=== PATIENT | female | born 1960 | race African-American/Black ===

== ENCOUNTER 2017-11-28 10:22 | Inpatient (IN) | payer OTHER ==
[~2017-11-28] VITALS: Ht 162.6 cm; Wt 49.0 kg
[2017-11-28] VITALS (29 sets, daily range): BP systolic 101–144; BP diastolic 49–71
[2017-11-28] MEDS ORDERED: NACL 0.9% 500 ML IV ONE ×2 (10:35→23:05)
--- NOTE | 2017-11-28 10:38 | NUR ---
PT BIBA ALS TO BED 10 FOR LOC
--- NOTE | 2017-11-28 10:40 | NUR ---
PATIENT TO BED #10. MONITORED.OXYGEN 2LNC ADM. DR. HOGAN MADE AWARE OF PATIENTS CONDITION. BS STILL READING HIGH. IVF STARTED
--- NOTE | 2017-11-28 10:45 | NUR ---
EKG REVIEWED BY DR. HOGAN.
--- NOTE | 2017-11-28 10:55 | NUR ---
DR. HOGAN AT BEDSIDE
[2017-11-28] MEDS ORDERED: NACL 0.9% 1,000 ML IV ONE ×2 (11:05→19:50)
--- NOTE | 2017-11-28 11:19 | NUR ---
Note undone in EDM - 11/28/17 at 1413 by LUIS PT IN BED 3 2 IVS INTACT AND RUNNING NACL BOLUS FLUIDS. PT IS MOANING AND DOESNT ANSWER QUESTIONS FROM STAFF. PT WAS BIBA AT 1035 SHE WAS FOUND ON FLOOR BY FAMILY UNRESPONSIVE. PT GIVEN 0.5MG NARCAN ON THE FIELD. PT WOKE UP SHE HAD [place] ROSEMARIES. VS FOLLOWS B/S TOO HIGH TO BE READ, T 91.9 RECTALLY WARMING MEASURES PROVIDED WITH BLANKETS AND BOOTIES. R 33 PT ON N/C AT 2 L O2 100 P 79 . WILL CONTINUE TO MONITOR PT.
--- NOTE | 2017-11-28 11:19 | NUR ---
PT MOVED TO BED 3
--- NOTE | 2017-11-28 11:21 | NUR ---
Note guerorangel in EDM - 11/28/17 at 1412 by Makers AlleyTAQUERIA PATIENT PRESENTS TO ED WITH FOUND DOWN AT HOME BY FAMILY--UNRESPONSIVE WITH GCS 3 IN FIELD PER EMS GIVEN NARCAN IMMEDIATE RESPONSIVE TO TACTILE STIMULI PER EMS PT REMAINS SOMNOLENT IN ER RAPID SHALLOW RESP BLOOD SUGAR CRITICAL HIGH AT BEDSIDE---MD AT BEDSIDE BLOOD DRAWN AND HANDED TO LAB NO EMESIS AT THIS TIME SKIN IS PALE COOL/DRY; GCS 8-9 WITH EVEN AND STEADY GAIT; LUNGS DIMINISHED BL; HR EVEN AND REGULAR; PATIENT POSITIONED FOR COMFORT; HOB ELEVATED; BEDRAILS UP X2; BED DOWN. ER MD MADE AWARE OF PT STATUS.
[2017-11-28 11:30] LABS: HEMATOCRIT 47.7 % (36-48); HEMOGLOBIN 13.8 g/dL (12.0-16.0); MEAN CORPUSCULAR HEMOGLOBIN 27 pg (27-31); MEAN CORPUSCULAR HGB CONC 29 g/dL (33-37); PLATELET COUNT (AUTO) 341 K/uL (140-450); RED BLOOD CELL COUNT(AUTO) 5.18 MIL/uL (4.20-5.40); RED CELL DISTRIBUTION WIDTH 15.8 % (11.6-13.7); WHITE BLOOD COUNT (AUTO) 24.9 K/uL (4.8-10.8)
[2017-11-28 11:40] LABS: CHLORIDE 94 mmol/L (98-107); CREATININE 3.4 mg/dL (0.6-1.3); GFR ARICAN-AMERICAN 18 mL/min (>90); POTASSIUM 4.8 mmol/L (3.5-5.1); SODIUM SERUM 131 mmol/L (136-145); UREA NITROGEN, BLOOD 30 mg/dL (7-18)
[2017-11-28 11:42] LABS: ANION GAP 38.4 (8-16)
[2017-11-28 11:44] LABS: BASOPHILS % (MANUAL) 0 % (0-2); EOSINOPHILS % (MANUAL) 0 % (0-4); LYMPHOCYTES % (MANUAL) 8 % (20-46); MONOCYTES % (MANUAL) 6 % (5-12)
[2017-11-28 11:51] LABS: ACETONE, SERUM SMALL (NEGATIVE)
[2017-11-28 11:53] LABS: ALBUMIN 3.1 g/dL (3.4-5.0); ASPARTATE AMINOTRANSFERASE 24 U/L (15-37); SALICYLATE 7.8 mg/dL (2.8-20.0); TOTAL BILIRUBIN 0.4 mg/dL (0.0-1.0)
[2017-11-28 11:54] LABS: ACETAMINOPHEN < 0.5 ug/ml (10-30)
[2017-11-28] MEDS ORDERED: INSULIN REGULAR, HUMAN 100 UNIT in NACL 0.9% 100 ML IV ONE ×2 (12:05)
[2017-11-28] MEDS ORDERED: LEVOFLOXACIN 500 MG/D5W PREMIX 100 ML IV ONE (12:25)
[2017-11-28] MEDS ORDERED: PIPERACILLIN/TAZOBACTAM 3.375 GM in DEXTROSE 5% 50 ML IV ONE (12:25)
[2017-11-28] MEDS ORDERED: INSULIN REGULAR, HUMAN 100 UNIT/ML VIAL SUBQ ONE (12:25)
[2017-11-28] MEDS ORDERED: SODIUM BICARBONATE 8.4% PFS 50 MEQ/50 ML SYR IVP ONE ×3 (12:25→18:08)
--- NOTE | 2017-11-28 12:38 | NUR ---
ARPAN ZAYAS INITIATED
[2017-11-28] MEDS ORDERED: PIPERACILLIN/TAZOBACTAM 3.375 GM VIAL IV ONE (12:43)
[2017-11-28 12:48] LABS: BARBITURATE, URINE NEG ng/ml (NEG <=200); BENZODIAZEPINE, URINE NEG ng/mL (NEG <=200); CANNABINOID, URINE NEG ng/mL (NEG <=50); COCAINE, URINE NEG ng/mL (NEG <=300); OPIATE, URINE NEG ng/mL (NEG <=2000); PHENCYCLIDINE SCREEN,URINE NEG ng/mL (NEG <=25)
[2017-11-28] MEDS ORDERED: DEXTROSE 50% 50 ML SYR IVP PRN (13:15)
[2017-11-28] MEDS ORDERED: ONDANSETRON 4 MG/2 ML VIAL IVP PRN (13:15)
[2017-11-28] MEDS ORDERED: INSULIN REGULAR, HUMAN 100 UNIT in NACL 0.9% 100 ML IV SCH ×2 (13:15)
[2017-11-28] MEDS ORDERED: ACETAMINOPHEN 325 MG TAB PO PRN (13:15)
[2017-11-28 13:24] LABS: ANION GAP 38.6 (8-16)
[2017-11-28 13:30] LABS: CARBON DIOXIDE 6.5 mmol/L (21-32)
[2017-11-28 13:35] LABS: POTASSIUM 5.1 mmol/L (3.5-5.1)
[2017-11-28] MEDS: NACL 0.9% 1,000 ML IV SCH ×2 (13:35→20:23)
--- NOTE | 2017-11-28 13:40 | NUR ---
REMAINS SOMNOLENT, RESP RATE HAS IMPROVED BUT REMAINS TACHYPNIC ARPAN HUGGER IN PLACE---WILL CONTINUE TO MONITOR BLOOD SUGAR OR/AND ANY CHANGES. DISPO ICU 3
[2017-11-28] MEDS: BLOOD GLUCOSE MONITORING 1 DEV DEV FS SCH ×11 (14:15→23:30)
--- NOTE | 2017-11-28 14:26 | NUR ---
NO CHANGES TO INTERVENTION AT THIS TIME PER ---NOTIFIED ACCUCHECK REMAINS CH
--- NOTE | 2017-11-28 14:33 | NUR ---
PT TAKEN TO ICU
[2017-11-28 14:36] LABS: BILIRUBIN,URINE 1+ (NEGATIVE); BLOOD, URINE 2+ (NEGATIVE); LEUKOCYTE ESTERASE ,URINE NEGATIVE (NEGATIVE); NITRITE, URINE NEGATIVE (NEGATIVE); PH,URINE 5.5 (5.0-9.0); UGLUCOSE 3+ (NEGATIVE)
[2017-11-28 14:44] LABS: APPEARANCE,URINE HAZY (CLEAR); COLOR,URINE STRAW (YELLOW)
--- NOTE | 2017-11-28 14:45 | NUR ---
RECEIVED PATIENT FROM LIBRARY DIRECTOR FOR CONTINUITY OF CARE. PATIENT IS AA0X1, UNABLE TO FOLLOW COMMANDS OR MAKE NEEDS KNOWN. PATIENT RESPIRATIONS IS LABORED AND SYMMETRICAL, SHE IS ON 3L NASAL CANNULA. SHE HAS IV SITE TO RIGHT EJ. SR ON MONITOR. PATIENT SKIN IS INTACT WARM AND DRY. CALL LIGHT WITHIN REACH. HOB 30 DEGREES IN LOW POSITION. NO SIGNS OF DISTRESS AT THIS TIME.
--- NOTE | 2017-11-28 14:46 | NUR ---
Pt report given to MIRNA GUIDRY. Transfer of care at this timE TO ICU3
--- NOTE | 2017-11-28 15:15 | NUR ---
END USER CONSULTANT IN TO FIX POLICE AIDE DUE TO EKG NOT WORKING PROPERLY, UNABLE TO READ LEADS.
--- NOTE | 2017-11-28 15:20 | NUR ---
OPERATIONS SUPERVISOR IS WORKING PROPERLY, VS STABLE AT THIS TIME, NO SIGNS OF ACUTE DISTRESS FROM PATIENT
[2017-11-28 15:22] LABS: RBC,URINE 0-5 (RARE) /HPF (0-5); WBC,URINE NONE SEEN /HPF (0-5); YEAST,URINE Moderate /HPF (None Seen)
--- NOTE | 2017-11-28 15:30 | NUR ---
PATIENT FAMILY IN TO SEE PATIENT, NO SIGNS OF DISTRESS NOTED AT THIS TIME
--- NOTE | 2017-11-28 16:47 | NUR ---
KIMANI REPORTED TO DR Jp GUNDERSON
[2017-11-28] MEDS ORDERED: PIPER/TAZO 3.375GM/D5W PREMIX 50 ML IV SCH (18:00)
--- NOTE | 2017-11-28 18:00 | NUR ---
DR. GARCIA IN TO SEE AND EXAMINE PATIENT, UPDATED ON PATIENT CONDITION. WILL FOLLOW UP ON ANY ORDERS.
--- NOTE | 2017-11-28 18:10 | NUR ---
PATIENT WAS INTUBATED BY DR. GARCIA RT AND RN WAS PRESENT DURING THE INTUBATION PATIENT WAS INTUBATED WITH 7.5 ETT 23 CMH20 PLACED ON VENT AC 14, VT 350 , P5 FIO2 50. PATIENT IS STABLE AT THIS TIME NO SHORTNESS OF BREATH. NO COMPLICATIONS WITH INTUBATION. VENT SETTINGS WILL BE MODIFIED BASED ON ABG RESULTS AND DOCTORS ORDERS.
--- NOTE | 2017-11-28 18:15 | NUR ---
DR. GARCIA INTUBATED PATIENT. PATIENT TOLERATED PROCEDURE WELL. ORDERS CARRIED OUT.
[2017-11-28] MEDS: PROPOFOL 1000 MG/100 ML PREMIX 100 ML IV PRN ×2 (18:16→23:37)
[2017-11-28] MEDS ORDERED: PROPOFOL 1000 MG/100 ML PREMIX 100 ML IV ONE (18:16)
--- NOTE | 2017-11-28 18:30 | NUR ---
INCREASED PROPOFOL DRIP DUE TO PATIENT AGITATED AND TRYING TO PULL ON ETT TUBE.
--- NOTE | 2017-11-28 18:57 | NUR ---
DUONEB NOT IN EMAR OR PYXIS AT THIS TIME SO UNABLE TO GIVE HHN TREATMENT
[2017-11-28] MEDS: ALBUTEROL SULFATE/IPRATROPIU 3 ML SOL IH SCH ×2 (19:29→22:57)
--- NOTE | 2017-11-28 19:45 | NUR ---
ENDORSED CONTINUITY OF CARE TO SUCTION DREDGE DUMPING SUPERVISOR RN, JUAN A. PATIENT PRESENTS NO SIGN OF DISTRESS AT THIS TIME
--- NOTE | 2017-11-28 19:46 | NUR ---
RECEIVED REPORT FROM CHAO HOSKINS. INITIAL ASSESSMENT COMPLETED. PT IS NON-VERBAL. ETT TO VENT FIO2 50% TV 300 AC [address] OGT IN PL[address], DRAINED BY GRAVITY. ATTACHED TO FOOD AND NUTRITION SUPERVISOR, PULSE OXIMETER. IV ACCESS AT RIGHT EJ 22G AND RIGHT HAND 22G, PATENT, INTACT AT THIS TIME. ON PROPOFOL DRIP AND INSULIN DRIP. DELANEY CATH IN PLACE. BED IN LOW POSITION, SAFETY MEASURE ENSURE. WILL CONTINUE TO MONITOR.
--- NOTE | 2017-11-28 20:04 | NUR ---
PATIENT'S SISTER AND DAUGHTER AT BEDSIDE, UPDATED OF PATIENT'S CONDITION AT THIS TIME.
--- NOTE | 2017-11-28 20:25 | NUR ---
FIO2 INCREASED TO 40% BY RT MATHEW WILL CONTINUE TO MONITOR. Addendum: 11/28/17 at 2113 by Caitlin Navarrete RN FIO2 DECREASED INSTEAD OF INCREASED.
--- NOTE | 2017-11-28 20:25 | NUR ---
PULLED ETT BACK TO 22CM AT TEETH AND DECREASED FIO2 NO 40% B/S CLEAR AND BILATERAL, RR 27 SAO2 98% HR 85BPM
--- NOTE | 2017-11-28 21:25 | NUR ---
PAGED DR. CACERES TO UPDATE HIM OF PATIEN'TS RESULT, WAITING FOR CALLBACK.
--- NOTE | 2017-11-28 21:45 | NUR ---
PAGED DR. GARCIA, TO UPDATE HER OF PATIENT'S ABG RESULT, WAITING FOR CALL BACK.
--- NOTE | 2017-11-28 22:10 | NUR ---
RECEIVED A CALLBACK FROM DR. GARCIA, UPDATED OF PT'S ABG RESULT AND PT'S CONDITION. WITH ORDERS TO START TUBE FEEDING.
--- NOTE | 2017-11-28 22:15 | NUR ---
CALLED DR. CHUY GUNDERSON, UPDATED OF PATIENT'S CONDITION AND BLOOD SUGAR LEVEL. HE SAID TO CONTINUE INSULIN AT 5 UNITS/HR AT THIS TIME. WITH ORDERS MADE FOR BMP EVERY 6 HOURS.
[2017-11-28 23:09] LABS: ANION GAP 28.5 (8-16); CARBON DIOXIDE 10.5 mmol/L (21-32); CREATININE 3.1 mg/dL (0.6-1.3)
--- NOTE | 2017-11-28 23:30 | NUR ---
DIABETISOURCE AC STARTED ORDERED VIA OGT AT 10ML/HR. GASTRIC RESIDUAL [address] ONEIL AT BEDSIDE. UPDATED OF PT'S CONDITION. WITH NEW ORDERS MADE.
[2017-11-28] MEDS: LEVOFLOXACIN 250 MG/D5 PREMIX 50 ML IV SCH (23:31)
[2017-11-28] MEDS: MORPHINE SULFATE 4 MG/ML SYR IVP PRN (23:44)
[2017-11-29] VITALS (100 sets, daily range): BP systolic 91–164; BP diastolic 28–100
[2017-11-29] MEDS ORDERED: cefTRIAXone 1,000 MG VIAL ONE (00:16)
[2017-11-29] MEDS: BLOOD GLUCOSE MONITORING 1 DEV DEV FS SCH ×24 (00:46→23:15)
--- NOTE | 2017-11-29 01:59 | NUR ---
INFLUENZA A & B SPECIMEN SENT TO LAB. WILL FOLLOW UP RESULT.
--- NOTE | 2017-11-29 02:35 | NUR ---
NO GASTRIC RESIDUAL. FEEDING INCREASED TO 15ML/HR. WILL CONTINUE TO MONITOR.
[2017-11-29] MEDS: ALBUTEROL SULFATE/IPRATROPIU 3 ML SOL IH SCH ×6 (03:13→22:58)
--- NOTE | 2017-11-29 03:15 | NUR ---
SAO2-100% VIA PULSE-OX, DECREASED FIO2 TO 35%
--- NOTE | 2017-11-29 03:57 | NUR ---
NO SIGNS OF DISTRESS AT THIS TIME. WILL CONTINUE TO MONITOR.
[2017-11-29] MEDS: MORPHINE SULFATE 4 MG/ML SYR IVP PRN ×3 (04:26→22:50)
--- NOTE | 2017-11-29 04:35 | NUR ---
PATIENT TAKEN FOR CT HEAD SCAN AND CHEST X-RAY. VIA 100% O2 VIA AMBU BAG AND RETURNED TO ICU AT 0458 W/O ANY RESP. DISTRESS NOTED. PATIENT PLACED BACK ON SAME VENT. SETTINGS. IN ICU
--- NOTE | 2017-11-29 05:52 | NUR ---
MORNING CARE DONE. PT OGT FEEDING INCREASED TO 20ML/HR. NO GASTRIC RESIDUAL AT THIS TIME. WILL CONTINUE TO MONITOR.
--- NOTE | 2017-11-29 06:29 | NUR ---
RECEIVED PT ON CARESCAPE ON A/C 14 VT350 PEEP 5 FIO2 35 ALARMS ARE ON AND AUDIBLE BMV HOB PTS ET TUBE SIZE 7.5 IS SECURE 22 CM TEETH ANCHOR FAST IN PLACE BS RHONCI PT IN HF ASLEEP I\L HHN GIVEN WITH 3MG DUONEB VENT PLUGGED INTO RED OUTLET NO DISTRESS NOTED
[2017-11-29] MEDS: PROPOFOL 1000 MG/100 ML PREMIX 100 ML IV PRN ×2 (06:31→21:55)
[2017-11-29 06:52] LABS: HEMATOCRIT 35.4 % (36-48); HEMOGLOBIN 12.3 g/dL (12.0-16.0); MEAN CORPUSCULAR HEMOGLOBIN 28 pg (27-31); MEAN CORPUSCULAR HGB CONC 35 g/dL (33-37); PLATELET COUNT (AUTO) 221 K/uL (140-450); RED BLOOD CELL COUNT(AUTO) 4.42 MIL/uL (4.20-5.40); RED CELL DISTRIBUTION WIDTH 12.5 % (11.6-13.7); WHITE BLOOD COUNT (AUTO) 12.3 K/uL (4.8-10.8)
--- NOTE | 2017-11-29 06:56 | NUR ---
NS 500ML BOLUS NOT GIVEN, MAP IS GREATER THAN 65 AND SBP GREATER THAN 100 SIN[address]ST [address]IGHT. [address]. GARCIA, TO GIVE IF MAP IS LESS THAN 65 AND SBP LESS THAN 100.
[2017-11-29 07:09] LABS: ANION GAP 20.6 (8-16); CARBON DIOXIDE 16.9 mmol/L (21-32); POTASSIUM 2.5 mmol/L (3.5-5.1)
[2017-11-29 07:10] LABS: ALBUMIN 2.4 g/dL (3.4-5.0); CREATININE 3.7 mg/dL (0.6-1.3); MAGNESIUM 1.8 mg/dL (1.8-2.4); TOTAL BILIRUBIN 0.4 mg/dL (0.0-1.0)
[2017-11-29 07:11] LABS: PHOSPHORUS 0.4 mg/dL (2.5-4.9)
--- NOTE | 2017-11-29 07:18 | NUR ---
RECEIVED BEDSIDE REPORT FROM DIRECTOR OF DEMENTIA OPERATIONS RNJUAN A FOR CONTINUITY OF CARE. PATIENT IS SEDATED, AAOX1, RESPONDS TO LIGHT STIMULI. SHE HAS IV SITE TO RIGHT EJ, ASYMPTOMATIC, INTACT AND PATENT, WITH PROPOFOL DRIP RUNNING AT 25 MCG/HR. AND IV SITE TO RIGHT HAND, ASYMPTOMATIC, INTACT AND PATENT. SKIN IS INTACT, WARM AND DRY WITH INSULIN DRIP RUNNING AT 5UNITS/HR. SHE HAS ETT TO VENT, RESPIRATIONS UNLABORED AND EVEN. PATIENT HAS AND OGT TO TUBE FEEDING AT 20ML/HR WITH [address] ON MONITOR. PATIENT HAS A DELANEY CATHETER TO YELLOW URINE. HOB IS 30 DEGREES IN LOWEST POSSIBLE POSITION. CALL LIGHT IS WITHIN REACH. NO DISTRESS NOTED AT THIS TIME. WILL CONTINUE TO MONITOR
--- NOTE | 2017-11-29 07:18 | NUR ---
REPORT GIVEN TO CHAO HOSKINS FOR CONTINUITY OF CARE.
[2017-11-29] MEDS ORDERED: KCL 20 MEQ/WATER INJ PREMIX 200 ML IV ONE ×3 (07:45→22:23)
[2017-11-29] MEDS ORDERED: POTASSIUM PHOSPHATE 30 MM in NACL 0.9% 250 ML IV ONE ×2 (07:45→14:25)
[2017-11-29 07:54] LABS: LYMPHOCYTES % (MANUAL) 8 % (20-46); MONOCYTES % (MANUAL) 2 % (5-12)
[2017-11-29] MEDS ORDERED: SODIUM PHOS / POTASSIUM PHOS 1 PKT PDR PO SCH (08:09)
[2017-11-29] MEDS ORDERED: POTASSIUM CHLORIDE 20% 40 MEQ/15 ML UDC PO SCH (08:30)
[2017-11-29] MEDS ORDERED: OSELTAMIVIR PHOSPHATE 75 MG CAP PO SCH (09:00)
[2017-11-29] MEDS ORDERED: CLINICAL MONITORING MC SCH (09:00)
[2017-11-29] MEDS: NACL 0.9% 1,000 ML IV SCH (09:08)
--- NOTE | 2017-11-29 09:43 | NUR ---
PATIENT HAS BEEN SCREENED AND CATEGORIZED HIGH NUTRITION RISK. PATIENT WILL BE SEEN WITHIN 1-2 DAYS OF ADMISSION. 11/29/17 - 11/30/[address]
--- NOTE | 2017-11-29 12:06 | NUR ---
NICHOLE LUCIO SPOKE WITH [facility] NICHOLE Mejias AND GAVE HIM A VERBAL CLINICAL UPDATE ON THE PATIENT PH# [phone] AND HE REQUESTED REVIEW TO BE FAXED TO [place] [facility] [address] CASE# [id number]. INITIAL REVIEW FAXED TO [facility] [address] ATTN: NICHOLE Mejias PH# [phone], CASE# [id number].
[2017-11-29 12:50] LABS: ANION GAP 17.4 (8-16); CARBON DIOXIDE 20.1 mmol/L (21-32)
[2017-11-29 12:54] LABS: POTASSIUM 2.5 mmol/L (3.5-5.1)
[2017-11-29] MEDS ORDERED: KCL 20 MEQ/WATER INJ PREMIX 200 ML IV SCH (13:06)
--- NOTE | 2017-11-29 13:20 | NUR ---
KIMANI REPORTED TO DR GARCIA
--- NOTE | 2017-11-29 13:23 | NUR ---
PATIENT FAMILY AT BEDSIDE. UPDATED ON PATIENT'S CONDITION. WILL CONTINUE TO MONITOR
--- NOTE | 2017-11-29 13:38 | NUR ---
DR. CANTU AND MEDICAL STUDENT IN TO SEE AND EXAMINE PATIENT, DISCUSSED PLAN WITH FAMILY AT BEDSIDE. UPDATED ON PATIENT'S CONDITION, WILL FOLLOW UP WITH ANY ORDERS.
[2017-11-29] MEDS ORDERED: PNEUMOCOCCAL VACCINE 23 MCG/0.5 ML VIAL IMVAC SCH (13:40)
--- NOTE | 2017-11-29 13:51 | NUR ---
DR. CHUY GUNDERSON AT BEDSIDE, UPDATED ON PATIENT'S CONDITION. WILL FOLLOW UP ON ANY ORDERS.
--- NOTE | 2017-11-29 14:04 | NUR ---
RECEIVED CALL FROM , UPDATED ON PATIENT'S CONDITION, ORDERS RECEIVED. WILL CARRY OUT.
--- NOTE | 2017-11-29 14:05 | NUR ---
ADVANCED ET TUBE TO 23CM PER DR CACERES CXR ORDERED BS EQUAL
--- NOTE | 2017-11-29 14:31 | NUR ---
DIRECTOR SOCIAL WELFARE AT BEDSIDE, PATIENT STARTED ON DIALYSIS. NO SIGNS OF DISTRESS NOTED AT THIS TIME. Addendum: 11/29/17 at 1432 by Socrates Peace RN WRONG PATIENT
--- NOTE | 2017-11-29 14:41 | NUR ---
11/29/17 RD INITIAL ASSESSMENT COMPLETED PLEASE REFER TO NUTRITION ASSESSMENT UNDER CARE ACTIVITY FOR ESTIMATED NUTRITIONAL NEEDS. 1. RECOMMEND DIABETESOURCE AC 55 ML X 24 HR. BEGIN FEEDS AT 20 ML/HR, ADVANCE 15 ML/HR Q SHIFT TOLERATED UNTIL GOAL RATE IS REACHED. PROVIDES 1584 KCAL, 79 G PORTEIN, 1079 ML FREE WATER. 2. RECOMMEND FLUSH 10 ML Q6H. PROVIDES [address]. 3. RD TO FOLLOW-UP DAYS 2-3, HIGH RISK JAROD MALONE RD
--- NOTE | 2017-11-29 14:58 | NUR ---
DR. GARCIA CALLED TO FOLLOW UP ON PT. UPDATED ON PT'S CONDITION. MADE AWARE OF THE CRITICAL FINDINGS ON THE CXR. GAVE ORDERS
--- NOTE | 2017-11-29 15:09 | NUR ---
PULLED BACK ET TUBE TO 20CM PER DR GARCIA CXR ORDERED ANCHOR FAST IN PLACE
--- NOTE | 2017-11-29 15:33 | NUR ---
VENT CHECK, PT WAS SXN MODERATED OF CREAM COLOR SECRETIONS
[2017-11-29 15:36] LABS: ANION GAP 16.1 (8-16); CARBON DIOXIDE 18.9 mmol/L (21-32); CREATININE 4.1 mg/dL (0.6-1.3)
--- NOTE | 2017-11-29 15:50 | NUR ---
DECREASED FIO2 TO 45 SPO2 94
[2017-11-29] MEDS ORDERED: DEXT 5% / NACL 0.45% 1,000 ML IV SCH (16:05)
[2017-11-29] MEDS ORDERED: NACL 0.45% 1,000 ML IV SCH (16:05)
[2017-11-29] MEDS ORDERED: SODIUM PHOSPHATE 30 MMOLE in NACL 0.9% 500 ML IV SCH (16:30)
--- NOTE | 2017-11-29 17:07 | NUR ---
STOPPED PATIENT'S TUBE FEEDING DUE TO 200 ML RESIDUAL. WILL RECHECK IN PATIENT IN 1 HOUR.
--- NOTE | 2017-11-29 17:56 | NUR ---
IN TO SEE PATIENT, UPDATED ON PATIENT'S CONDITION. WILL FOLLOW UP ON ANY ORDERS.
[2017-11-29] MEDS: POTASSIUM CHL 20 MEQ/ 1/2 NS 1,000 ML IV SCH (18:06)
[2017-11-29] MEDS ORDERED: FUROSEMIDE 40 MG/4 ML VIAL IVP SCH (18:12)
--- NOTE | 2017-11-29 19:05 | NUR ---
ENDORSED CONTINUITY OF CARE TO CONSTRUCTION ENGINEER RN. NO SIGNS OF DISTRESS NOTED AT THIS TIME.
[2017-11-29] MEDS ORDERED: INSULIN REGULAR, HUMAN 100 UNIT in NACL 0.9% 100 ML IV SCH ×4 (19:25→22:05)
--- NOTE | 2017-11-29 19:30 | NUR ---
RECEIVED REPORT FROM DAY SHIFT RN. NO S/S OF DISTRESS NOTED. WILL CONTINUE TO OBSERVE.
--- NOTE | 2017-11-29 19:46 | NUR ---
PT RELAXED, EYES CLOSED, OPENS EYES TO NAME. MOVING ALL EXTREMITIES. 7.5 ETT TO VENT 20 CM @ LIP, AC 45% 350 TV, R 14 PEEP 5. LUNGS CLEAR BILATERALLY. SINUS TACHYCARDIA 115. + 2 BILATERAL UPPER AND LOWER EXTREMITIES. NO EDEMA NOTED. OGT IN PLACE DIABETIC SOURCE, PATENT VERIFIED BY AUSCULTATION. DELANEY IN PLACE YELLOW URINE NOTED. SKIN INTACT, SCDS IN PLACE. PERIPHERAL IVS NOTED TO R HAND, R FA, R EXTERNAL JUGULAR. INSULIN DRIP CURRENTLY RUNNING @ 10 UNITS/HR, PROPOFOL @ 50 MCG/KG/MIN RASS SCORE OF -3. WILL CONTINUE TO OBSERVE.
--- NOTE | 2017-11-29 19:58 | NUR ---
SPOKE WITH DR. CANTU, UPDATED REGARDING BLOOD SUGAR, CLARIFIED INSULIN DRIP TO RUN @ 10 UNITS/HR FOR NOW. STATED TO CALL BACK REGARDING LATEST BMP DRAWN. NO ACUTE DISTRESS NOTED. WILL CONTINUE TO OBSERVE.
[2017-11-29 20:27] LABS: ANION GAP 17.5 (8-16); CARBON DIOXIDE 18.1 mmol/L (21-32)
[2017-11-29] MEDS ORDERED: SODIUM BICARBONATE 8.4% 75 MEQ in DEXT 5% / NACL 0.45% 1,000 ML IV SCH (20:30)
--- NOTE | 2017-11-29 20:30 | NUR ---
SPOKE WITH DR. HARE REGARDING URINE OUTPUT. NOTIFIED ABOUT 150 ML OUTPUT SINCE 1900 START OF SHIFT. NEW ORDERS RECEIVED TO CHANGE D5 1/2NS 100 ML/HR IVF TO D5 1/2 NS WITH 1.5 AMP BICARB @ 65 ML/HR; STATED TO KEEP 1/2NS WITH 20KCL RUNNING @ 100 ML/HR. SEE EMAR FOR DETAILS. WILL CONTINUE TO OBSERVE.
[2017-11-29 20:38] LABS: CREATININE 4.3 mg/dL (0.6-1.3); POTASSIUM 2.6 mmol/L (3.5-5.1)
--- NOTE | 2017-11-29 20:55 | NUR ---
PT AGITATED, FACIAL GRIMACING, BODY TIGHT, RIGID, FLAILING ARMS. RT @ BEDSIDE. WILL MEDICATE WITH PRN SEDATION, SEE EMAR FOR DETAILS. WILL CONTINUE TO OBSERVE.
--- NOTE | 2017-11-29 20:55 | NUR ---
PATIENT O2 DESATUATION TO 89% VIA PULSE-OX, INCREASED FIO2TO 70% BREATH SOUNDS CLEAR, AND SAO2 IS 94%. PATIENT IS IRRITABLE AND RR IS 47BPM, BECKIE RN, WILL BE GIVEN SEDATION
--- NOTE | 2017-11-29 21:00 | NUR ---
RECEIVED BMP RESULTS AT 2035 THAT WAS DRAWN AROUND 1999. CALLING DR. CANTU'S PHONE NUMBER AT [phone] SINCE 2035 BUT UNABLE TO GET HOLD OF MD DUE TO VOICE MAIL NOT YET ACTIVATED.
[2017-11-29] MEDS ORDERED: SODIUM BICARBONATE 8.4% PFS 50 MEQ/50 ML SYR IVP ONE (21:08)
[2017-11-29] MEDS: LORazepam 2 MG/ML VIAL IVP PRN (21:14)
--- NOTE | 2017-11-29 22:00 | NUR ---
INFORMED MD ABOUT CRITICAL K LEVEL OF 2.6 WELL ELEVATED BUN CREATININE. 40 MEQ KCL RIDER X1 ORDERED, MD ALSO ORDERED PRN FOR K LEVEL BELOW 3.4 GIVE 40 MEQ K RIDER. WILL CONTINUE TO OBSERVE.
[2017-11-29] MEDS ORDERED: KCL 20 MEQ/WATER INJ PREMIX 200 ML IV PRN (22:05)
--- NOTE | 2017-11-29 22:06 | NUR ---
DR. CANTU CALLED AT 2200, INFORMED THE PHYSICIAN THAT WE CANT GET HOLD OF HER ON HER NUMBER AT [phone] SINCE 2035 BECAUSE HER VOICEMAIL IS NOT YET ACTIVATED. BECKIE, PRIMARY RN SPOKE WITH DR. CANTU, INFORMED THE PHYSICIAN ABOUT CURRENT BMP RESULTS AND ALSO ABOUT DR. HARE'S (NEPHRO) NEW ORDER TO CHANGE IVF.
--- NOTE | 2017-11-29 22:10 | NUR ---
PT RELAXED, ASLEEP, RASS -3. NO S/S OF DISTRESS NOTED. WILL CONTINUE TO OBSERVE.
--- NOTE | 2017-11-29 22:45 | NUR ---
PT FACIAL GRIMACING, GRABBING AT ET TUBE AFTER REPOSITIONING. PRN MORPHINE GIVEN. SEE EMAR FOR DETAILS. NO OTHER ACUTE DISTRESS NOTED. WILL CONTINUE TO OBSERVE.
[2017-11-30] VITALS (108 sets, daily range): BP systolic 12–140; BP diastolic 34–84
--- NOTE | 2017-11-30 00:20 | NUR ---
NOTIFIED DR HARE ABOUT BUN CREATININE RESULTS, WELL 350 ML URINE OUTPUT. MD AWARE. NEW ORDERS GIVEN, NA BICARB TABS Q6H, AND TO ADD PHOS LEVEL TO LAST BLOOD DRAW. NO ACUTE DISTRESS NOTED. WILL CONTINUE TO OBSERVE.
[2017-11-30] MEDS: BLOOD GLUCOSE MONITORING 1 DEV DEV FS SCH ×19 (00:32→20:58)
[2017-11-30 00:36] LABS: ANION GAP 19.1 (8-16); CARBON DIOXIDE 18.6 mmol/L (21-32)
[2017-11-30 00:38] LABS: POTASSIUM 2.7 mmol/L (3.5-5.1)
[2017-11-30 00:39] LABS: CREATININE 4.4 mg/dL (0.6-1.3)
[2017-11-30] MEDS: SODIUM BICARBONATE 650 MG TAB PO SCH ×4 (01:00→18:30)
--- NOTE | 2017-11-30 01:47 | NUR ---
DR. HARE CALLED AT 0140, ORDERED TO DC D5 1/2 NS WITH 1.5 AMPS NAHCO3 AND REPLACED IT WITH D5 1/2 NS AT 65 MLS/HR.
[2017-11-30] MEDS: DEXT 5% / NACL 0.45% 1,000 ML IV SCH ×2 (01:57→17:04)
--- NOTE | 2017-11-30 02:25 | NUR ---
PT HAVING FACIAL GRIMACES, REPOSITIONED FOR COMFORT, WILL MEDICATE FOR PRN PAIN. SEE EMAR FOR DETAILS. WILL CONTINUE TO OBSERVE.
[2017-11-30] MEDS: HYDROcodone/APAP 5/325 MG 1 TAB TAB PO PRN (02:31)
--- NOTE | 2017-11-30 03:15 | NUR ---
PT TACHYPNEIC 45 RR, SPO2 92%, FLAILING ARMS, APPEARS AGITATED. WILL GIVE PRN ATIVAN. SEE EMAR FOR FURTHER DETAILS. WILL CONTINUE TO OBSERVE.
[2017-11-30] MEDS: LORazepam 2 MG/ML VIAL IVP PRN (03:18)
[2017-11-30] MEDS: ALBUTEROL SULFATE/IPRATROPIU 3 ML SOL IH SCH ×6 (03:20→23:06)
[2017-11-30] MEDS: PROPOFOL 1000 MG/100 ML PREMIX 100 ML IV PRN ×2 (03:33→12:39)
[2017-11-30 04:19] LABS: BASOPHILS # (AUTO) 0.1 K/uL (0.00-0.22); BASOPHILS % (AUTO) 0.7 % (0.0-2.0); EOSINOPHILS % (AUTO) 0.1 % (0.0-4.0); HEMATOCRIT 34.4 % (36-48); HEMOGLOBIN 11.7 g/dL (12.0-16.0); LYMPHOCYTES # (AUTO) 1.2 K/uL (2.5-16.5); LYMPHOCYTES % (AUTO) 9.8 % (20.5-51.1); MEAN CORPUSCULAR HEMOGLOBIN 27 pg (27-31); MEAN CORPUSCULAR HGB CONC 34 g/dL (33-37); MEAN CORPUSCULAR VOLUME 78.9 fL (80-94); MONOCYTES # (AUTO) 0.4 K/uL (0.8-1.0); MONOCYTES % (AUTO) 2.8 % (1.7-9.3); NEUTROPHILS # (AUTO) 10.9 K/uL (1.8-7.7); NEUTROPHILS % (AUTO) 86.6 % (42.2-75.2); PLATELET COUNT (AUTO) 181 K/uL (140-450); RED BLOOD CELL COUNT(AUTO) 4.36 MIL/uL (4.20-5.40); RED CELL DISTRIBUTION WIDTH 13.4 % (11.6-13.7); WHITE BLOOD COUNT (AUTO) 12.6 K/uL (4.8-10.8)
[2017-11-30 04:28] LABS: ALBUMIN 1.8 g/dL (3.4-5.0); CARBON DIOXIDE 17.9 mmol/L (21-32); MAGNESIUM 1.7 mg/dL (1.8-2.4); PHOSPHORUS 2.3 mg/dL (2.5-4.9); POTASSIUM 3.9 mmol/L (3.5-5.1); TOTAL BILIRUBIN 0.2 mg/dL (0.0-1.0)
[2017-11-30 04:46] LABS: CREATININE 4.3 mg/dL (0.6-1.3)
--- NOTE | 2017-11-30 04:58 | NUR ---
PT HAS FACIAL GRIMACES, BITING ET TUBE, RR 40S, BP ELEVATED, PRN MORPHINE FOR PAIN . SEE EMAR FOR DETAILS. WILL CONTINUE TO MONITOR
[2017-11-30] MEDS: POTASSIUM CHL 20 MEQ/ 1/2 NS 1,000 ML IV SCH ×3 (05:11→23:35)
[2017-11-30] MEDS: MORPHINE SULFATE 4 MG/ML SYR IVP PRN ×2 (05:12→09:50)
--- NOTE | 2017-11-30 06:39 | NUR ---
REC'D PT ON CARESCAPE VENT SETTINGS AC 14 VT 350 PEEP 5 FIO2 70% ALARMS ON AND AUDIBLE AMBU BAG IS AT SIDE OF VENT AND VENT IS PLUGGED INTO RED OUTLET, I\L TX GIVEN WITH DUONEB 3ML WITH NO ADVERSE REACTION POST TX, B\S ARE CLEAR BILATERALLY, SXN PT SMALL AMT OF THIN PINK TINT SECRETIONS, PT IS ORALLY INTUBATED WITH 7.5 ET TUBE SECURED WITH ANCHOR FAST AT 20 CM AND SKIN INTEGRITY IS INTACT PT IS SLEEPING WITH NO SIGNS OF DISTRESS NOTED
--- NOTE | 2017-11-30 06:40 | NUR ---
PT APPEARS RELAXED IN BED, ST 110, 96% SPO2. NO S/S OF ACUTE DISTRESS NOTED. WILL CONTINUE TO OBSERVE.
--- NOTE | 2017-11-30 06:53 | NUR ---
UPDATED DR CANTU ABOUT PT CONDITION, LABS REVIEWED, MD AWARE. LAST BLOOD SUGAR 162. STATED TO KEEP INSULIN DRIP @ 6 UNITS/ HR IF BLOOD SUGAR LESS THAN 100 DECREASE TO 4 UNITS/HR. ALSO STATED TO GIVE MG RIDER 2GM FOR 1.7 MG. WILL CONTINUE TO OBSERVE.
[2017-11-30] MEDS ORDERED: MAG SULF 2000 MG/WATER PREMIX 50 ML IV ONE (06:59)
[2017-11-30] MEDS ORDERED: MAG SULF 2000 MG/WATER PREMIX 50 ML IV SCH (07:30)
--- NOTE | 2017-11-30 07:30 | NUR ---
RECEIVED REPORT FROM VANIA RNBECKIE. PT IS SEDATED ON PROPOFOL. PT HAS INSULIN DRIP WITH 20MEQ KCL RUNNING, AND MAG. PT IS TRACH TO VENT, 7.5 ETT TUBE MEASURING 20 AT THE TEETH LINE. PT HAS A UROMETER WITH CLEAR YELLOW URINE IN THE BAG. PT HAS TWO 20 DACIA IVS ON RIGHT FOREARM, ONE LATERAL AND ONE MEDIAL. BOTH ARE INTACT, DRY, FLUSHES WITHOUT PROBLEMS. PT HAS RIGHT IJ, SIZE 22, ASYMPTOMATIC, DRESSING CLEAN AND DRY, INTACT. PT HAS LEFT WRIST 22 DACIA IV, DRESSING IN TACT, ASYMPTOMATIC. PT HAS CLEAR LUNG SOUNDS BILATERALLY. S1S2 HEARD. PT ABDOMEN IS SOFT WITH BOWEL SOUNDS PRESENT IN ALL 4 QUADRANTS. PT HAS SCDS ON. SKIN IS IN TACT, UPPER EXTREMITIES ARE COOL TO THE TOUCH AND LOWER ARE WARM. ALL SKIN IS DRY. BED LOCK AND ALARM IS ON, RAILS ELEVATED, CALL LIGHT WITHIN REACH AND BED IN LOWEST POSITION.
--- NOTE | 2017-11-30 07:34 | NUR ---
REPORT GIVEN TO DAY SHIFT RN ENDORSED CARE. NO ACUTE DISTRESS NOTED.
--- NOTE | 2017-11-30 07:42 | NUR ---
DR. MELENDEZ AND MEDICAL STUDENT CAME TO SEE PT. UPDATE GIVEN AND NO NEW ORDERS RECEIVED.
--- NOTE | 2017-11-30 08:15 | NUR ---
VAP ORAL CARE PROVIDED.
--- NOTE | 2017-11-30 08:42 | NUR ---
RESIDUALS IN STOMACH 311ML. HOLDING FEEDS. BOWEL SOUNDS PRESENT.
--- NOTE | 2017-11-30 09:05 | NUR ---
VENT CHECK, NO SXN REQUIRED AT THIS TIME AIRWAY IS PATENT AND PT IS SLEEPING
[2017-11-30 09:08] LABS: ANION GAP 18.4 (8-16); CARBON DIOXIDE 18.4 mmol/L (21-32); POTASSIUM 3.8 mmol/L (3.5-5.1)
[2017-11-30 09:22] LABS: CREATININE 4.3 mg/dL (0.6-1.3)
--- NOTE | 2017-11-30 09:51 | NUR ---
CM NOTE PER [facility] CASE MANAGER SPECIALIST LOGAN PH# [phone], SHE DOES NOT KNOW YET WHO IS THE SERVICE MEMBER ASSIGNED FOR TODAY FOR THE PATIENT BUT TO CONTINUE FAXING REVIEWS TO [phone]. LOGAN ALSO CONFIRMED THAT THEY HAVE RECEIVED THE CLINICALS FAXED TO [facility] YESTERDAY. FAXED CONCURRENT REVIEW TO [facility] [phone] PH# [phone] INCLUDING THE NUMBER OF THE ATTENDING PHYSICIAN AND NURSING STATION NUMBER.
--- NOTE | 2017-11-30 11:00 | NUR ---
DR. AVELAR AND MEDICAL STUDENT AT BEDSIDE. RECEIVED NEW ORDERS. CHANGED INSULIN DRIP.
--- NOTE | 2017-11-30 11:08 | NUR ---
VENT CHECK, I\L TX GIVEN WITH DUONEB 3ML WITH NO ADVERSE REACTION POST TX SXN PT SMALL AMT OF CLEAR SECRETIONS
--- NOTE | 2017-11-30 11:40 | NUR ---
PT RESTING. SPOKE WITH DR. HARE, RECEIVED NEW ORDERS. BEGINNING Q HR URINE COLLECTION COUNT
--- NOTE | 2017-11-30 11:45 | NUR ---
ESTRELLITA FROM [facility] CALLED TO GET UPDATE ON PATIENT'S STATUS. HE STATED PATIENT IS NOT STABLE TO BE TRANSFERRED FIO2 70%. WILL BE ABLE TO TRANSFER IF FIO2 50%. MARY BETH CYLINDER DEVALVER MADE AWARE.
[2017-11-30] MEDS ORDERED: FUROSEMIDE 40 MG/4 ML VIAL IVP SCH ×2 (11:51→15:10)
--- NOTE | 2017-11-30 12:00 | NUR ---
REPORT TO PAYAM Q2HR FOR URINE OUTPUT, MEASURE Q HOURLY
--- NOTE | 2017-11-30 12:17 | NUR ---
RESIDUALS 192ML. HOLDING FEEDS
--- NOTE | 2017-11-30 12:42 | NUR ---
vent check no sxn required airway is patent pt is sleeping
[2017-11-30 12:50] LABS: ANION GAP 16.1 (8-16); CARBON DIOXIDE 18.6 mmol/L (21-32); POTASSIUM 3.7 mmol/L (3.5-5.1)
[2017-11-30 13:06] LABS: CREATININE 4.5 mg/dL (0.6-1.3)
--- NOTE | 2017-11-30 14:00 | NUR ---
DR HARE GAVE NEW ORDERS FOR SECOND DOSAGE OF LASIX
--- NOTE | 2017-11-30 14:25 | NUR ---
LET DR. HARE KNOW ABOUT UPWARD TREND OF BS
--- NOTE | 2017-11-30 14:47 | NUR ---
TWO ABG DRAWN ON PT AND RESULTS GIVEN TO WITH FIO2 INCREASED TO 100% PT O2 SAT WENT DOWN TO 87% AFTER FIVE MINUTES ON 100% FIO2 O2 SAT ON FINGER IS 95%
--- NOTE | 2017-11-30 14:50 | NUR ---
PAGED DR. CACERES ABOUT CHANGING VENT SETTINGS FROM FIO2 70 TO 100
--- NOTE | 2017-11-30 15:22 | NUR ---
VENT CHECK, SXN PT SMALL AMT OF CLEAR SECRETIONS, B\S ARE CLEAR AND I\L TX GIVEN WITH DUONEB 3ML WITH NO ADVERSE REACTION POST TX
[2017-11-30] MEDS ORDERED: PROBIOTIC SCREEN 1 EA MISC MC PRN (15:30)
--- NOTE | 2017-11-30 16:25 | NUR ---
PT SEDATED. AWAITING DENNIS CATH PLACEMENT FROM DR. MELENDEZ. Addendum: 11/30/17 at 1626 by Carolina Perry RN PT'S BED IS LOCKED AND IN LOWEST POSITION. ALARMS HAVE BEEN ENSURE THEY ARE WORKING. CALL LIGHT WITHIN REACH. CLOSELY MONITOR.
--- NOTE | 2017-11-30 16:50 | NUR ---
VENT CHECK SXN PT SMALL AMT OF CLEAR SECRETIONS PT IS RESTING
[2017-11-30 16:53] LABS: ANION GAP 19.6 (8-16); CARBON DIOXIDE 16.9 mmol/L (21-32); POTASSIUM 4.5 mmol/L (3.5-5.1)
--- NOTE | 2017-11-30 17:15 | NUR ---
PAGED DR. AVELAR TO NOTIFY UP UPWARD BLOOD SUGAR TREND.
[2017-11-30 17:17] LABS: CREATININE 4.6 mg/dL (0.6-1.3)
--- NOTE | 2017-11-30 17:24 | NUR ---
TIME OUT COMPLETED. DR. MELENDEZ AND 2 MEDICAL STUDENTS AT BEDSIDE FOR CENTRAL LINE PLACEMENT.
--- NOTE | 2017-11-30 17:40 | NUR ---
vent changes peep to 8 and decreased fio2 to 80%
[2017-11-30] MEDS ORDERED: fentaNYL 1 MG in NACL 0.9% 80 ML IV PRN (17:45)
[2017-11-30] MEDS: FUROSEMIDE 40 MG/4 ML VIAL IVP SCH (18:31)
--- NOTE | 2017-11-30 18:53 | NUR ---
RECEIVED PT STABLE ON VENT SUPPORT AT DOCUMENTED SETTINGS, HHN TX GIVEN, TOLERATED WELL, NO RESP DISTRESS AT THIS TIME, FOUND 7.5 ETT SECURED AT 19 CM AT THE GUM/TEETH, ALARMS SET AND AUDIBLE, AMBU BAG AT BEDSIDE, VENT PLUGGED INTO RED OUTLET, PULSE OX ON, WILL CONTINUE TO MONITOR.
--- NOTE | 2017-11-30 19:06 | NUR ---
1230: 120 ML OUT 1330: 180 ML OUT 1430: 140 ML OUT 1530: 140 ML OUT 1630: 160 ML OUT 1730: 165 ML OUT 1730: 130 ML OUT
--- NOTE | 2017-11-30 19:15 | NUR ---
TRANSFERRED CARE TO NIGHT RN.
--- NOTE | 2017-11-30 19:30 | NUR ---
RECEIVED REPORT FROM DAY NURSE NO ACUTE DISTRESS NOTED. WILL CONTINUE TO OBSERVE
--- NOTE | 2017-11-30 19:45 | NUR ---
PT ASLEEP RESTING COMFORTABLY, ON SEDATION, CURRENTLY ON PROPOFOL @ 40 MCG. RASS-3. SINUS TACHCARDIA 100S NO EDEMA NOTED. 7.5 ET TO VENT; 20 CM @ LIP. SUCTION, MINIMAL SECRETION, CLEAR. LUNGS AUSCULTATED; BILATERAL DIMINISHED BREATH SOUNDS. ABD SOFT NON DISTENDED, OGT IN PLACE, PATENT. DELANEY CATH DRAINING CLEAR YELLOW URINE; SKIN INTACT; PERIPHERAL IVS R FOREARM, R HAND L FOREARM. R IJ DENNIS CATH FOR HD NOTED. NO ACUTE DISTRESS WILL CONTINUE TO OBSERVE.
--- NOTE | 2017-11-30 20:00 | NUR ---
DIALYSIS NURSE @ BEDSIDE, TO START HD TREATMENT
[2017-11-30 20:30] LABS: ALBUMIN 1.8 g/dL (3.4-5.0); BILIRUBIN,DIRECT 0.2 mg/dL (0.0-0.3); TOTAL BILIRUBIN 0.4 mg/dL (0.0-1.0)
[2017-11-30 20:33] LABS: CARBON DIOXIDE 21.4 mmol/L (21-32); CREATININE 4.1 mg/dL (0.6-1.3); POTASSIUM 4.4 mmol/L (3.5-5.1)
[2017-11-30] MEDS ORDERED: ALBUMIN HUMAN 25% 100 ML IV ONE (20:43)
--- NOTE | 2017-11-30 20:56 | NUR ---
ALBUMIN INFUSION ORDERED PER DR. HARE TO DIALYSIS NURSE. X1 BOTTLE TAKEN OUT OF PYS FOR HEMODIALYSIS.
[2017-11-30] MEDS: INSULIN LISPRO SLIDING SCALE 100 UNITS/ML VIAL SUBQ PRN (21:03)
[2017-11-30] MEDS: INSULIN NPH HUMAN ISOPHANE 100 UNIT/ML VIAL SUBQ SCH (21:07)
--- NOTE | 2017-11-30 22:00 | NUR ---
PT ASLEEP IN BED, COMFORTABLE, NO S/S OF ACUTE DISTRESS. <10ML RESIDUAL NOTED. WILL CONTINUE TO MONITOR
[2017-11-30] MEDS: LEVOFLOXACIN 250 MG/D5 PREMIX 50 ML IV SCH (23:55)
[2017-12-01] VITALS (97 sets, daily range): BP systolic 101–146; BP diastolic 51–82
[2017-12-01] MEDS: BLOOD GLUCOSE MONITORING 1 DEV DEV FS SCH ×6 (00:03→20:33)
[2017-12-01] MEDS: FUROSEMIDE 40 MG/4 ML VIAL IVP SCH ×4 (00:05→17:16)
[2017-12-01] MEDS: SODIUM BICARBONATE 650 MG TAB PO SCH ×3 (00:05→11:58)
[2017-12-01 00:38] LABS: ANION GAP 14.6 (8-16); CARBON DIOXIDE 29.1 mmol/L (21-32); CREATININE 2.5 mg/dL (0.6-1.3); POTASSIUM 3.7 mmol/L (3.5-5.1)
--- NOTE | 2017-12-01 02:00 | NUR ---
PT RESTING COMFORTABLY, VERSED @ 4 M/HR AND FENTANYL @ 50 MCG/HR NO S/S OF ACUTE DISTRESS NOTED. WILL CONTINUE TO OBSERVE
[2017-12-01] MEDS: ALBUTEROL SULFATE/IPRATROPIU 3 ML SOL IH SCH ×6 (03:14→23:05)
[2017-12-01] MEDS: INSULIN LISPRO SLIDING SCALE 100 UNITS/ML VIAL SUBQ PRN ×5 (03:59→20:40)
[2017-12-01 04:23] LABS: ALBUMIN 2.3 g/dL (3.4-5.0); ANION GAP 13.8 (8-16); CARBON DIOXIDE 29.1 mmol/L (21-32); CREATININE 2.5 mg/dL (0.6-1.3); MAGNESIUM 1.9 mg/dL (1.8-2.4); PHOSPHORUS 3.2 mg/dL (2.5-4.9); POTASSIUM 3.9 mmol/L (3.5-5.1); TOTAL BILIRUBIN 0.5 mg/dL (0.0-1.0)
--- NOTE | 2017-12-01 05:59 | NUR ---
BATH GIVEN. MORNING CARE DONE. NO S/S OF RESPIRATORY DISTRESS NOTED. WILL CONTINUE TO MONITOR.
[2017-12-01 06:55] LABS: HEMATOCRIT 30.2 % (36-48); HEMOGLOBIN 10.4 g/dL (12.0-16.0); MEAN CORPUSCULAR HEMOGLOBIN 28 pg (27-31); MEAN CORPUSCULAR HGB CONC 34 g/dL (33-37); MEAN CORPUSCULAR VOLUME 80.2 fL (80-94); PLATELET COUNT (AUTO) 135 K/uL (140-450); RED BLOOD CELL COUNT(AUTO) 3.77 MIL/uL (4.20-5.40); WHITE BLOOD COUNT (AUTO) 13.1 K/uL (4.8-10.8)
--- NOTE | 2017-12-01 07:07 | NUR ---
RECEIVED ON A [employer] R860 VENTILATOR PLUGGED INTO RED OUTLET TOLERATING WELL WITHOUT ADVERSE REACTIONS NOTED TO A PORTEX ENDOTRACHEAL TUBE #7.5 SECURED AT 20cm WITH AN ANCHOR FAST CUFF PRESSURE CHECKED NOTED AMBU BAG NOTED AT HOB LOC ASLEEP BREATH SOUNDS EXP WHEEZE AND RALES BILATERAL WITH GOOD CHEST RISE ENDOTRACHEAL SUCTION FOR SMALL THIN YELLOW SECRETIONS AIRWAY PATENT
--- NOTE | 2017-12-01 07:19 | NUR ---
SPOKE WITH DR HARE ABOUT PT CONDITION/ UPDATED WITH CURRENT BMP RESULTS. OUTPUT 1550 ML FOR SHIFT. STATED TO CHANGE ORDER FOR BMP TO EVERY 6 HOUR STARTING @ 1200.
--- NOTE | 2017-12-01 07:20 | NUR ---
INFORMED DR. HARE ABOUT CXR RESULT FOR HD CATH AND RECCOMENDATION FOR RETRACTION. STATED IT SHOULD BE OK FOR HD TX, AND TO LET DR. MELENDEZ KNOW ABOUT RESULTS. ENDORSED TO JERAMY GUIDRY
--- NOTE | 2017-12-01 07:25 | NUR ---
SATURATION 99% ON FIO2 OF 70% POST HHN THERAPY TITRATED FIO2 TO 60% YOUNG/RN NOTIFIED
--- NOTE | 2017-12-01 07:33 | NUR ---
REPORT GIVEN TO DAYSHIFT RN. ORDERS ENDORSED. NO ACUTE DISTRESS NOTED.
--- NOTE | 2017-12-01 07:35 | NUR ---
RECEIVED A REPORT FROM SYSTEM CONTROLLER, BECKIE GUIDRY. PATIENT IS NONRESPONSIVE AND UNABLE TO FOLLOW COMMANDS. RESPIRATION ARE EVEN AND UNLABORED. ETT TO VENT SETTING AT FiO2 60, TV 350, AC 14, PEEP 8. SINUS TACHYCARDIA ON THE MONITOR. FLACC 0 AT THIS TIME. PERIPHERAL IN LINE TO BILATERAL UPPER EXTREMITY, PATENT AND INTACT. OGT IN PLACE FOR FEEDING AND RUNNING WITH DIABETIC SOURCE AT 30ML/MIN. ON FENTANYL DRIP @50MCG/HR AND VERSED DRIP @4MG/HR AT THIS TIME. DELANEY CATHETER DRAINING CLEAR LOGAN COLOR URINE. HEMODIALYSIS CATHETER NOTED TO RIGHT IJ. SKIN WARM TO TOUCH. SAFETY PRECAUTION AND FALL PRECAUTION IMPLEMENTED. BED IN LOW POSITION, CALL LIGHT WITHIN REACH. WILL CONTINUE TO MONITOR AND FOLLOW UP ON ORDERS.
[2017-12-01] MEDS: INSULIN NPH HUMAN ISOPHANE 100 UNIT/ML VIAL SUBQ SCH ×2 (08:42→20:37)
[2017-12-01] MEDS: MIDAZOLAM MDV 50 MG in NACL 0.9% 40 ML IV PRN (08:42)
[2017-12-01] MEDS: LACTOBACILLUS RHAMNOSUS GG 1 EACH CAP PO SCH (08:44)
[2017-12-01] MEDS: POTASSIUM CHL 20 MEQ/ 1/2 NS 1,000 ML IV SCH (08:45)
[2017-12-01 08:56] LABS: LYMPHOCYTES % (MANUAL) 10 % (20-46); MONOCYTES % (MANUAL) 4 % (5-12)
--- NOTE | 2017-12-01 09:29 | NUR ---
DR. AVELAR IN TO SEE PATIENT. WILL FOLLOW UP ON ORDERS.
--- NOTE | 2017-12-01 09:30 | NUR ---
DR. HARE AND DR. MATHIS IN TO SEE PATIENT. WILL FOLLOW UP ON ORDERS.
--- NOTE | 2017-12-01 09:41 | NUR ---
CM NOTE CONCURRENT REVIEW FAXED TO [facility] [phone] ATTN: NICHOLE Mejias PH# [phone], CASE# [id number].
[2017-12-01] MEDS ORDERED: INSULIN NPH HUM/REG INSULIN HM 100 UNIT/ML 10 ML VIAL SUBQ SCH (09:42)
--- NOTE | 2017-12-01 09:51 | NUR ---
SENT PAGE TO DR. MELENDEZ. AWAITING FOR CALL BACK.
[2017-12-01 10:00] LABS: ANION GAP 9.2 (8-16); CARBON DIOXIDE 33.5 mmol/L (21-32); POTASSIUM 3.7 mmol/L (3.5-5.1)
--- NOTE | 2017-12-01 10:03 | NUR ---
CM NOTE SPOKE WITH [facility] TUFTING MACHINE FIXER BUFFY # [phone] WHO STATED THE CM IS ESTRELLITA Mejias WHO IS CURRENTLY ON THE OTHER LINE AT THE MOMENT AND CANNOT TAKE MY CALL. I INFORMED BUFFY THAT THE LATEST CONCURRENT REVIEW HAS BEEN FAXED TO [facility] AND THAT PATIENT IS STILL ICU LEVEL OF CARE CURRENTLY ON ETT TO VENT FiO2 60 ON VERSED AND FENTANYL DRIPS AND ON 2 IV ANTIBIOTICS. BUFFY STATED THAT HE WILL INFORM NICHOLE Cantu. I ALSO GAVE BUFFY MY CONTACT NUMBER, THE NUMBER TO THE NURSING STATION WHERE PATIENT IS AND THE NUMBER OF THE ATTENDING PHYSICIAN.
--- NOTE | 2017-12-01 10:20 | NUR ---
RESTING COMFORTABLY BREATH SOUNDS CLEAR BILATERAL WITH GOOD CHEST RISE AND AERATION THROUGHOUT SATURATION 100% ON FIO2 OF 60% TITRATED FIO2 TO 50% YOUNG/RN NOTIFIED
--- NOTE | 2017-12-01 10:28 | NUR ---
NICHOLE LUCIO SPOKE WITH SAPELLO NICHOLE Mejias PH# [phone] WHO REITERATED WHAT HE TOLD [facility] GUIDRY THAT THEY CANNOT TRANSFER PATIENT UNTIL FiO2 IS AT LEAST 50%. NICHOLE Mejias ALSO STATED THAT PATIENT'S HOSPITAL STAY IS AUTHORIZED UNTIL TOMORROW AND WILL CHECK AGAIN TOMORROW IF PATIENT WILL BE STABLE FOR TRANSFER.
--- NOTE | 2017-12-01 10:30 | NUR ---
PAGED DR. MELENDEZ AGAIN BY CHARGE NURSE, JORGE TO VERIFY THE RT IJ DIALYSIS CATHETER PLACEMENT BASED ON CXR RESULT FROM YESTERDAY HOWEVER EMERGENCY ROOM PHYSICIAN ASSISTANT(GLORY HOLE TENDER) STATED THAT DR. MELENDEZ IS ON SURGERY AT THIS TIME AND LEFT MASSAGE TO CALL ME BACK.
--- NOTE | 2017-12-01 11:00 | NUR ---
ECHOCARDIOGRAM WAS DONE AT BEDSIDE.
--- NOTE | 2017-12-01 11:20 | NUR ---
NO DISTRESS NOTED BREATH SOUNDS INSP RALES BILATERAL WITH GOOD CHEST RISE NO SUCTIONING AT THIS TIME SATURATION 87% ON FIO2 OF 50% POST HHN THERAPY INCREASED FIO2 TO 60% YOUNG/RN NOTIFIED
--- NOTE | 2017-12-01 12:10 | NUR ---
GASTRIC RESIDUAL NOTED WITH 170ML AND HOLD FEEDING ORDERED AT THIS TIME. WILL CONTINUE TO MONITOR AND FOLLOW UP ON ORDERS.
--- NOTE | 2017-12-01 12:40 | NUR ---
DR. GUNDERSON CAME IN TO SEE PATIENT AND WILL FOLLOW UP ON ORDERS.
[2017-12-01] MEDS ORDERED: NACL 0.9% 1,000 ML IV SCH (12:50)
--- NOTE | 2017-12-01 13:00 | NUR ---
DR. MELENDEZ CALLED BACK AND SPOKE TO CHARGE NURSE, MARY BETH REGARDING CXR RESULT FOR HEMODIALYSIS PLACEMENT. DR. MELENDEZ STATED THAT IT IS OKAY TO USE THE RIGHT IJ HEMODIALYSIS CATHETER AND DR. HARE WAS INFORMED. NO HEMODIALYSIS NEEDED FOR TODAY PER DR. HARE. WILL CONTINUE TO MONITOR AND FOLLOW UP ON ORDERS.
--- NOTE | 2017-12-01 13:14 | NUR ---
GASTRIC RESIDUAL RECHECK AND 180ML NOTED. NOTIFIED TO Marco GALLARDO AND CONTINUE ON HOLD FEEDING UNTIL FURTHER ORDER AT THIS TIME. WILL FOLLOW UP ON ORDERS.
[2017-12-01 13:20] LABS: ANION GAP 11.4 (8-16); CARBON DIOXIDE 32.8 mmol/L (21-32); CREATININE 3.3 mg/dL (0.6-1.3); POTASSIUM 3.2 mmol/L (3.5-5.1)
--- NOTE | 2017-12-01 14:28 | NUR ---
KUB X-RAY DONE AND RECHECKED GASTRIC RESIDUAL 150 ML NOTED. PAGED Marco GALLARDO AND WAITING FOR CALL BACK.
--- NOTE | 2017-12-01 15:00 | NUR ---
PAGED DR. GUNDERSON AGAIN AND WAITING FOR CALL BACK.
--- NOTE | 2017-12-01 15:14 | NUR ---
DR. GUNDERSON CALLED AND WAS INFORMED OF KUB RESULT AND GASTRIC RESIDUAL AMOUNT. DR. GUNDEROSN STATED THAT START REGLAN IVP AND CONTINUE ON HOLD FEEDING UNTIL RESIDUAL LESS THAN 100. WILL FOLLOW UP ON ORDERS.
[2017-12-01] MEDS ORDERED: POTASSIUM CHLORIDE 20% 40 MEQ/15 ML UDC GT SCH (15:34)
--- NOTE | 2017-12-01 15:51 | NUR ---
RESIDUAL NOTED WITH 80ML. WILL CONTINUE TO MONITOR.
--- NOTE | 2017-12-01 16:35 | NUR ---
GASTRIC RESIDUAL CHECKED AND 110ML NOTED. CONTINUE ON HOLD FEEDING AT THIS TIME.
[2017-12-01] MEDS: METOCLOPRAMIDE 10 MG/2 ML INJ VIAL IVP SCH (17:16)
[2017-12-01 17:29] LABS: ANION GAP 10.2 (8-16); CARBON DIOXIDE 33.7 mmol/L (21-32); CREATININE 3.6 mg/dL (0.6-1.3); POTASSIUM 3.9 mmol/L (3.5-5.1)
--- NOTE | 2017-12-01 17:55 | NUR ---
GASTRIC RESIDUAL NOTED 50ML AND RESUME TUBE FEEDING AT 30ML/H. WILL FOLLOW UP ON ORDERS.
--- NOTE | 2017-12-01 18:00 | NUR ---
PATIENT'S FAMILY(KIMMY) AT BEDSIDE. CHARLIE(BROTHER) CALLED AND GIVEN AN UPDATED OF PATIENT'S CONDITION.
--- NOTE | 2017-12-01 18:12 | NUR ---
DR. CACERES IN TO SEE PATIENT AND GIVEN AN UPDATED OF PATIENT'S CONDITION TO PATIENT'S FAMILY(KIMMY). WILL FOLLOW UP ON ORDERS.
--- NOTE | 2017-12-01 18:15 | NUR ---
HOLD VERSED AND FENTANYL DRIP PER DR. CACERES AT THIS TIME FOR SEDATION VACATION AND DR. CACERES STATED THAT APPLY BILATERAL WRIST SOFT RESTRAINT, JUST IN CASE. WILL FOLLOW UP ON ORDERS.
--- NOTE | 2017-12-01 19:20 | NUR ---
REPORT GIVEN TO MODULAR SET CREW MEMBER RN AT BEDSIDE. PATIENT IS STABLE.
--- NOTE | 2017-12-01 19:30 | NUR ---
RECEIVED REPORT FROM MORNING RN FOR CONTINUITY OF CARE. VS STABLE AT THIS TIME. PT AFEBRILE. PT CURRENTLY ON SEDATION VACATION. ETT TO VENT WITH SETTINGS: AC14, FIO2 60%, TV 350, AND PEEP 8. LUNG SOUNDS CLEAR AND DIMINISHED. NO RESPIRATORY DISTRESS NOTED. S1+S2 HEARD. PULSES PALPABLE IN ALL EXTREMITIES. SINUS TACHYCARDIA ON MONITOR. OGT TO FEEDING. PLACEMENT CHECKED. PT HAS RESIDUAL 10ML. ABDOMEN ROUND, SOFT AND NONDISTENDED. BOWEL SOUNDS ACTIVE IN ALL QUADRANTS. DELANEY CATHETER IN PLACE. DRAINING CLEAR AND YELLOW URINE. PT HAS PERIPHERAL IV ACCESS: RIGHT HAND 22G, 2 IN RIGHT FOREARM 20G,A ND LEFT FOREARM 22G. ALL ARE ASYMPTOMATIC, PATENT AND INTACT. PT HAS RIGHT IJ DENNIS CATH. SCD IN PLACE. CALL LIGHT WITHIN REACH. BED AT LOW POSSIBLE POSITION. ALL SAFETY PRECAUTIONS ARE IN PLACE. RECEIVED PT ON RESTRAINTS PER PRECAUTION SINCE PT IS ON SEDATION VACATION. WILL CONTINUE TO MONITOR PT.
--- NOTE | 2017-12-01 19:50 | NUR ---
DR. MELENDEZ AT BEDSIDE TO SEE PT. WILL FOLLOW-UP WITH ANY NEW ORDER.
[2017-12-01 20:39] LABS: ANION GAP 13.5 (8-16); CARBON DIOXIDE 30.1 mmol/L (21-32); CREATININE 3.9 mg/dL (0.6-1.3); POTASSIUM 4.6 mmol/L (3.5-5.1)
--- NOTE | 2017-12-01 22:15 | NUR ---
PT STARTING TO WAKE UP. PT BITTING ON ETT AND FIGHTING THE VENT. RESPIRATION RATE INCREASING AND OXYGEN SATURATION SLOWLY GOING DOWN. RESTARTED PT ON VERSED AND FENTANYL DRIP.
--- NOTE | 2017-12-01 23:00 | NUR ---
DELANEY CATHETER REPLACED PER ORDER FROM DR. ONEIL. URINE SPECIMEN SENT TO LAB.
[2017-12-02] VITALS (90 sets, daily range): BP systolic 108–144; BP diastolic 8–81
[2017-12-02 00:27] LABS: ANION GAP 9.9 (8-16); CARBON DIOXIDE 33.4 mmol/L (21-32); POTASSIUM 4.3 mmol/L (3.5-5.1)
[2017-12-02] MEDS: FUROSEMIDE 40 MG/4 ML VIAL IVP SCH ×3 (00:27→12:22)
[2017-12-02] MEDS: METOCLOPRAMIDE 10 MG/2 ML INJ VIAL IVP SCH ×4 (00:28→17:40)
[2017-12-02 00:39] LABS: CREATININE 4.2 mg/dL (0.6-1.3)
[2017-12-02] MEDS: BLOOD GLUCOSE MONITORING 1 DEV DEV FS SCH ×6 (00:58→20:32)
[2017-12-02] MEDS: INSULIN LISPRO SLIDING SCALE 100 UNITS/ML VIAL SUBQ PRN ×5 (00:59→16:55)
[2017-12-02 01:09] LABS: APPEARANCE,URINE CLEAR (CLEAR); BILIRUBIN,URINE NEGATIVE (NEGATIVE); BLOOD, URINE 3+ (NEGATIVE); COLOR,URINE YELLOW (YELLOW); LEUKOCYTE ESTERASE ,URINE TRACE (NEGATIVE); NITRITE, URINE NEGATIVE (NEGATIVE); PH,URINE 5.5 (5.0-9.0); UGLUCOSE 1+ (NEGATIVE)
--- NOTE | 2017-12-02 01:37 | NUR ---
SINUS TACHYCARDIA ON MONITOR. VS STABLE AT THIS TIME. FLACC 0. PT STILL ON VERSED AND FENTANYL DRIP. FIO2 LOWERED BY RT TO 55% PREVIOUSLY. CALL LIGHT WITHIN REACH. ALL SAFETY PRECAUTIONS ARE IN PLACE. WILL CONTINUE TO MONITOR PT.
[2017-12-02 03:09] LABS: RBC,URINE TOO NUMEROUS TO COUN /HPF (0-5); YEAST,URINE Many /HPF (None Seen)
[2017-12-02] MEDS: ALBUTEROL SULFATE/IPRATROPIU 3 ML SOL IH SCH ×6 (03:38→23:04)
[2017-12-02 04:12] LABS: HEMATOCRIT 27.7 % (36-48); HEMOGLOBIN 9.4 g/dL (12.0-16.0); MEAN CORPUSCULAR HEMOGLOBIN 27 pg (27-31); MEAN CORPUSCULAR HGB CONC 34 g/dL (33-37); MEAN CORPUSCULAR VOLUME 79.3 fL (80-94); PLATELET COUNT (AUTO) 145 K/uL (140-450); RED BLOOD CELL COUNT(AUTO) 3.49 MIL/uL (4.20-5.40); RED CELL DISTRIBUTION WIDTH 13.9 % (11.6-13.7)
--- NOTE | 2017-12-02 04:20 | NUR ---
VS STABLE AT THIS TIME. CURRENTLY NO CHANGE IN CONDITION. PT STILL ON VERSED AND FENTANYL DRIP. WILL CONTINUE TO MONITOR PT.
[2017-12-02 04:26] LABS: ALBUMIN 2.2 g/dL (3.4-5.0); ANION GAP 10.9 (8-16); CARBON DIOXIDE 34.2 mmol/L (21-32); MAGNESIUM 2.5 mg/dL (1.8-2.4); PHOSPHORUS 4.6 mg/dL (2.5-4.9); POTASSIUM 4.1 mmol/L (3.5-5.1); TOTAL BILIRUBIN 0.5 mg/dL (0.0-1.0)
[2017-12-02 04:39] LABS: CREATININE 4.4 mg/dL (0.6-1.3)
[2017-12-02] MEDS: MIDAZOLAM MDV 50 MG in NACL 0.9% 40 ML IV PRN (05:13)
[2017-12-02 06:19] LABS: HEPATITIS A ANTIBODY IGM Negative (Negative); HEPATITIS B CORE AB TOTAL Negative (Negative); HEPATITIS B SURFACE ANTIBODY Non Reactive (.); HEPATITIS B SURFACE ANTIGEN Negative (Negative)
[2017-12-02 07:02] LABS: EOSINOPHILS % (MANUAL) 2 % (0-4); LYMPHOCYTES % (MANUAL) 16 % (20-46); MONOCYTES % (MANUAL) 7 % (5-12)
--- NOTE | 2017-12-02 07:21 | NUR ---
REPORT GIVEN TO ROCIO, RN FOR CONTINUITY OF CARE. PT STABLE AT THIS TIME.
--- NOTE | 2017-12-02 07:22 | NUR ---
RECEIVED BEDSIDE REPORT FROM FLUID JET CUTTER OPERATOR RN, ARUNA, FOR CONTINUITY OF CARE. SKIN IS INTACT, WARM AND DRY. PATIENT HAS RIGHT IJ DENNIS CATHETER, PERIPHERAL SITES TO THE RIGHT HAND, TWO RIGHT FOREARMS, AND LEFT HAND. PATIENT IS SEDATED, UNABLE TO MAKE NEEDS KNOWN, UNABLE TO FOLLOW SIMPLE COMMANDS. PATIENT HAS FENTANYL RUNNING AT 50 MCG/HR, AND VERSED AT 3ML/HR. SHE HAS ETT TO VENT FIO2 55, TV 350, RATE 14, PEEP 8. RESPIRATIONS ARE UNLABORED AND EVEN. ST ON MONITOR. PATIENT HAS AN OGT TO TUBE FEEDING, DIABETICSOURCE AT 30ML/HR WITH 50ML H2O FLUSH Q4H. PATIENT HAD DELANEY REPLACED YESTERDAY PER FLUID JET CUTTER OPERATOR RN. HOB IS 30 DEGREES IN LOWEST POSITION, CALL LIGHT WITHIN REACH, NO SIGNS OF DISTRESS NOTED. WILL CONTINUE TO MONITOR.
--- NOTE | 2017-12-02 07:27 | NUR ---
RECEIVED CALL FROM DR. HARE, UPDATED ON PATIENT'S CONDITION AND LABS. NO ORDERS FOR DIALYSIS RECEIVED AT THIS TIME.
--- NOTE | 2017-12-02 08:02 | NUR ---
RECEIVED ON A [employer] R860 VENTILATOR PLUGGED INTO RED OUTLET TOLERATING WELL WITHOUT ADVERSE REACTIONS NOTED TO AN PORTEX ENDOTRACHEAL #7.5 SECURED AT 20cm WITH AN ANCHOR FAST CUFF PRESSURE CHECKED NOTED SEDATED RESTING COMFORTABLY NO PULMONARY DISTRESS NOTED GOOD CHEST RISE AIRWAY PATENT
--- NOTE | 2017-12-02 08:15 | NUR ---
DR. HARE IN TO SEE AND EXAMINE PATIENT. UPDATED ON PATIENT'S CONDITION. WILL FOLLOW UP WITH ANY ORDERS.
[2017-12-02] MEDS: INSULIN NPH HUMAN ISOPHANE 100 UNIT/ML VIAL SUBQ SCH ×2 (09:00→20:35)
[2017-12-02] MEDS: LACTOBACILLUS RHAMNOSUS GG 1 EACH CAP PO SCH (09:02)
[2017-12-02 09:16] LABS: ANION GAP 11.8 (8-16); CARBON DIOXIDE 33.4 mmol/L (21-32); POTASSIUM 4.2 mmol/L (3.5-5.1)
--- NOTE | 2017-12-02 09:19 | NUR ---
CM NOTE CONCURRENT REVIEW FAXED TO [facility] [phone] # [phone]
[2017-12-02 09:28] LABS: CREATININE 4.6 mg/dL (0.6-1.3)
--- NOTE | 2017-12-02 10:19 | NUR ---
RT AT BEDSIDE, PATIENT PRESENTS NO SIGNS OF ACUTE DISTRESS AT THIS TIME
--- NOTE | 2017-12-02 10:22 | NUR ---
CM NOTE I GAVE REGGIE VARELA JESSICA # [phone] A VERBAL CLINICAL UPDATE ON THE PATIENT. PER JESSICA SHE IS THE PATIENT'S DOWNEY ELECTRICAL REPAIRER FOR TODAY AND THAT SINCE PATIENT'S FiO2 IS STILL 55% THEY CANNOT TRANSFER PATIENT AT THIS TIME. REGGIE LOPEZ ALSO STATED THAT SHE WILL AUTHORIZE TODAY'S HOSPITAL STAY IN OUR [facility]. I GAVE JESSICA THE NUMBER TO THE NURSING STATION AND THE ATTENDING PHYSICIAN'S CONTACT NUMBER.
--- NOTE | 2017-12-02 10:43 | NUR ---
NO APPARENT RESPIRATORY DISTRESS NOTED AT THIS TIME BREATH SOUNDS CLEAR LEFT SIDE TO INSP RALES RIGHT SIDE GOOD CHEST RISE NO SUCTION AT THIS TIME PASSENGER FLAGMAN TO MONITOR
[2017-12-02 13:03] LABS: ANION GAP 9.8 (8-16); POTASSIUM 3.8 mmol/L (3.5-5.1)
[2017-12-02 13:11] LABS: CREATININE 4.8 mg/dL (0.6-1.3)
--- NOTE | 2017-12-02 14:09 | NUR ---
SEDATED RESTING WELL GOOD CHEST RISE SATURATION 100% ON FIO2 OF 55% TITRATED FIO2 TO 45% EIRENE/RN NOTIFIED
--- NOTE | 2017-12-02 14:16 | NUR ---
SEDATION VACATION STARTED AT THIS TIME LEAN MANUFACTURING SPECIALIST TO MONITOR
--- NOTE | 2017-12-02 14:35 | NUR ---
12/02/17 RD FOLLOW UP COMPLETED PLEASE REFER TO NUTRITION PROGRESS NOTE UNDER CARE ACTIVITY FOR ESTIMATED NUTRITION NEEDS. RD RECOMMENDATIONS: 1. INCREASE NUTRITION SUPPORT DIABETESOURCE 10 ML Q12H TO GOAL RATE 55 ML/HR TOLERATED -AT GOAL THIS WILL PROVIDE 100% OF PATIENTS ESTIMATED NEEDS 2. RD WILL F/U 2-3 DAYS; HIGH RISK. JAROD MALONE, RD
--- NOTE | 2017-12-02 14:40 | NUR ---
UNABLE TO WAKE PATIENT TO FULLY PARTICIPATE IN WEANING TRIAL
--- NOTE | 2017-12-02 14:50 | NUR ---
SPOKE WITH REGARDING DIALYSIS FOR PATIENT, AWARE OF LABS AND OUTPUT. STATES NO HEMODIALYSIS FOR TODAY, POSSIBLY TOMORROW. ORDERS RECEIVED AND WILL BE CARRIED OUT.
--- NOTE | 2017-12-02 15:26 | NUR ---
ORAL CARE GIVEN, PATIENT TURNED AND REPOSITIONED, NO SIGNS OF DISTRESS NOTED. CALL LIGHT WITHIN REACH. WILL CONTINUE TO MONITOR
--- NOTE | 2017-12-02 15:46 | NUR ---
REMAINS OFF SEDATION UNABLE TO AROUSE PATIENT AT THIS TIME BREATH SOUNDS CLEAR LEFT SIDE RUL RML TO DIMINISHED RLL GOOD CHEST RISE AIRWAY PATENT
--- NOTE | 2017-12-02 15:47 | NUR ---
SATURATION 100% ON FIO2 OF 45% TITRATED FIO2 TO 35% EIRENE/RN NOTIFIED
[2017-12-02 16:59] LABS: ANION GAP 10.7 (8-16); CARBON DIOXIDE 35.9 mmol/L (21-32); POTASSIUM 3.6 mmol/L (3.5-5.1)
[2017-12-02 17:10] LABS: CREATININE 4.9 mg/dL (0.6-1.3)
--- NOTE | 2017-12-02 17:10 | NUR ---
REMAINS OFF SEDATION SLIGHTLY AROUSABLE AT THIS TIME UNABLE TO FULLY PARTICIPATE IN WEANING PARAMETERS BREATH SOUNDS CLEAR BILATERAL GOOD CHEST RISE AND AERATION THROUGH PULMONARY GUY AIRWAY PATENT
--- NOTE | 2017-12-02 18:36 | NUR ---
FAMILY AT BEDSIDE, UPDATED ON PATIENT'S CONDITION. DAUGHTER IS LOOKING FOR A NOTE FOR PATIENT'S WORK, FROM STATING THAT PATIENT IS IN ICU. DAUGHTER IS AWARE THAT SHE SHOULD SPEAK WITH A DUAL HOSE CEMENTER HOWEVER THE DUAL HOSE CEMENTER ALREADY LEFT HOME. DAUGHTER WILL COME BACK TOMORROW MORNING TO SPEAK WITH DUAL HOSE CEMENTER.
--- NOTE | 2017-12-02 19:16 | NUR ---
ENDORSED CONTINUITY OF CARE TO DISTRIBUTION TRANSFORMER ASSEMBLER CHAO VALDOVINOS, PATIENT PRESENT NO SIGNS OF DISTRESS AT THIS TIME.
--- NOTE | 2017-12-02 19:19 | NUR ---
RECEIVED PT STABLE ON VENT SUPPORT AT DOCUMENTED SETTINGS, SUCTIONED SMALL AMOUNTS OF CLEAR YELLOW THIN SECRETIONS, HHN TX GIVEN, TOLERATED WELL, NO RESP DISTRESS OR SOB NOTED AT THIS TIME, 7.5 ETT SECURED AT 20 CM AT THE TEETH/GUM, ALARMS SET AND AUDIBLE, AMBU BAG AT BEDSIDE, VENT PLUGGED INTO RED OUTLET, PULSE OX ON, WILL CONT TO MONITOR.
--- NOTE | 2017-12-02 19:25 | NUR ---
RECEIVED REPORT FROM MORNING RN FOR CONTINUITY OF CARE. VS STABLE AT THIS TIME. PT AFEBRILE AND DOES NOT APPEAR TO BE IN ANY DISTRESS. PT LETHARGIC. CURRENTLY ON SEDATION VACATION. PERRL. ETT TO VENT WITH SETTINGS FIO2 35%, TV 350, RATE 14, AND PEEP 8. DOES NOT APPEAR TO BE IN ANY SIGNS OF DISTRESS. S1+S2 HEARD. PULSES ARE PALPABLE. SINUS TACHYCARDIA ON MONITOR. OGT TO FEEDING. PLACEMENT CHECKED. DIABETISOURCE RUNNING AT 40ML/HR WITH NO RESIDUAL NOTED. OGT SECURED IN PLACE. ABDOMEN ROUND, SOFT AND NON-DISTENDED. SCD IN PLACE. PT HAS RIGHT IJ DENNIS CATH. PT HAS PERIPHERAL IV ACCESS RIGHT HAND 22G, LEFT WRIST 22G, AND TWO RIGHT FOREARM 20G. ALL LINES ARE PATENT, INTACT, AND ASYMPTOMATIC. BED AT LOW POSSIBLE POSITION. CALL LIGHT WITHIN REACH. ALL SAFETY PRECAUTIONS ARE IN PLACE. WILL CONTINUE TO MONITOR.
--- NOTE | 2017-12-02 20:40 | NUR ---
DR. ONEIL AT BEDSIDE TO SEE PT. WILL FOLLOW-UP WITH ANY NEW ORDERS.
[2017-12-02 20:43] LABS: ANION GAP 10.1 (8-16); CARBON DIOXIDE 37.4 mmol/L (21-32); CREATININE 4.9 mg/dL (0.6-1.3); POTASSIUM 3.5 mmol/L (3.5-5.1)
[2017-12-02] MEDS ORDERED: FUROSEMIDE 40 MG/4 ML VIAL IVP SCH (21:00)
--- NOTE | 2017-12-02 21:45 | NUR ---
DR. CACERES AT BEDSIDE TO SEE PT. WILL FOLLOW-UP WITH ANY NEW ORDER.
[2017-12-02] MEDS: LEVOFLOXACIN 250 MG/D5 PREMIX 50 ML IV SCH (22:09)
[2017-12-03] VITALS (24 sets, daily range): BP systolic 102–141; BP diastolic 58–92
[2017-12-03 00:20] LABS: ANION GAP 8.7 (8-16); CARBON DIOXIDE 37.9 mmol/L (21-32); POTASSIUM 3.6 mmol/L (3.5-5.1)
--- NOTE | 2017-12-03 00:30 | NUR ---
NEW FEEDING BAG HANGED AND RUNNING AT 40ML/HR. PT TOLERATING FEEDING WELL. SCHEDULED MEDICATIONS ADMINISTERED. VS STABLE AT THIS TIME. NO CHANGE IN CONDITION. SINUS TACHYCARDIA ON MONITOR. ALL SAFETY PRECAUTIONS ARE IN PLACE. WILL CONTINUE TO MONITOR PT.
[2017-12-03] MEDS: METOCLOPRAMIDE 10 MG/2 ML INJ VIAL IVP SCH ×4 (00:33→18:07)
[2017-12-03] MEDS: BLOOD GLUCOSE MONITORING 1 DEV DEV FS SCH ×6 (00:36→20:34)
--- NOTE | 2017-12-03 01:08 | NUR ---
FEEDING RESIDUAL CHECKED AND ASPIRATED 10ML. FEEDING RATE INCREASED TO 50ML/HR PER RECOMMENDATION OF RD. WILL CONTINUE TO MONITOR FOR RESIDUAL. NO CHANGE IN CONDITION AT THIS TIME.
[2017-12-03] MEDS: ALBUTEROL SULFATE/IPRATROPIU 3 ML SOL IH SCH ×6 (03:10→23:11)
--- NOTE | 2017-12-03 04:15 | NUR ---
MORNING CARE PROVIDED TO PT. TOLERATED BEING TURNED AND REPOSITIONED WELL. ORAL CARE PROVIDED AND OGT SECURED IN PLACE. ALL SAFETY PRECAUTIONS ARE IN PLACE. WILL CONTINUE TO MONITOR PT.
[2017-12-03 06:17] LABS: BASOPHILS # (AUTO) 0.1 K/uL (0.00-0.22); BASOPHILS % (AUTO) 0.9 % (0.0-2.0); EOSINOPHILS # (AUTO) 0.3 K/uL (0-0.4); EOSINOPHILS % (AUTO) 2.6 % (0.0-4.0); HEMATOCRIT 30.1 % (36-48); HEMOGLOBIN 9.8 g/dL (12.0-16.0); LYMPHOCYTES # (AUTO) 1.4 K/uL (2.5-16.5); LYMPHOCYTES % (AUTO) 13.9 % (20.5-51.1); MEAN CORPUSCULAR HEMOGLOBIN 27 pg (27-31); MEAN CORPUSCULAR HGB CONC 33 g/dL (33-37); MONOCYTES % (AUTO) 9.8 % (1.7-9.3); NEUTROPHILS % (AUTO) 72.8 % (42.2-75.2); PLATELET COUNT (AUTO) 154 K/uL (140-450); RED BLOOD CELL COUNT(AUTO) 3.72 MIL/uL (4.20-5.40); RED CELL DISTRIBUTION WIDTH 13.1 % (11.6-13.7); WHITE BLOOD COUNT (AUTO) 9.8 K/uL (4.8-10.8)
--- NOTE | 2017-12-03 06:27 | NUR ---
RECEIVED CALL FROM DR. HARE. ASKED FOR UPDATE IN PT'S LABS. RECEIVED NEW ORDERS.
--- NOTE | 2017-12-03 06:31 | NUR ---
CALLED ISABEL MERCADO TO INFORM THAT MD ORDERED DIALYSIS FOR PT. WILL ENDORSE TO NEXT SHIFT
--- NOTE | 2017-12-03 07:19 | NUR ---
RECEIVED INTUBATED PT WITH A 7.5 ETT SECURED @20 TEETH/GUMS ON VENT. SETTINGS AC 14, VT 350, PEEP 8 AND FIO2 35%. PT SUCTIONED OBTAINED SMALL AMOUNT OF THIN WHITE/CLEAR SECRETIONS, AIRWAY IS PATENT AND ETT IS SECURE. VENT IS PLUGGED INTO A RED OUTLET WITH ALARMS ON AND FUNCTIONING. AMBU BAG IS PRESENT AT BEDSIDE. PT IS NOT SOB AND NOT IN RESPIRATORY DISTRESS AT THIS TIME.
--- NOTE | 2017-12-03 07:30 | NUR ---
REPORT GIVEN TO MORNING RN FOR CONTINUITY OF CARE. PT IN STABLE CONDITION AT THIS TIME.
--- NOTE | 2017-12-03 07:30 | NUR ---
PT RESTING IN BED. OPENS EYES UPON CALLING, DOESNOT VERBALIZE. PUPILS REACTIVE TO LIGHT. SKIN DRY AND WARM TO TOUCH. LUNGS CLEAR ON AUSCULTATION. PT ON ETT TO VENT AC 14 FIO2 35% TV [address]EEP [address]. OGTUBE IN PLACE. POSITIVE PLACEMENT. DIABETISOURCE RUNNING AT 50 ML/HR. RESIDUAL 0. RIGHT IJ DENNIS FOR DIALYSIS, DRESSING INTACT. PERIPHERAL LINES ON RIGHT HAND 22G, RIGHT FOREARM 20G X2, LEFT WRIST 22G. IV LINES INTACT. ABDOMEN SOFT ROUND AND NON-TENDER. ACTIVE BOWEL SOUND. DELANEY'S CATH IN PLACE DRAINING CLEAR YELLOW URINE VIA GRAVITY. KEPT HOB ELEVATED. BED IN LOW POSITION LOCKED. WILL CONTINUE TO MONITOR.
[2017-12-03] MEDS: INSULIN LISPRO SLIDING SCALE 100 UNITS/ML VIAL SUBQ PRN ×4 (08:10→20:42)
[2017-12-03] MEDS: FUROSEMIDE 40 MG/4 ML VIAL IVP SCH (08:19)
[2017-12-03] MEDS: LACTOBACILLUS RHAMNOSUS GG 1 EACH CAP PO SCH (08:19)
[2017-12-03 08:50] LABS: ANION GAP 9.9 (8-16); POTASSIUM 3.9 mmol/L (3.5-5.1)
[2017-12-03 08:59] LABS: CREATININE 5.3 mg/dL (0.6-1.3)
[2017-12-03] MEDS: INSULIN NPH HUMAN ISOPHANE 100 UNIT/ML VIAL SUBQ SCH ×2 (09:19→20:41)
--- NOTE | 2017-12-03 09:40 | NUR ---
PT SUCTIONED OBTAINED SMALL AMOUNT OF THIN CLEAR SECRETIONS. THERE IS NO BITING OR KINKING OF ETT AT THIS TIME. POSITIVE GAG REFLEX, PT OCCASIONALLY WILL OPEN EYES UNABLE TO FOLLOW COMMANDS AT THIS TIME. WILL CONTINUE TO MONITOR.
--- NOTE | 2017-12-03 09:45 | NUR ---
FAXED CONCURRENT REVIEW TO [facility] [phone] PHONE [phone], JESSICA VARELA SPOKE WITH NICHOLE LOPEZ AND SHE WANTED TO KNOW IF THIS PATIENT IS STABLE FOR TRANSFER TO [facility]. IF THE PATIENT HAS HD TODAY, NEEDS TO WAIT AT LEAST 3 HOURS BEFORE TRANSFER, IF TRANSFER ORDERED.
--- NOTE | 2017-12-03 09:45 | NUR ---
PT EVALUATED BY RT.
--- NOTE | 2017-12-03 09:45 | NUR ---
NO ACUTE RESPIRATORY DISTRESS NOTED. NO CHANGE IN LOC. WILL CONTINUE TO MONITOR.
[2017-12-03 09:51] LABS: ALBUMIN 2.2 g/dL (3.4-5.0); ANION GAP 11.2 (8-16); CARBON DIOXIDE 36.6 mmol/L (21-32); MAGNESIUM 2.9 mg/dL (1.8-2.4); PHOSPHORUS 4.7 mg/dL (2.5-4.9); POTASSIUM 3.8 mmol/L (3.5-5.1); TOTAL BILIRUBIN 0.4 mg/dL (0.0-1.0)
[2017-12-03 10:00] LABS: CREATININE 5.1 mg/dL (0.6-1.3)
--- NOTE | 2017-12-03 11:06 | NUR ---
RT at bedside.
--- NOTE | 2017-12-03 12:00 | NUR ---
DIALYSIS STARTED NURSE AT BEDSIDE.
--- NOTE | 2017-12-03 12:10 | NUR ---
TEMPERATURE 100.6. EXCESS CLOTHES REMOVED. DIALYSIS NURSE MADE AWARE.
--- NOTE | 2017-12-03 12:25 | NUR ---
SEEN BY DR. HARE. NOTIFIED THAT PT HAS FEVER 100.6 DEGREE F.
--- NOTE | 2017-12-03 12:43 | NUR ---
Called Dr. Tompkins, notified about pt. elevated body temperature 100.6.
--- NOTE | 2017-12-03 12:48 | NUR ---
Called Dr. Millard made aware about fever. will follow up on order.
--- NOTE | 2017-12-03 13:01 | NUR ---
SPOKE WITH UPDATED PHYSICIAN ON PT STATUS AND VENT SETTINGS. PHYSICIAN REQUESTS PEEP TO BE TITRATED TO 5 cmh20 AND MONITOR SPO2. WILL CONTINUE TO MONITOR. PT RECEIVING DIALYSIS AT THIS TIME AND IS NOT SOB/RESPIRATORY DISTRESS.
[2017-12-03] MEDS ORDERED: VANCOMYCIN PER PHARMACY MC PRN (13:05)
[2017-12-03 13:07] LABS: CARBON DIOXIDE 32.4 mmol/L (21-32)
[2017-12-03 13:08] LABS: ANION GAP 9.5 (8-16); CREATININE 3.1 mg/dL (0.6-1.3)
[2017-12-03 13:44] LABS: POTASSIUM 2.9 mmol/L (3.5-5.1)
--- NOTE | 2017-12-03 14:03 | NUR ---
BODY TEMPERATURE REDUCED TO 97.2 DEGREE F.
--- NOTE | 2017-12-03 14:30 | NUR ---
DIALYSIS COMPLETED. NO ACUTE RESPIRATORY DISTRESS NOTED. HR 106, RR 28 SPO2 98 % BP 132/73. DIALYSIS NURSE AT BEDSIDE.
--- NOTE | 2017-12-03 15:17 | NUR ---
AT 1343 RECEIVED CALL FROM LAB. POTASSIUM 2.9. CALLED DOCTOR PAYAM, CHANGED POTASSIUM BATH 4K ON DIALYSIS.
[2017-12-03 16:56] LABS: ANION GAP 11.3 (8-16); CARBON DIOXIDE 30.3 mmol/L (21-32); CREATININE 2.8 mg/dL (0.6-1.3); POTASSIUM 3.6 mmol/L (3.5-5.1)
[2017-12-03 17:07] LABS: BILIRUBIN,URINE NEGATIVE (NEGATIVE); BLOOD, URINE 3+ (NEGATIVE); LEUKOCYTE ESTERASE ,URINE TRACE (NEGATIVE); NITRITE, URINE NEGATIVE (NEGATIVE); PH,URINE 6.5 (5.0-9.0); UGLUCOSE NEGATIVE (NEGATIVE)
[2017-12-03 17:12] LABS: COLOR,URINE YELLOW (YELLOW)
[2017-12-03 17:18] LABS: APPEARANCE,URINE CLOUDY (CLEAR)
--- NOTE | 2017-12-03 17:26 | NUR ---
PT REMAINS ON DOCUMENTED VENT SETTINGS. PT NOT DEMONSTRATING ANY SIGNS/SYMPTOMS OF RESPIRATORY DISTRESS AT THIS TIME. VENT ALARMS REMAIN ON AND FUNCTIONING. ETT REMAINS SECURE WITH A PATENT AIRWAY.
[2017-12-03 17:27] LABS: RBC,URINE TOO NUMEROUS TO COUN /HPF (0-5); WBC,URINE 6-15 (FEW) /HPF (0-5)
[2017-12-03 17:28] LABS: YEAST,URINE Many /HPF (None Seen)
--- NOTE | 2017-12-03 17:31 | NUR ---
RT AT BEDSIDE.
--- NOTE | 2017-12-03 17:59 | NUR ---
SEEN BY DR. Jp GUNDERSON. UPDATED PT CONDITION. WILL FOLLOW UP ON ORDER.
[2017-12-03] MEDS ORDERED: VANCOMYCIN 500 MG in DEXTROSE 5% 100 ML IV SCH (18:00)
--- NOTE | 2017-12-03 18:35 | NUR ---
PT RESTING IN BED. NO ACUTE RESPIRATORY DISTRESS NOTED. NO CHANGE LOC. WILL CONTINUE TO MONITOR.
--- NOTE | 2017-12-03 19:10 | NUR ---
RECEIVED PT ON VENT SETTINGS AC14, VT 350, PEEP 5, 35%FI02. ETT 7.5 AND 20@TEETH. AIRWAY IS SECURED AND PATENT. VENT IS PLUGGED INTO RED OUTLET AND AMBU-BAG IS IN ROOM. NO RESPIRATORY DISTRESS IS NOTED. VENT ALARMS ARE ON AND FUNCTIONING. PT IS STABLE. WILL CONTINUE TO MONITOR.
--- NOTE | 2017-12-03 19:30 | NUR ---
RECEIVED REPORT FROM MORNING RN FOR CONTINUITY OF CARE. PT IN STABLE CONDITION AT THIS TIME. VS STABLE. PT ABLE TO OPEN EYES BUT LETHARGIC. PT HAS NO SEDATION GOING. PERRL. PT AFEBRILE. ETT TO VENT WITH SETTINGS: AC14, FIO2 35%, TV 350, AND PEEP 5. NO SIGNS OF RESPIRATORY DISTRESS NOTED. S1+S2 HEARD. PULSES PALPABLE IN EXTREMITIES. SINUS TACHYCARDIA ON MONITOR. ABDOMEN ROUND, SOFT AND NONDISTENDED. OGT IN PLACE. NO RESIDUAL NOTED. PT HAS FEEDING RUNNING AT 55ML/HR. DELANEY CATHETER IN PLACE AND DRAINING CLEAR AND YELLOW URINE. DELANEY CATHETER SECURED IN PLACE. PT HAS RIGHT IJ DENNIS CATH. PT HAS PERIPHERAL IV ACCESS RIGHT HAND 22G, 2 RIGHT FOREARM 20G AND LEFT WRIST 22G. ALL LINES ARE PATENT, INTACT,AND ASYMPTOMATIC. SCD IN PLACE. CALL LIGHT WITHIN REACH. BED AT LOW POSSIBLE POSITION. ALL SAFETY PRECAUTIONS ARE IN PLACE. WILL CONTINUE TO MONITOR PT.
--- NOTE | 2017-12-03 19:39 | NUR ---
ENDORSED TO NOC SHIFT RN FOR CONTINUITY OF CARE. PT ON STABLE CONDITION.
--- NOTE | 2017-12-03 19:50 | NUR ---
DR. CACERES AT BEDSIDE. UPDATED REGARDING PT CONDITION AND REGARDING POSSIBLE [facility] TRANSFER. WILL FOLLOW UP WITH ANY NEW ORDER.
--- NOTE | 2017-12-03 19:51 | NUR ---
PER CELSO HART TO TRANSFER PT TO [place]. NOTED AND WILL CARRY OUT.
[2017-12-03] MEDS: PIPER/TAZO 2.25GM/D5W PREMIX 50 ML IV SCH (20:35)
[2017-12-03 20:45] LABS: ANION GAP 11.6 (8-16); CARBON DIOXIDE 30.2 mmol/L (21-32); CREATININE 3.3 mg/dL (0.6-1.3); POTASSIUM 3.8 mmol/L (3.5-5.1)
--- NOTE | 2017-12-03 21:45 | NUR ---
DR. ONEIL TO SEE PT AT THIS TIME. WILL F/U WITH ANY ORDERS.
[2017-12-04] VITALS (19 sets, daily range): BP systolic 113–157; BP diastolic 64–86
[2017-12-04] MEDS: BLOOD GLUCOSE MONITORING 1 DEV DEV FS SCH ×6 (00:12→20:33)
[2017-12-04] MEDS: METOCLOPRAMIDE 10 MG/2 ML INJ VIAL IVP SCH ×4 (00:13→18:29)
[2017-12-04] MEDS: INSULIN LISPRO SLIDING SCALE 100 UNITS/ML VIAL SUBQ PRN ×6 (00:14→20:35)
--- NOTE | 2017-12-04 01:00 | NUR ---
PT APPEARS TO BE IN PAIN. PT GRIMACING AND STARTING TO BE UNEASY. PT REPOSITIONED BY INEFFECTIVE. MEDICATION ADMINISTERED ORDERED. WILL REASSESS PT.
[2017-12-04] MEDS: HYDROcodone/APAP 5/325 MG 1 TAB TAB PO PRN ×3 (01:02→18:28)
[2017-12-04] MEDS: LORazepam 2 MG/ML VIAL IVP PRN (01:30)
--- NOTE | 2017-12-04 01:50 | NUR ---
PT REMOVED BP CUFF. EXPLAINED TO PT THAT IT HAS TO BE PUT BACK ON HER ARM D/T BLOOD PRESSURE MONITORING. PT REFUSE FOR CUFF TO BE PLACED. WILL TRY AGAIN. Addendum: 12/04/17 at 0219 by Juwan Diaz RN RANDY HERNANDEZ
--- NOTE | 2017-12-04 02:00 | NUR ---
VS STABLE AT THIS TIME. PT APPEARS TO BE COMFORTABLE IN BED. PT DOES NOT APPEAR TO BE UNEASY ANYMORE. NO CHANGE IN CONDITION AT THIS TIME. SINUS TACHYCARDIA ON MONITOR. WILL CONTINUE TO MONITOR PT.
[2017-12-04] MEDS: ALBUTEROL SULFATE/IPRATROPIU 3 ML SOL IH SCH ×5 (03:16→19:30)
[2017-12-04] MEDS: PIPER/TAZO 2.25GM/D5W PREMIX 50 ML IV SCH ×2 (04:07→12:40)
[2017-12-04] MEDS: INSULIN NPH HUMAN ISOPHANE 100 UNIT/ML VIAL SUBQ SCH ×2 (04:08→14:17)
--- NOTE | 2017-12-04 05:20 | NUR ---
MORNING CARE PROVIDED TO PT. PT HAD ONE LARGE BM THAT IS GREENISH BROWN AND SOFT TO LIQUID IN TEXTURE. LINENS CHANGED. PT TOLERATED BEING TURNED AND REPOSITIONED. WILL CONTINUE TO MONITOR PT.
--- NOTE | 2017-12-04 06:19 | NUR ---
NEW ORDER FOR FNS CONSULT DUE TO CHANGE IN TF FORMULA.
[2017-12-04 06:50] LABS: HEMATOCRIT 27.6 % (36-48); HEMOGLOBIN 9.1 g/dL (12.0-16.0); MEAN CORPUSCULAR HEMOGLOBIN 27 pg (27-31); MEAN CORPUSCULAR HGB CONC 33 g/dL (33-37); MEAN CORPUSCULAR VOLUME 80.7 fL (80-94); PLATELET COUNT (AUTO) 146 K/uL (140-450); RED BLOOD CELL COUNT(AUTO) 3.42 MIL/uL (4.20-5.40); RED CELL DISTRIBUTION WIDTH 14.1 % (11.6-13.7); WHITE BLOOD COUNT (AUTO) 9.5 K/uL (4.8-10.8)
--- NOTE | 2017-12-04 06:55 | NUR ---
RECEIVED INTUBATED PT WITH A 7.5 ETT SECURED @20 TEETH/GUMS ON VENT. SETTINGS AC 14, VT 350, PEEP 5 AND FIO2 35%. PT SUCTIONED OBTAINED SMALL AMOUNT OF THICK WHITE/CLEAR SECRETIONS, AIRWAY IS PATENT AND ETT IS SECURE. THERE IS NO BITING OR KINKING OF ETT. VENT IS PLUGGED INTO A RED OUTLET WITH ALARMS ON AND FUNCTIONING. AMBU BAG IS PRESENT AT BEDSIDE. PT IS NOT SOB AND NOT IN RESPIRATORY DISTRESS AT THIS TIME.
[2017-12-04 07:04] LABS: ALBUMIN 2.1 g/dL (3.4-5.0); ANION GAP 11.5 (8-16); CARBON DIOXIDE 32.8 mmol/L (21-32); MAGNESIUM 2.5 mg/dL (1.8-2.4); PHOSPHORUS 4.3 mg/dL (2.5-4.9); POTASSIUM 3.3 mmol/L (3.5-5.1); TOTAL BILIRUBIN 0.5 mg/dL (0.0-1.0)
[2017-12-04 07:08] LABS: CREATININE 4.1 mg/dL (0.6-1.3)
--- NOTE | 2017-12-04 07:10 | NUR ---
RECEIVED REPORT FROM NOC SHIFT RN. PT SLEEPING IN BED. ST ON MONITOR. PUPILS REACTIVE TO LIGHT. SKIN DRY AND WARM TO TOUCH. PT ON ETT TO VENT AC 14 FIO2 35% PEEP 5. OGT IN PLACE, POSITIVE PLACEMENT. RESIDUAL 0. NOVASOURCE RUNNING AT 55 ML/HR. LUNGS SOUND CLEAR ON AUSCULTATION. ABDOMEN SOFT, ROUND AND NON-TENDER. ACTIVE BOWEL SOUND. SKIN INTACT. DELANEY'S CATH IN PLACE, HEMATURIA NOTED. BED IN LOW POSITION, LOCKED. WILL CONTINUE TO MONITOR.
--- NOTE | 2017-12-04 07:10 | NUR ---
REPORT GIVEN TO MORNING RN FOR CONTINUITY OF CARE. PT IN STABLE CONDITION AT THIS TIME.
--- NOTE | 2017-12-04 07:15 | NUR ---
CRITICAL LAB RECEIVED. SENIOR INTERNAL AUDITOR=4.1. PAGED DR. GUNDERSON. ENDORSED THE FINDING TO MORNING NURSE, CHAO NAGEL.
[2017-12-04 07:17] LABS: EOSINOPHILS % (MANUAL) 1 % (0-4); LYMPHOCYTES % (MANUAL) 24 % (20-46); MONOCYTES % (MANUAL) 10 % (5-12)
--- NOTE | 2017-12-04 08:16 | NUR ---
CALLED DR. Jp GUNDERSON NOTIFIED ABOUT TRENDING DOWN POTASSIUM 3.3 AND MG 2.5, ALSO NOTIFIED ABOUT OKAY TO TRANSFER TO [facility] PER DR. CACERES. WILL WAIT FOR. DR. Marco GUNDERSON TO COME AND EVALUATE PT.
[2017-12-04] MEDS ORDERED: CLINICAL MONITORING MC SCH (09:00)
[2017-12-04] MEDS ORDERED: KCL 20 MEQ/WATER INJ PREMIX 100 ML IV SCH (09:00)
[2017-12-04] MEDS: LACTOBACILLUS RHAMNOSUS GG 1 EACH CAP PO SCH (09:05)
[2017-12-04] MEDS: FUROSEMIDE 40 MG/4 ML VIAL IVP SCH (09:06)
--- NOTE | 2017-12-04 09:19 | NUR ---
PT EVALUATED BY RT.
--- NOTE | 2017-12-04 09:27 | NUR ---
DR GUNDERSON IN WITH ORDERS OK TO TRANSFER TO [facility] WHEN BED IS AVAILABLE. ORDERS TRANSCRIBED AND CARRIED OUT.
--- NOTE | 2017-12-04 09:47 | NUR ---
12/04/17 RD FOLLOW UP COMPLETED REFER TO NUTRITION PROGRESS NOTE UNDER CARE ACTIVITY FOR ESTIMATED NEEDS. RD RECOMMENDATIONS: 1.MODIFY TF ORDER TO NOVASOURCE RENAL GOAL RATE 35ML/HR +50ML FREE WATER FLUSH Q4H PROVIDES DAILY: 840ML, 1680KCALS, 76G PROTEIN, 902ML FREE WATER *D/W RN. 2. RD WILL FOLLOW UP IN 2-3 DAYS; HIGH RISK [place] POST RD, CNSC
--- NOTE | 2017-12-04 09:54 | NUR ---
NOTIFIED DR. Marco GUNDERSON ABOUT HEMATURIA. STILL OKAY TO TRANSFER TO [facility].
--- NOTE | 2017-12-04 10:00 | NUR ---
ALL CONSULTS (DR. GOMEZ, DR. FUNEZ, DR. GARCIA-NEPHRUSS). PAGED REGARDING ORDERS FOR TRANSFER.
--- NOTE | 2017-12-04 10:10 | NUR ---
CALLED REGGIE AT [phone], SPOKE TO RINKU (SLITTER AND REWINDER MACHINE OPERATOR) INFORMED HER THAT PATIENT HAS ORDER OK TO BE TRANSFERRED WHEN BED IS AVAILABLE. TRANSFER ORDER FAXED TO [phone].
--- NOTE | 2017-12-04 10:25 | NUR ---
NOTIFIED DR. MELENDEZ ABOUT THE TRANSFER ORDER.
--- NOTE | 2017-12-04 10:30 | NUR ---
CALLED REGGIE AGAIN FOR ANOTHER FAX NUMBER, SPOKE TO DECEMBER. SHE GAVE ME ANOTHER FAX NUMBER. WILL SEND FAX.
--- NOTE | 2017-12-04 11:00 | NUR ---
YAMILKA FROM [facility] CALLED, SHE STATED SHE NEEDED UPDATED CLINICALS. PROGRESS NOTES FAXED TO [phone]. Addendum: 12/04/17 at 1414 by Bria Ayers RN CORRECT FAX NUMBER [phone]
--- NOTE | 2017-12-04 11:06 | NUR ---
RT AT BEDSIDE.
--- NOTE | 2017-12-04 11:06 | NUR ---
PT THREW UP DURING REPOSITIONING ZOFRAN IVP ADMINISTERED PER ORDER.
[2017-12-04] MEDS ORDERED: cloNIDine 0.1 MG TAB NG PRN (11:30)
--- NOTE | 2017-12-04 11:30 | NUR ---
BELA PERSONNEL OFFICER MADE AWARE OF REQUEST FOR TRANSFER, SHE STATED SHE WILL FOLLOW UP WITH [facility].
--- NOTE | 2017-12-04 11:50 | NUR ---
PT SLEEPING IN BED COMFORTABLY. HR 109, BP 136/66, RR 25 SPO2 98%. NO CHANGE IN LOC. WILL CONTINUE TO MONITOR.
--- NOTE | 2017-12-04 13:16 | NUR ---
PT ASLEEP AT THIS TIME . PT NOT SHOWING ANY SIGNS/SYMPTOMS OF RESPIRATORY DISTRESS. SUCTIONING NOT INDICATED AT THIS TIME. WILL CONTINUE TO MONITOR.
--- NOTE | 2017-12-04 14:18 | NUR ---
SPOKE TO RINKU FROM [facility], CONFIRMED THAT THEY RECEIVED THE FAX. LUCIANO IS THE GREASE BUFFER WORKING ON THE CASE. GAVE RINKU OUR CONTACT NUMBER IF IN CASE THEY HAVE FOUND A FACILITY. RINKU ALSO STATED THAT IT COULD BE [facility]. WILL FOLLOW UP.
--- NOTE | 2017-12-04 14:30 | NUR ---
Social Service Note: Per December from [facility] she is coordinating patient's transfer to [facility] with egg caser Kelly (also from [facility]), she stated she will fax ICU a checklist for transfer, I provided her with ICU's fax number. She stated she will contact ICU and speak with Bria and provide her with assigned room number for patient at [facility], I informed CHAO Fraser of this.
--- NOTE | 2017-12-04 14:43 | NUR ---
FAMILY AT BEDSIDE. UPDATED PT CONDITION AND TRANSFER ORDER.
[2017-12-04] MEDS ORDERED: VANCOMYCIN 500 MG in DEXTROSE 5% 100 ML IV SCH (15:00)
[2017-12-04] MEDS ORDERED: LEVOFLOXACIN 250 MG/D5 PREMIX 50 ML IV SCH (16:00)
--- NOTE | 2017-12-04 16:14 | NUR ---
KEPT PT CLEAN AND DRY. CATHETER CARE PROVIDED. PT RESTING IN BED COMFORTABLY, ABLE TO FOLLOW SIMPLE COMMANDS. WILL CONTINUE TO MONITOR.
--- NOTE | 2017-12-04 16:59 | NUR ---
PT REMAINS ON DOCUMENTED VENT SETTINGS. PT IS NOT IN ANY DISTRESS AT THIS TIME. VENT ALARMS REMAIN ON AND FUNCTIONING. ETT REMAINS SECURE WITH A PATENT AIRWAY.
--- NOTE | 2017-12-04 17:00 | NUR ---
KEAGAN, SPICE GRINDER FROM [facility] CALLED TO GET INFORMATION ABOUT THE PATIENT. ALL INFORMATIONS NEEDED FOR TRANSFER PROVIDED. SHE STATED THAT A PATIENT LEAD CUSTODIAN WILL BE CALLING ME FOR SOME INFORMATIONS TOO, WHICH [facility] AND WHICH ROOM THE PATIENT WILL BE GOING TO.
--- NOTE | 2017-12-04 17:17 | NUR ---
PT SLEEPING IN BED COMFORTABLY. DAUGHTER IN, UPDATED PT CONDITION AND TRANSFER IN PROCESS. VS WITHIN NORMAL RANGE. WILL CONTINUE TO MONITOR.
--- NOTE | 2017-12-04 18:27 | NUR ---
RECEIVED A CALL FROM DECEMBER ([employer]). SHE STATED PATIENT WILL BE GOING TO [facility], ROOM 240. NURSE TO NURSE REPORT CALL MARQUISE AT [phone]. DIRECTOR SMB SALES AT 1999 BUT NO TRANSPORT NAME YET. WILL CALL AGAIN AT 1900 TO GET LATEST V/S AND TRANSPORT INFORMATION. SHE ALSO STATED SHE WILL FAX CHECKLIST INFORMATION. PRIMARY RN MADE AWARE. PATIENT'S DAUGHTER KIMMY MADE AWARE.
--- NOTE | 2017-12-04 18:34 | NUR ---
SEEN BY DR. CACERES. SHAHBAZ TO TRANSFER.
--- NOTE | 2017-12-04 18:54 | NUR ---
REPORT GIVEN TO CHAO CAMARILLO. PT IS TRANSFERRING TO [facility] ROOM [address]. [address] DR[address] WILL BE DR. GONCALVES.
--- NOTE | 2017-12-04 19:22 | NUR ---
REPORT GIVEN TO NOC SHIFT RN FOR CONTINUITY OF CARE. PT ON STABLE CONDITION.
--- NOTE | 2017-12-04 19:33 | NUR ---
CLARIFIED ORDER FOR PNEUMONIA VACCINE WITH DR. Marco GUNDERSON. HE STATED [facility] CAN ADMINISTER PNEUMONIA VACCINE.
--- NOTE | 2017-12-04 19:42 | NUR ---
RECEIVED PT STABLE ON VENT SUPPORT AT DOCUMENTED SETTINGS, SUCTIONED SCANT SECRETIONS, HHN TX GIVEN, TOLERATED WELL, NO RESP DISTRESS OR SOB NOTED AT THIS TIME, 7.5 ETT SECURED AT 20 CM AT THE TEETH/GUMS, ALARMS SET AND AUDIBLE, AMBU BAG AT BEDSIDE, VENT PLUGGED INTO RED OUTLET, PULSE OX ON, AWAITING TRANSFER TO [place], WILL CONTINUE TO MONITOR.
--- NOTE | 2017-12-04 20:35 | NUR ---
PT TRANSFERRED TO [facility] FROM [place] [facility] VIA [facility] WITH 2 ASSISTANTS AND ONE RN. BEDSIDE REPORT GIVEN TO TRANSFERRING NURSE RN. PT' VITAL SIGNS STABLE. NO ACUTE RESPIRATORY DISTRESS NOTED. NO FEVER NOTED. 1999 ACCUCHECK DONE 242 NOTED. GIVEN 2 UNITS OF INSULIN. PT IS LEAVING AT THIS TIME.
== END 2017-12-04 20:38 | disposition short-term general hospital (02) | DRG 870 ==
LOC: MED 10:22 → MIC 13:23
PROVIDERS: ADMIT Preventive Medicine Preventive Medicine/Occupational Environmental Medicine; ATTEND Preventive Medicine Preventive Medicine/Occupational Environmental Medicine
PROC: 5A1955Z Respiratory Ventilation, Greater than 96 Consecutive Hours (ICD-10-PCS; principal; 2017-11-28)
PROC: 0BH17EZ Insertion of Endotracheal Airway into Trachea, Via Natural or Artificial Opening (ICD-10-PCS; 2017-11-28)
PROC: 5A1D70Z Performance of Urinary Filtration, Intermittent, Less than 6 Hours Per Day (ICD-10-PCS; 2017-11-30)
PROC: 02H633Z Insertion of Infusion Device into Right Atrium, Percutaneous Approach (ICD-10-PCS; 2017-11-30)
PROC: B543ZZA Ultrasonography of Right Jugular Veins, Guidance (ICD-10-PCS; 2017-11-30)
PROC: 5A1D70Z Performance of Urinary Filtration, Intermittent, Less than 6 Hours Per Day (ICD-10-PCS; 2017-12-03)
DX: A41.9 Sepsis, unspecified organism (principal); J96.01 Acute respiratory failure with hypoxia; N17.0 Acute kidney failure with tubular necrosis; J69.0 Pneumonitis due to inhalation of food and vomit; G93.41 Metabolic encephalopathy; Z99.11 Dependence on respirator [ventilator] status; E11.10 Type 2 diabetes mellitus with ketoacidosis without coma; N39.0 Urinary tract infection, site not specified; E87.1 Hypo-osmolality and hyponatremia; B37.49 Other urogenital candidiasis; E87.0 Hyperosmolality and hypernatremia; E86.0 Dehydration; E83.51 Hypocalcemia; D64.9 Anemia, unspecified; E11.22 Type 2 diabetes mellitus with diabetic chronic kidney disease; E78.5 Hyperlipidemia, unspecified; E83.41 Hypermagnesemia; E87.6 Hypokalemia; E88.09 Other disorders of plasma-protein metabolism, not elsewhere classified; I12.9 Hypertensive chronic kidney disease with stage 1 through stage 4 chronic kidney disease, or unspecified chronic kidney disease; N18.9 Chronic kidney disease, unspecified; Z83.3 Family history of diabetes mellitus; Z91.14 Patient's other noncompliance with medication regimen; Z91.19 Patient's noncompliance with other medical treatment and regimen; Z99.2 Dependence on renal dialysis; R74.0 Nonspecific elevation of levels of transaminase and lactic acid dehydrogenase [LDH]
CPT/HCPCS: 36415; 36600; 70450; 71045; 74018; 76770; 80048; 80053; 80076; 80202; 80305; 81001; 82009; 82803; 82948; 83605; 83735; 84100; 84300; 85025; 85651; 86140; 86704; 86706; 86708; 86709; 86803; 87040; 87070; 87081; 87086; 87205; 87340; 87804; 89220; 90935; 93005; 94002; 94003; 94640; 96361; 96365; 96368; 96375; 99291; G0480; G0482; J0696; J1644; J1815; J1940; J1956; J2060; J2250; J2270; J2405; J2543; J2704; J2765; J3010; J3370; J3475; J3480; J3490; J7030; J7060; J7620; P9046; Q0092

== ENCOUNTER 2020-12-14 12:06 | Emergency (ER) | payer OTHER ==
[~2020-12-14] VITALS: Ht 154.9 cm; Wt 40.4 kg
[2020-12-14 12:13] VITALS: BP 145/90
--- NOTE | 2020-12-14 12:22 | NUR ---
Patient ambulated with steady gait to bed 6.
--- NOTE | 2020-12-14 12:23 | NUR ---
Leo hogue in [facility] - 12/14/20 at 1250 by MED1 application support technician at bedside.
--- NOTE | 2020-12-14 12:26 | NUR ---
60 Y/O FEMALE C/O GENERALIZED WEAKNESS X 4DAYS. PT STATES +N/V, SUBJECTIVE FEVER AT HOME/CHILLS, MYALGIA, WEAKNESS, FATIGUE. BLOOD SUGAR 403 AT THIS TIME. PT STATES SHE STOPS TAKING HER INSULIN WHEN SHE FEELS SYMPTOMS OF WEAKNESS. ABDOMEN IS SOFT, FLAT, NON-TENDER TO PALPATION, BOWEL SOUNDS ACTIVE X4. LAST BM 12/11/20. PMH: DM MED INSULIN NKA
--- NOTE | 2020-12-14 12:34 | NUR ---
DR. MORGAN AT PT BEDSIDE FOR FURTHER EVALUATION.
[2020-12-14] MEDS ORDERED: ONDANSETRON 4 MG/2 ML VIAL IVP ONE (12:40)
[2020-12-14] MEDS ORDERED: NACL 0.9% 1,000 ML IV ONE ×2 (12:40→13:50)
--- NOTE | 2020-12-14 12:43 | NUR ---
information technology consultant at pt bedside.
[2020-12-14 12:51] LABS: BASOPHILS % (AUTO) 0.3 % (0.0-2.0); EOSINOPHILS # (AUTO) 0.1 K/uL (0-0.4); EOSINOPHILS % (AUTO) 0.8 % (0.0-4.0); HEMATOCRIT 45.7 % (36-48); HEMOGLOBIN 15.2 g/dL (12.0-16.0); LYMPHOCYTES # (AUTO) 1.9 K/uL (2.5-16.5); LYMPHOCYTES % (AUTO) 30.1 % (20.5-51.1); MEAN CORPUSCULAR HEMOGLOBIN 27 pg (27-31); MEAN CORPUSCULAR HGB CONC 33 g/dL (33-37); MEAN CORPUSCULAR VOLUME 81.5 fL (80-94); MONOCYTES # (AUTO) 0.6 K/uL (0.8-1.0); MONOCYTES % (AUTO) 9.3 % (1.7-9.3); NEUTROPHILS # (AUTO) 3.8 K/uL (1.8-7.7); NEUTROPHILS % (AUTO) 59.5 % (42.2-75.2); PLATELET COUNT (AUTO) 295 K/uL (140-450); RED BLOOD CELL COUNT(AUTO) 5.61 MIL/uL (4.20-5.40); RED CELL DISTRIBUTION WIDTH 13.2 % (11.6-13.7); WHITE BLOOD COUNT (AUTO) 6.4 K/uL (4.8-10.8)
[2020-12-14 13:21] LABS: ANION GAP 27.9 (8-16); CREATININE 1.5 mg/dL (0.6-1.3); POTASSIUM 3.9 mmol/L (3.5-5.1); TOTAL BILIRUBIN 0.6 mg/dL (0.0-1.0)
[2020-12-14 13:21] LABS: BILIRUBIN,URINE 2+ (NEGATIVE); BLOOD, URINE 2+ (NEGATIVE); COLOR,URINE YELLOW (YELLOW); LEUKOCYTE ESTERASE ,URINE 1+ (NEGATIVE); NITRITE, URINE NEGATIVE (NEGATIVE); UGLUCOSE 3+ (NEGATIVE)
[2020-12-14 13:38] LABS: APPEARANCE,URINE HAZY (CLEAR)
[2020-12-14] MEDS ORDERED: INSULIN REGULAR, HUMAN 100 UNIT in NACL 0.9% 100 ML IV ONE ×2 (13:55)
[2020-12-14] MEDS ORDERED: POTASSIUM CHL 20 MEQ/NACL 0.9% 1,000 ML IV ONE (13:55)
--- NOTE | 2020-12-14 14:44 | NUR ---
Pt redused second IV access, running insulin drip to right AC at 4unit/hr. made aware.
--- NOTE | 2020-12-14 14:49 | NUR ---
PATIENT REFUSING ABG AT THIS TIME STATING "I DO NOT WANT TO BE POKED ANYMORE" DR MORGAN MADE AWARE.
--- NOTE | 2020-12-14 14:50 | NUR ---
spoke to patient regarding abg, tried on left brachial, and after one attempt pt stated that she couldnt do this anymore. patient is refusing any more attempts at abg and rn stated pt refused a second iv line as well. md is aware and informed of refusals of patient.
--- NOTE | 2020-12-14 15:31 | NUR ---
Patient does not wish to proceed with medical care recommended by Dr. Perry. Patient given information related to possible complications, up to and including , which could occur as a result of leaving hospital at this time. Patient verbalizes understanding of risks involved leaving against medical advice. Patient has signed AMA form.
--- NOTE | 2020-12-17 02:32 | NUR ---
LATE ENTRY- NORMAL SALINE 0.9% DISCONTINUED AT 1600
--- NOTE | 2020-12-19 15:31 | NUR ---
LATE ENTRY -- INSULIN INFUSION COMPLETED AT 1530
== END 2020-12-14 15:40 | disposition left against medical advice (07) ==
LOC: MED 12:06
DX: E11.10 Type 2 diabetes mellitus with ketoacidosis without coma (principal)
CPT/HCPCS: 36415; 71045; 80053; 81001; 82009; 83605; 84484; 85025; 87086; 87186; 93005; 96361; 96365; 96375; 99291; J1815; J2405; J7030

== ENCOUNTER 2021-03-30 21:17 | Inpatient (IN) | payer OTHER ==
[~2021-03-30] VITALS: Ht 160 cm; Wt 39.0 kg
[2021-03-30 21:17] VITALS: BP 153/76
--- NOTE | 2021-03-30 21:17 | NUR ---
[facility]PE ALS TO ER BED 8
--- NOTE | 2021-03-30 21:20 | NUR ---
60 YO/F BIBA FOR ALTERED MENTAL STATUS. PATIENT PRESENTS GCS 10 SPONTANEOUS, PURPOSEFUL, NON-VERBAL, PERRL 3MM. PATIENT IS TACHYCARDIC AT 119, 99O2 ON ROOM AIR, 28RR KUSSMAL BREATHING RAPID AND DEEP, 153/76BP. CAP REFIL <3SEC, +2 RADIAL AND PEDAL PULSES. LUNG SOUNDS CLEAR THROUGHOUT. PATIENT GLUCOSE TOO HIGH TOO READ. PATIENT LAYING IN BED, BED LOCKED IN LOWEST POSITION. X2 SIDERAILS UP FOR PATIENT SAFETY. CONNECTED TO MONITOR, WILL CONTINUE TO MONITOR. PMH: DIABETES (PER [facility], FROM PATIENT DAUGHTER) NKA (PER [facility], FROM PATIENT DAUGHTER)
[2021-03-30] MEDS ORDERED: VANCOMYCIN 1GM/DEXT 5% PREMIX 200 ML IV ONE (21:35)
[2021-03-30] MEDS ORDERED: NACL 0.9% 2,000 ML IV ONE (21:35)
[2021-03-30] MEDS ORDERED: VANCOMYCIN PER PHARMACY MC PRN (21:35)
--- NOTE | 2021-03-30 21:40 | NUR ---
BLOOD DRAWN VIA IV AND GIVEN TO SAMUEL BARRERA TECH
[2021-03-30] MEDS ORDERED: cefTRIAXone 1,000 MG VIAL ONE (21:49)
--- NOTE | 2021-03-30 22:00 | NUR ---
PATIENT TAKEN TO CT, VIA GURNEY.
--- NOTE | 2021-03-30 22:00 | NUR ---
PT TAKEN TO CT VIA JESSE
[2021-03-30 22:02] LABS: HEMATOCRIT 46.1 % (36-48); HEMOGLOBIN 13.7 g/dL (12.0-16.0); MEAN CORPUSCULAR HEMOGLOBIN 27 pg (27-31); MEAN CORPUSCULAR HGB CONC 30 g/dL (33-37); MEAN CORPUSCULAR VOLUME 92.1 fL (80-94); PLATELET COUNT (AUTO) 324 K/uL (140-450); RED CELL DISTRIBUTION WIDTH 16.4 % (11.6-13.7); WHITE BLOOD COUNT (AUTO) 22.4 K/uL (4.8-10.8)
[2021-03-30 22:06] LABS: ALBUMIN 4.2 g/dL (3.4-5.0); TOTAL BILIRUBIN 0.5 mg/dL (0.0-1.0)
[2021-03-30 22:08] LABS: LYMPHOCYTES % (MANUAL) 3 % (20-46); MONOCYTES % (MANUAL) 6 % (5-12)
--- NOTE | 2021-03-30 22:19 | NUR ---
URINE COLLECTED VIA STRAIGHT CATH W 500 CC OF CLEAR YELLOW URINE. SAMPLE HANDED TO BRUCE FROM LAB.
[2021-03-30 22:24] LABS: ACETAMINOPHEN < 0.5 ug/ml (10-30); FREE T4 (FREE THYROXINE) 0.65 ng/dL (0.76-1.46); SALICYLATE 7.5 mg/dL (2.8-20.0)
[2021-03-30 22:25] LABS: ANION GAP 36.4 (8-16)
[2021-03-30 22:27] LABS: CARBON DIOXIDE 4.6 mmol/L (21-32)
[2021-03-30] MEDS ORDERED: INSULIN REGULAR, HUMAN 100 UNIT in NACL 0.9% 100 ML IV SCH ×2 (22:35)
[2021-03-30] MEDS ORDERED: DEXTROSE 50% 50 ML SYR IVP PRN (22:35)
[2021-03-30] MEDS: BLOOD GLUCOSE MONITORING 1 DEV DEV FS SCH (22:59)
--- NOTE | 2021-03-30 23:10 | NUR ---
ACCOMPANIED PATIENT TO CT AT THIS TIME.
[2021-03-30] MEDS ORDERED: SODIUM BICARBONATE 8.4% PFS 50 MEQ/50 ML SYR IVP ONE ×2 (23:15→23:58)
[2021-03-30] MEDS ORDERED: VANCOMYCIN 1,000 MG VIAL ONE (23:27)
[2021-03-30 23:31] LABS: APPEARANCE,URINE CLEAR (CLEAR); BILIRUBIN,URINE 1+ (NEGATIVE); BLOOD, URINE TRACE-L (NEGATIVE); COLOR,URINE YELLOW (YELLOW); LEUKOCYTE ESTERASE ,URINE NEGATIVE (NEGATIVE); NITRITE, URINE NEGATIVE (NEGATIVE); PH,URINE 5.5 (5.0-9.0); UGLUCOSE 3+ (NEGATIVE)
[2021-03-30 23:33] LABS: RBC,URINE 0-5 /HPF (0-5); WBC,URINE 0-5 /HPF (0-5)
--- NOTE | 2021-03-30 23:55 | NUR ---
ERMD MADE AWARE PATIENT GLUCOSE AT THIS TIME IS TOO HIGH TO READ. PER ERMD, CHANGE INSULIN DRIP RATE TO 6U/HR.
[2021-03-31] VITALS (14 sets, daily range): BP systolic 92–139; BP diastolic 45–72
[2021-03-31] MEDS: BLOOD GLUCOSE MONITORING 1 DEV DEV FS SCH ×18 (00:11→23:00)
--- NOTE | 2021-03-31 00:20 | NUR ---
PATIENT LAYING IN BED LOCKED IN LOWEST POSITION, HOB SLIGHTLY ELEVATED. X2 SIDERAILS UP FOR PATIENT SAFETY. CONNECTED TO MONITOR W VSS, TACHYCARDIC AT 30RR. NAD NOTED WILL CONTINUE TO MONITOR.
[2021-03-31] MEDS ORDERED: INSULIN REGULAR, HUMAN 100 UNIT in NACL 0.9% 100 ML IV SCH ×4 (00:40→01:10)
[2021-03-31] MEDS: BLOOD GLUCOSE MONITORING 1 DEV DEV MC SCH ×7 (00:40→06:30)
[2021-03-31 01:28] LABS: MAGNESIUM 2.2 mg/dL (1.8-2.4); PHOSPHORUS 3.8 mg/dL (2.5-4.9)
[2021-03-31 01:39] LABS: POTASSIUM 4.5 mmol/L (3.5-5.1)
[2021-03-31 01:40] LABS: ANION GAP 33.6 (8-16); CREATININE 1.8 mg/dL (0.6-1.3)
--- NOTE | 2021-03-31 01:42 | NUR ---
CONTACTED ADMIN DOCTOR VIA TEXT MESSAGES TO REPORT CRTICAL LAB VALUES OF CO2 6.9, AND GLUCOSE OF 709. NO NEW ORDERS AT THIS TIME.
[2021-03-31 01:43] LABS: CARBON DIOXIDE 6.9 mmol/L (21-32)
[2021-03-31] MEDS: NACL 0.9% 1,000 ML IV SCH ×4 (02:16→15:40)
--- NOTE | 2021-03-31 02:30 | NUR ---
PATIENT AWAKE GCS13, MILD WEAKNESS TO UPPER EXTREMETIES, PATIENT SAT UP IN BED TRYING TO GET UP, TALKED TO PATIENT ABOUT HER CURRENT STATUS, ADVISED PATIENT TO LAY BACK DOWN, PATIENT FOLLOWED COMMANDS. PATIENT LAYING IN BED LOCKED IN LOWEST POSITION, HOB SLIGHTLY ELEVATED. X2 SIDERAILS UP FOR PATIENT SAFETY. CONNECTED TO MONITOR W VSS. NAD NOTED WILL CONTINUE TO MONITOR.
[2021-03-31] MEDS ORDERED: POTASSIUM CHL 20 MEQ/NACL 0.9% 1,000 ML IV SCH (03:00)
--- NOTE | 2021-03-31 04:00 | NUR ---
PATIENT LAYING IN BED W EYES CLOSED. AOX4, GCS 15. PATIENT DENIES ANY PAIN, WILL COMMUNICATED SLIGHTLY AND ANSWER SOME QUESTIONS THEN TAKE BREAKS AND BREATH. LOCKED IN LOWEST POSITION, HOB SLIGHTLY ELEVATED. X2 SIDERAILS UP FOR PATIENT SAFETY. CONNECTED TO MONITOR W VSS. NAD NOTED WILL CONTINUE TO MONITOR.
--- NOTE | 2021-03-31 05:20 | NUR ---
PROVIDED PERINEAL CARE TO PATIENT. RE-POSITIONED FOR COMFORT. PATIENT AOX4, GCS 15. BREATHING EVEN AND UNLABORED. CONNECTED TO MONITOR W VSS. PATIENT LAYING IN BED LOCKED IN LOWEST POSITION, HOB SLIGHTLY ELEVATED. X2 SIDERAILS UP FOR PATIENT SAFETY. NAD NOTED WILL CONTINUE TO MONITOR.
--- NOTE | 2021-03-31 05:40 | NUR ---
PATIENT LAYING IN BED W EYES CLOSED. LOCKED IN LOWEST POSITION, HOB SLIGHTLY ELEVATED. X2 SIDERAILS UP FOR PATIENT SAFETY. BREATHING EVEN AND UNLABORED. CONNECTED TO MONITOR W VSS. NAD NOTED WILL CONTINUE TO MONITOR.
--- NOTE | 2021-03-31 06:10 | NUR ---
Patient will be admitted to care of . Admited to ICU. Will go to room 3. Belongings list completed. Report to CHAO WALLACE .
--- NOTE | 2021-03-31 06:10 | NUR ---
ADMITTED THIS 60 YEAR OLD FEMALE PATIENT FROM ER PER FORTUNATO WITH THE ADMITTING DIAGNOSIS OF DKA.ASSISTED PATIENT IN ICU 3; HOOKED TO BLADE GRADER OPERATOR, SCOPE SHOWS ON SINUS RHYTHM HR90/MIN, NO ARRHYTHMIAS SEEN; ALERT, ABLE TO FOLLOW SIMPLE COMMANDS. COMMENCING ON IV REGULAR INSULIN AT 0.1 UNITS/KG/HR AND ON NORMAL SALINE AT 200 ML/HR PER DKA PROTOCOL. BREATHING EVEN AND UNLABORED ON ROOM AIR. ABDOMEN IS SOFT, ACTIVE BOWEL SOUNDS.
--- NOTE | 2021-03-31 06:10 | NUR ---
REPORT GIVEN TO CHAO WALLACE FROM ICU FOR TRANSFER OF PATIENT CARE AT THIS TIME.
--- NOTE | 2021-03-31 06:30 | NUR ---
MRSA SCREENING DONE; ACCUCHECK DONE RESULT IS 228; INSULIN DRIP REGULATED PER DKA PROTOCOL.
[2021-03-31] MEDS: INSULIN REGULAR, HUMAN 100 UNIT in NACL 0.9% 100 ML IV SCH ×4 (07:00→11:50)
[2021-03-31] MEDS ORDERED: DEXTROSE 50% 50 ML SYR IVP PRN (07:00)
--- NOTE | 2021-03-31 07:20 | NUR ---
RECEIVED REPORT FROM STEM FRAZER RN FOR CONTINUITY OF CARE. AOX2. SR ON MONITOR. ON ROOM AIR, SATURATING AT 100%. SKIN INTACT. IVS CLEAN, DRY, AND INTACT, ON RAC 20G INFUSING INSULIN DRIP AT 0.1 UNITS/KG/ HR, AND ON LAC 20G INFUSING NS 0.9 AT 200 ML/HR. ON DKA PROTOCOL LAST BLOOD SUGAR, 228. WAREHOUSE HAND, PULSE OXIMETER, AND SAFETY MEASURES IN PLACE. WILL FINISH ADMISSION. WILL CONTINUE TO MONITOR.
--- NOTE | 2021-03-31 07:21 | NUR ---
DR. MARQUIS WAS PAGED FOR CRITICAL LAB RESULTS AND UPDATED HER ON PATIENT'S LATEST MEDICAL CONDITION, WITH NEW ORDERS, CARRIED OUT.
--- NOTE | 2021-03-31 07:30 | NUR ---
ENDORSED TO AM SHIFT RN FOR CONTINUITY OF CARE.
--- NOTE | 2021-03-31 08:15 | NUR ---
PATIENT BLOOD SUGAR 156. TITRATED INSULIN DRIP FROM 0.1 UNITS/KG/HR TO 0.05 UNITS/KG/HR PER DKA PROTOCOL. STARTED D5 1/2NS. WILL CONTINUE TO MONITOR.
[2021-03-31 08:16] LABS: BASOPHILS # (AUTO) 0.1 K/uL (0.00-0.22); BASOPHILS % (AUTO) 0.6 % (0.0-2.0); HEMATOCRIT 40.4 % (36-48); HEMOGLOBIN 12.9 g/dL (12.0-16.0); LYMPHOCYTES # (AUTO) 0.6 K/uL (2.5-16.5); LYMPHOCYTES % (AUTO) 4.3 % (20.5-51.1); MEAN CORPUSCULAR HEMOGLOBIN 27 pg (27-31); MEAN CORPUSCULAR HGB CONC 32 g/dL (33-37); MEAN CORPUSCULAR VOLUME 85.6 fL (80-94); MONOCYTES # (AUTO) 0.6 K/uL (0.8-1.0); MONOCYTES % (AUTO) 4.1 % (1.7-9.3); NEUTROPHILS # (AUTO) 13.2 K/uL (1.8-7.7); PLATELET COUNT (AUTO) 232 K/uL (140-450); RED BLOOD CELL COUNT(AUTO) 4.72 MIL/uL (4.20-5.40); RED CELL DISTRIBUTION WIDTH 15.1 % (11.6-13.7); WHITE BLOOD COUNT (AUTO) 14.5 K/uL (4.8-10.8)
[2021-03-31 08:26] LABS: ANION GAP 17.9 (8-16); CREATININE 1.2 mg/dL (0.6-1.3)
--- NOTE | 2021-03-31 08:55 | NUR ---
PATIENT HAS BEEN SCREENED AND CATEGORIZED HIGH NUTRITION RISK. PATIENT WILL BE SEEN WITHIN 1-2 DAYS OF ADMISSION. 03/31/21-04/01/[address]
[2021-03-31 09:00] LABS: POTASSIUM 2.9 mmol/L (3.5-5.1)
[2021-03-31] MEDS ORDERED: POTASSIUM CHLORIDE 10 MEQ TABER PO PRN ×2 (09:05→15:55)
[2021-03-31] MEDS ORDERED: MAG SULF 2000 MG/WATER PREMIX 50 ML IV PRN (09:05)
[2021-03-31] MEDS: SODIUM PHOS / POTASSIUM PHOS 1 PKT PDR PO SCH ×3 (09:17→17:47)
--- NOTE | 2021-03-31 09:17 | NUR ---
ADMINISTERED SCHEDULED AM MEDICATIONS. WILL CONTINUE TO MONITOR.
[2021-03-31] MEDS ORDERED: POTASSIUM CHLORIDE 40 MEQ, LIDOCAINE MPF 1% 25 MG in NACL 0.9% 250 ML IV SCH (10:00)
--- NOTE | 2021-03-31 10:20 | NUR ---
ADMINISTERED POTASSIUM REPLACEMENT. WILL CONTINUE TO MONITOR.
[2021-03-31 11:48] LABS: MAGNESIUM 1.8 mg/dL (1.8-2.4)
[2021-03-31 11:50] LABS: PHOSPHORUS 0.7 mg/dL (2.5-4.9)
--- NOTE | 2021-03-31 12:00 | NUR ---
DENIES PAIN. NO SIGNS OF DISTRESS. WILL CONTINUE TO MONITOR.
[2021-03-31 12:17] LABS: ANION GAP 15.6 (8-16); CARBON DIOXIDE 17.5 mmol/L (21-32); CREATININE 1.2 mg/dL (0.6-1.3); POTASSIUM 3.1 mmol/L (3.5-5.1)
[2021-03-31 12:21] LABS: MAGNESIUM 1.7 mg/dL (1.8-2.4)
[2021-03-31 12:24] LABS: PHOSPHORUS 0.4 mg/dL (2.5-4.9)
[2021-03-31] MEDS ORDERED: ONDANSETRON 4 MG/2 ML VIAL IM/IVP PRN (14:45)
[2021-03-31] MEDS ORDERED: HYDROcodone/APAP 5/325 MG 1 TAB TAB PO PRN (14:45)
[2021-03-31] MEDS ORDERED: ACETAMINOPHEN 325 MG TAB PO PRN (14:45)
[2021-03-31] MEDS ORDERED: DOCUSATE SODIUM 100 MG GELCAP PO PRN (14:45)
[2021-03-31] MEDS ORDERED: MORPHINE SULFATE 2 MG/ML SYR IVP PRN (14:45)
[2021-03-31] MEDS ORDERED: LORazepam 2 MG/ML VIAL IM/IVP PRN (14:45)
[2021-03-31] MEDS ORDERED: ZOLPIDEM 5 MG TAB PO PRN (14:45)
[2021-03-31] MEDS ORDERED: LOVENOX 1MG/KG Q24H SUBQ SCH (15:05)
[2021-03-31] MEDS ORDERED: ENOXAPARIN 40 MG/0.4 ML SYR SUBQ SCH (15:15)
--- NOTE | 2021-03-31 15:20 | NUR ---
ADMINISTERED K PHOS AND MAG RIDER. WILL CONTINUE TO MONITOR.
[2021-03-31] MEDS ORDERED: POTASSIUM PHOSPHATE 15 MM in NACL 0.9% 250 ML IV SCH (15:30)
[2021-03-31 16:44] LABS: ANION GAP 15.7 (8-16); CARBON DIOXIDE 16.2 mmol/L (21-32)
[2021-03-31 16:47] LABS: POTASSIUM 2.9 mmol/L (3.5-5.1); PROTHROMBIN TIME 10.3 secs (10.8-13.4)
[2021-03-31 16:50] LABS: CHOL/HDL RATIO 6.3 (1-4.5)
--- NOTE | 2021-03-31 17:00 | NUR ---
PATIENT OFF UNIT. WENT WITH PATIENT TO CT. WILL CONTINUE TO MONITOR.
[2021-03-31 17:15] LABS: PHOSPHORUS 0.6 mg/dL (2.5-4.9)
--- NOTE | 2021-03-31 17:20 | NUR ---
PATIENT RETURNED FROM CT. HYGIENE CARE, ORAL CARE, INCONTINENCE CARE, AND CHG BATH PROVIDED. LINEN AND GOWN CHANGED WILL CONTINUE TO MONITOR.
--- NOTE | 2021-03-31 18:28 | NUR ---
CHECKED ON PATIENT. NO SIGNS OF DISTRESS. DENIES PAIN. WILL CONTINUE TO MONITOR.
--- NOTE | 2021-03-31 19:09 | NUR ---
ENDORSED CARE TO SAMPSON RN FOR CONTINUITY OF CARE.
--- NOTE | 2021-03-31 19:15 | NUR ---
RECEIVED PATIENT IN BED, ALERT AND ORIENTED, MOVE LIMBS FREELY. BREATHING EVEN AND UNLABORED ON ROOM AIR. CARDIAC SCOPE SHOWS ON SINUS RHYTHM HR 79/MIN, NO ARRHYTHMIAS SEE. COMMENCING ON INSULIN DRIP AT 0.1 UNITS/KG/HR WHICH IS REGULATED ACCORDING TO DKA PROTOCOL. ABDOMEN IS SOFT, ACTIVE BOWEL SOUNDS.
[2021-03-31] MEDS: DEXT 5% / NACL 0.45% 1,000 ML IV SCH (20:00)
[2021-03-31 20:57] LABS: CREATININE 0.9 mg/dL (0.6-1.3)
[2021-03-31 20:58] LABS: MAGNESIUM 2.3 mg/dL (1.8-2.4); PHOSPHORUS 1.2 mg/dL (2.5-4.9)
[2021-03-31] MEDS: KCL 20 MEQ/WATER INJ PREMIX 200 ML IV PRN (23:20)
[2021-04-01] VITALS (18 sets, daily range): BP systolic 121–160; BP diastolic 58–79
--- NOTE | 2021-04-01 | NUR ---
BLOOD SUGAR MONITORED HOURLY PER DKA PROTOCOL.
[2021-04-01 00:40] LABS: CARBON DIOXIDE 17.8 mmol/L (21-32); CREATININE 0.9 mg/dL (0.6-1.3)
[2021-04-01 00:41] LABS: POTASSIUM 2.8 mmol/L (3.5-5.1)
[2021-04-01 00:43] LABS: MAGNESIUM 2.1 mg/dL (1.8-2.4); PHOSPHORUS 1.3 mg/dL (2.5-4.9)
[2021-04-01] MEDS: BLOOD GLUCOSE MONITORING 1 DEV DEV FS SCH ×24 (01:00→23:40)
[2021-04-01] MEDS: INSULIN REGULAR, HUMAN 100 UNIT in NACL 0.9% 100 ML IV SCH ×2 (03:30)
--- NOTE | 2021-04-01 04:30 | NUR ---
MORNING BED DONE WITH MODERATE ASSISTANCE.
[2021-04-01 06:44] LABS: ANION GAP 13.1 (8-16); CARBON DIOXIDE 19.1 mmol/L (21-32); POTASSIUM 3.2 mmol/L (3.5-5.1)
[2021-04-01 06:59] LABS: MAGNESIUM 1.9 mg/dL (1.8-2.4)
[2021-04-01 07:18] LABS: PHOSPHORUS 1.1 mg/dL (2.5-4.9)
--- NOTE | 2021-04-01 07:45 | NUR ---
RECEIVED REPORT FROM SUSTAINABILITY EXECUTIVE DIRECTOR RN FOR CONTINUITY OF CARE. AOX2. SR ON MONITOR. ON ROOM AIR, SATURATING AT 100%. SKIN INTACT. IVS CLEAN, DRY, AND INTACT, ON RAC 20G INFUSING INSULIN DRIP AT 0.1 UNITS/KG/ HR, AND ON LAC 20G INFUSING NS 0.9 AT 200 ML/HR. ON DKA PROTOCOL LAST BLOOD SUGAR, 225. RADIO EQUIPMENT INSTALLER, PULSE OXIMETER, AND SAFETY MEASURES IN PLACE. WILL CONTINUE TO MONITOR
[2021-04-01] MEDS: DEXT 5% / NACL 0.45% 1,000 ML IV SCH ×5 (07:55→22:15)
--- NOTE | 2021-04-01 08:05 | NUR ---
PT REFUSED ABG NURSE MADE AWARE. WILL OBTAIN VBG.
[2021-04-01] MEDS: SODIUM PHOS / POTASSIUM PHOS 1 PKT PDR PO SCH ×3 (09:00→16:39)
[2021-04-01] MEDS: ENOXAPARIN 40 MG/0.4 ML SYR SUBQ SCH (09:00)
[2021-04-01 09:08] LABS: BASOPHILS # (AUTO) 0.1 K/uL (0.00-0.22); BASOPHILS % (AUTO) 0.6 % (0.0-2.0); EOSINOPHILS # (AUTO) 0.1 K/uL (0-0.4); EOSINOPHILS % (AUTO) 0.5 % (0.0-4.0); HEMATOCRIT 41.6 % (36-48); HEMOGLOBIN 13.6 g/dL (12.0-16.0); LYMPHOCYTES # (AUTO) 1.4 K/uL (2.5-16.5); LYMPHOCYTES % (AUTO) 12.4 % (20.5-51.1); MEAN CORPUSCULAR HEMOGLOBIN 27 pg (27-31); MEAN CORPUSCULAR HGB CONC 33 g/dL (33-37); MEAN CORPUSCULAR VOLUME 83.2 fL (80-94); MONOCYTES # (AUTO) 0.3 K/uL (0.8-1.0); MONOCYTES % (AUTO) 2.6 % (1.7-9.3); NEUTROPHILS # (AUTO) 9.3 K/uL (1.8-7.7); NEUTROPHILS % (AUTO) 83.9 % (42.2-75.2); PLATELET COUNT (AUTO) 170 K/uL (140-450); RED CELL DISTRIBUTION WIDTH 14.7 % (11.6-13.7); WHITE BLOOD COUNT (AUTO) 11.1 K/uL (4.8-10.8)
[2021-04-01 09:21] LABS: ANION GAP 16.6 (8-16); CARBON DIOXIDE 15.8 mmol/L (21-32); CREATININE 0.9 mg/dL (0.6-1.3); POTASSIUM 3.4 mmol/L (3.5-5.1)
[2021-04-01 09:26] LABS: MAGNESIUM 1.9 mg/dL (1.8-2.4); PHOSPHORUS 1.3 mg/dL (2.5-4.9)
[2021-04-01] MEDS ORDERED: POTASSIUM PHOSPHATE 15 MM in NACL 0.9% 250 ML IV SCH (09:30)
--- NOTE | 2021-04-01 10:00 | NUR ---
ADMINISTERED SCHED MED PRESCRIBED PER MD ORDER. PT TOLERATED WELL. MEDICATION EDUCATION PERFORMED. PT VERBALIZED UNDERSTANDING BUT NEEDS REINFORCEMENT. SAFETY MEASURES IN PLACE. WILL CONTINUE TO MONITOR
--- NOTE | 2021-04-01 10:56 | NUR ---
OBTAINED COVID JEY SWAB PER MD ORDER. PT TOLERATED FAIRLY. EDUCATED PT ON IMPORTANCE OF COVID PREVENTION. PT NEEDS MORE REINFORCEMENT. SAFETY MEASURES IN PLACE. WILL CONTINUE TO MONITOR
--- NOTE | 2021-04-01 12:05 | NUR ---
PT NEEDS TO USE BEDPAN. ASSISTED PT ON AND OFF BEDPAN. PT TOLERATED WELL. SAFETY MEASURES IN PLACE. WILL CONTINUE TO MONITOR
--- NOTE | 2021-04-01 13:15 | NUR ---
CALL PLACE TO JONAS [phone] MESSAGE PATIENT REFUSINGPIC Addendum: 04/01/21 at 1317 by Nimo Richter RN REFUSING PICCLINE INSERTION ,REANNA BOSTON
--- NOTE | 2021-04-01 13:51 | NUR ---
PICCLINE NURSE CALLED, AWARE OF THE ORDER,
[2021-04-01 14:10] LABS: ANION GAP 19.9 (8-16); CARBON DIOXIDE 15.6 mmol/L (21-32); CREATININE 0.8 mg/dL (0.6-1.3); POTASSIUM 3.5 mmol/L (3.5-5.1)
--- NOTE | 2021-04-01 14:10 | NUR ---
RECEIVED TORB FROM DR. MARQUIS TO START PT ON CCHO DIET. CHAO RODRIGUEZ WAS NOTIFIED AND CONFIRMED REGULAR TEXTURE APPROPRIATE FOR PATIENT.
--- NOTE | 2021-04-01 14:25 | NUR ---
04/01/21 RD INITIAL ASSESSMENT COMPLETED PLEASE REFER TO NUTRITION ASSESSMENT UNDER CARE ACTIVITY FOR ESTIMATED NUTRITIONAL NEEDS. 1. RECOMMENDED [facility] DIET TOLERATED 2. PROVIDED DIABETES NUTRITION EDUCATION HANDOUTS 3. RD TO FOLLOW-UP 3-5 DAYS, MODERATE RISK MAHAMED VARNER RD
--- NOTE | 2021-04-01 14:30 | NUR ---
PT AT BEDSIDE EVALUATING PATIENT
--- NOTE | 2021-04-01 15:05 | NUR ---
DC PLANNING: NICHOLE SPOKE WITH LUDIVINA AT [facility] ([phone]), HE STATES THAT [facility] IS AT FULL CAPACITY FOR HOSPITAL BEDS IN [facility] AND THAT PATIENT DOESN'T NEED TO TRANSFER. PATIENT WITH CONTINUED AUTH, CASE # [id number]. CM WILL FOLLOW FOR NEEDS. Addendum: 04/02/21 at 1537 by Nasra Lindsay RN DC PLANNING: [facility] [phone], [phone] WAS ON HOLD FOR MORE THAN 45 MIN, UNABLE TO TALK TO ANYONE OR TO LEAVE MESSAGE. CM TO FOLLOW Addendum: 04/04/21 at 1409 by Nasra Lindsay RN LATE ENTRY: 04/03/21 1130 CALLED [facility] X2 ON HOLD FOR LONG TIME MORE THAN 45 MIN NO ONE ANSWERING TO LEAVE A MESSAGE. CM TO FOLLOW Addendum: 04/04/21 at 1522 by Nasra Lindsay RN dc planning: Call placed to [facility] today at [phone] at 10:55 AM: Spoke with Lisa. Status: Pending. No documentation missing and business banking representative states to keep sending daily faxes with patient updates. They are not requesting transfers because there's no beds available and to please keep the patient. Auth#[id number].cm to follow
--- NOTE | 2021-04-01 16:15 | NUR ---
PT RESTING IN BED. ABLE TO MAKE NEEDS KNOWN. RESPIRATIONS EVEN AND UNLABORED WITH NO SOB OR RESPIRATORY DISTRESS. SAFETY MEASURES IN PLACE. WILL CONTINUE TO MONITOR
[2021-04-01 16:46] LABS: MAGNESIUM 1.7 mg/dL (1.8-2.4); PHOSPHORUS 2.2 mg/dL (2.5-4.9)
--- NOTE | 2021-04-01 17:06 | NUR ---
PT NEEDS BEDPAN. BEDPAN GIVEN TO PATIENT. PT TOLERATED WELL. SAFETY MEASURES IN PLACE. WILL CONTINUE TO MONITOR
--- NOTE | 2021-04-01 18:00 | NUR ---
PICC LINE NURSE FAUSTINO SAID HE WILL BE HERE AT 1900. SAFETY MEASURES IN PLACE. WILL CONTINUE TO MONITOR
[2021-04-01 18:45] LABS: ANION GAP 23.5 (8-16); CARBON DIOXIDE 11.9 mmol/L (21-32); CREATININE 0.9 mg/dL (0.6-1.3); POTASSIUM 3.4 mmol/L (3.5-5.1)
--- NOTE | 2021-04-01 19:12 | NUR ---
PICC LINE NURSE FAUSTINO HERE. REPORT AND SUPPLIES GIVEN. SAFETY MEASURES IN PLACE. WILL CONTINUE TO MONITOR
--- NOTE | 2021-04-01 19:15 | NUR ---
RECEIVED REPORT FROM MORNING SHIFT RN FOR CONTINUITY OF CARE. PT IS AAOX4, ON ROOM AIR, BEDREST, CONTINENT, BEDPAN, SR ON MONITOR, SKIN IS INTACT. IVS CLEAN, DRY, AND INTACT, ON RAC 20G, HAS RIGHT PICC, INFUSING INSULIN DRIP AT 0.1 UNITS/KG/ HR, ON DKA PROTOCOL. ON LAB AIDE, PULSE OXIMETER, AND SAFETY MEASURES IN PLACE, ON COVID PRECAUTION FOR PUI COVID 19. WILL CONTINUE TO MONITOR
--- NOTE | 2021-04-01 19:28 | NUR ---
ENDORSED TO NIGHTSHIFT NURSE FOR CONTINUITY OF CARE
[2021-04-01 21:03] LABS: ANION GAP 21.8 (8-16); CARBON DIOXIDE 13.6 mmol/L (21-32); CREATININE 0.9 mg/dL (0.6-1.3); POTASSIUM 3.4 mmol/L (3.5-5.1)
[2021-04-01 21:05] LABS: MAGNESIUM 1.6 mg/dL (1.8-2.4); PHOSPHORUS 2.5 mg/dL (2.5-4.9)
--- NOTE | 2021-04-01 22:15 | NUR ---
D5 1/2 NS @200ML WAS NOT ADMINISTERED DUE TO DKA ON INSULIN DRIP
[2021-04-02] VITALS (19 sets, daily range): BP systolic 114–157; BP diastolic 39–79
[2021-04-02] MEDS: BLOOD GLUCOSE MONITORING 1 DEV DEV FS SCH ×23 (00:29→23:10)
[2021-04-02 00:34] LABS: ANION GAP 21.7 (8-16); CARBON DIOXIDE 13.8 mmol/L (21-32); POTASSIUM 3.5 mmol/L (3.5-5.1)
[2021-04-02 00:37] LABS: MAGNESIUM 1.7 mg/dL (1.8-2.4); PHOSPHORUS 2.9 mg/dL (2.5-4.9)
--- NOTE | 2021-04-02 02:15 | NUR ---
CALLED DR MARQUIS TO LET HER KNOW THAT BS IS ALWAYS AROUND 300'S, ASKED DR MARQUIS FOR IVF NS INSTEAD OF D5 1/2 NS@200. LEFT A MESSAGE, WAITING HER TO CALL BACK
[2021-04-02] MEDS: DEXT 5% / NACL 0.45% 1,000 ML IV SCH ×2 (03:15→19:50)
--- NOTE | 2021-04-02 03:15 | NUR ---
D5 1/2 NS @200ML WAS NOT ADMINISTERED DUE TO DKA ON INSULIN DRIP
[2021-04-02 06:41] LABS: ANION GAP 24.1 (8-16); CARBON DIOXIDE 12.6 mmol/L (21-32); CREATININE 1.1 mg/dL (0.6-1.3); POTASSIUM 3.7 mmol/L (3.5-5.1)
[2021-04-02 07:00] LABS: MAGNESIUM 1.8 mg/dL (1.8-2.4)
--- NOTE | 2021-04-02 07:32 | NUR ---
CALLED DR BANEGAS FOR HGB6.9, WAITING FOR CARRANZA TO CALL BACK Addendum: 04/02/21 at 0733 by Rosa Mayen RN WRONG PATIENT
--- NOTE | 2021-04-02 07:45 | NUR ---
RECEIVED PATIEN AWAKE, COMFORTABLE IN BED. PT IS AAOX4, ON ROOM AIR, BEDREST, CONTINENT, BEDPAN, SR ON MONITOR, SKIN IS INTACT. IVS CLEAN, DRY, AND INTACT, ON RAC 20G, HAS RIGHT PICC, INFUSING INSULIN DRIP AT 0.1 UNITS/KG/ HR, ON DKA PROTOCOL. ON MACHINE CLOTHING REPLACER, PULSE OXIMETER, AND SAFETY MEASURES IN PLACE, ON COVID PRECAUTION FOR PUI COVID 19. WILL CONTINUE TO MONITOR.
[2021-04-02] MEDS: NACL 0.9% 1,000 ML IV SCH ×3 (08:40→22:00)
[2021-04-02] MEDS: ENOXAPARIN 40 MG/0.4 ML SYR SUBQ SCH (09:24)
[2021-04-02] MEDS: SODIUM PHOS / POTASSIUM PHOS 1 PKT PDR PO SCH ×3 (09:30→17:00)
[2021-04-02 09:35] LABS: BASOPHILS % (AUTO) 0.3 % (0.0-2.0); EOSINOPHILS % (AUTO) 0.3 % (0.0-4.0); HEMATOCRIT 33.1 % (36-48); HEMOGLOBIN 11.1 g/dL (12.0-16.0); LYMPHOCYTES # (AUTO) 1.1 K/uL (2.5-16.5); LYMPHOCYTES % (AUTO) 11.7 % (20.5-51.1); MEAN CORPUSCULAR HEMOGLOBIN 28 pg (27-31); MEAN CORPUSCULAR HGB CONC 33 g/dL (33-37); MEAN CORPUSCULAR VOLUME 82.4 fL (80-94); MONOCYTES # (AUTO) 0.4 K/uL (0.8-1.0); MONOCYTES % (AUTO) 4.3 % (1.7-9.3); NEUTROPHILS # (AUTO) 8.2 K/uL (1.8-7.7); NEUTROPHILS % (AUTO) 83.4 % (42.2-75.2); PLATELET COUNT (AUTO) 238 K/uL (140-450); RED BLOOD CELL COUNT(AUTO) 4.02 MIL/uL (4.20-5.40); RED CELL DISTRIBUTION WIDTH 14.7 % (11.6-13.7); WHITE BLOOD COUNT (AUTO) 9.9 K/uL (4.8-10.8)
[2021-04-02 09:39] LABS: ANION GAP 19.8 (8-16); CARBON DIOXIDE 16.4 mmol/L (21-32); POTASSIUM 3.2 mmol/L (3.5-5.1)
[2021-04-02 09:42] LABS: MAGNESIUM 1.9 mg/dL (1.8-2.4); PHOSPHORUS 2.3 mg/dL (2.5-4.9)
[2021-04-02 13:21] LABS: ANION GAP 13.7 (8-16); CARBON DIOXIDE 20.4 mmol/L (21-32); CREATININE 0.9 mg/dL (0.6-1.3); POTASSIUM 3.1 mmol/L (3.5-5.1)
[2021-04-02 13:26] LABS: MAGNESIUM 1.9 mg/dL (1.8-2.4); PHOSPHORUS 2.8 mg/dL (2.5-4.9)
--- NOTE | 2021-04-02 15:32 | NUR ---
BS [address] GONCALVES MADE AWARE. ORDERED TO START D5NS @ 40ML/HR, DECREASE INSULIN DRIP TO 0.05 AND MONITOR BS HOURLY.
--- NOTE | 2021-04-02 19:30 | NUR ---
RECEIVED BEDSIDE REPORT FROM DAY SHIFT NURSE, PATIENT IS AWAKE AND COOPERATIVE. RESPIRATION EVEN UNLABORED ON ROOM AIR. NO DISTRESS NOTED. SKIN IS WARM AND DRY. RIGHT UPPER ARM PICC LINE NOTED. INSULIN DRIP INFUSING RUNNING AT 0.05 UNITS/HR AND D5 1/2NS @ 40ML/HR. PLAN OF CARE WAS DISCUSSED. ALL SAFETY MEASURES IN PLACE. BED IS AT LOW POSITION. CALL LIGHT WITHIN REACH. WILL CONTINUE TO MONITOR.
--- NOTE | 2021-04-02 20:00 | NUR ---
CALLED LAB TO FOLLOW UP WITH BMP RESULT THAT WAS DRAWN AT 1630 PER LAB NO RESULTS YET. HINGING MACHINE OPERATOR IS HERE FOR 2000 DRAW.
--- NOTE | 2021-04-02 20:24 | NUR ---
INITIAL ASSESSMENT DONE
[2021-04-02 21:02] LABS: ANION GAP 12.5 (8-16); CARBON DIOXIDE 22.3 mmol/L (21-32); CREATININE 0.8 mg/dL (0.6-1.3)
[2021-04-02 21:04] LABS: POTASSIUM 2.8 mmol/L (3.5-5.1)
[2021-04-02] MEDS: KCL 20 MEQ/WATER INJ PREMIX 200 ML IV PRN (21:10)
--- NOTE | 2021-04-02 21:10 | NUR ---
PATIENT POTASSIUM LEVEL 2.8, PRN K-RIDER GIVEN PER ORDER. WILL CONTINUE TO MONITOR.
[2021-04-02] MEDS ORDERED: POTASSIUM CHLORIDE 10 MEQ TABER PO ONE (22:00)
--- NOTE | 2021-04-02 22:00 | NUR ---
NOTIFIED MD REGARDING PATIENT RECEIVING 40MEQ K-RIDER, PER MD NO NEED TO GIVE 40MEQ OF K-DUR
[2021-04-03] VITALS (17 sets, daily range): BP systolic 102–154; BP diastolic 51–80
[2021-04-03] MEDS ORDERED: BENZONATATE 100 MG CAPLF PO PRN (00:10)
--- NOTE | 2021-04-03 00:45 | NUR ---
PATIENT COMPLAINED OF COUGH, PRN COUGH GIVEN PER ORDER. WILL CONTINUE TO MONITOR.
--- NOTE | 2021-04-03 01:00 | NUR ---
PT PROVIDED WITH LUNCH KIN, EATING AT THIS TIME Addendum: 04/03/21 at 1323 by Darek Richter RN DOCUMENTED ON WRONG TIME, PLS DISREGARD
[2021-04-03] MEDS: BLOOD GLUCOSE MONITORING 1 DEV DEV FS SCH ×7 (01:02→23:58)
[2021-04-03 01:24] LABS: ANION GAP 15.2 (8-16); CARBON DIOXIDE 21.2 mmol/L (21-32); CREATININE 0.8 mg/dL (0.6-1.3); POTASSIUM 3.4 mmol/L (3.5-5.1)
[2021-04-03] MEDS: DEXT 5% / NACL 0.45% 1,000 ML IV SCH (02:06)
[2021-04-03] MEDS: KCL 20 MEQ/WATER INJ PREMIX 200 ML IV PRN ×2 (02:07→21:16)
--- NOTE | 2021-04-03 02:26 | NUR ---
PATIENT POTASSIUM 3.4, PRN K-RIDER GIVEN PER ORDER. WILL CONTINUE TO MONITOR
--- NOTE | 2021-04-03 04:38 | NUR ---
PATIENT REFUSED AM CARE
[2021-04-03] MEDS: NACL 0.9% 1,000 ML IV SCH ×2 (04:40→11:26)
[2021-04-03 06:27] LABS: MAGNESIUM 1.6 mg/dL (1.8-2.4); PHOSPHORUS 2.5 mg/dL (2.5-4.9)
[2021-04-03 06:28] LABS: ANION GAP 11.4 (8-16); CARBON DIOXIDE 23.2 mmol/L (21-32); CREATININE 0.7 mg/dL (0.6-1.3); POTASSIUM 3.6 mmol/L (3.5-5.1)
[2021-04-03] MEDS: MAG SULF 2000 MG/WATER PREMIX 50 ML IV PRN (06:46)
--- NOTE | 2021-04-03 06:59 | NUR ---
AM LABS DRAWN, PATIENT MAGNESIUM 1.6, PRN MAGNESIUM GIVEN PER ORDER. WILL CONTINUE TO MONITOR
--- NOTE | 2021-04-03 07:14 | NUR ---
ENDORSED PATIENT TO DAY SHIFT NURSE AT BEDSIDE FOR CONTINUITY OF CARE
--- NOTE | 2021-04-03 07:14 | NUR ---
REPORT RECEIVED FROM PM SHIFT RN FOR CONTINUITY OF CARE. PT IS A&OX3. ON ROOM AIR. SR ON MONITOR. IV SITE ADDIE PICC LINE INFUSING INSULIN 0.05 UNITS/HR, D5 0.45NS AT 40 ML/HR AND MAGNESIUM 25ML/HR. SKIN WARM AND DRY, INTACT. HOB 30 DEGREES. CALL LIGHT WITHIN REACH. BED LOCKED IN LOWEST POSITION. SAFETY PRECAUTIONS IN PLACE. WILL CONTINUE TO MONITOR.
[2021-04-03] MEDS: SODIUM PHOS / POTASSIUM PHOS 1 PKT PDR PO SCH ×3 (08:27→17:13)
[2021-04-03] MEDS: ENOXAPARIN 40 MG/0.4 ML SYR SUBQ SCH (08:29)
--- NOTE | 2021-04-03 09:19 | NUR ---
PT PROVIDED WITH BREAKFAST TRAY, EATING AT THIS TIME
[2021-04-03 09:36] LABS: BASOPHILS % (AUTO) 0.7 % (0.0-2.0); EOSINOPHILS # (AUTO) 0.1 K/uL (0-0.4); EOSINOPHILS % (AUTO) 2.2 % (0.0-4.0); HEMATOCRIT 29.5 % (36-48); HEMOGLOBIN 9.9 g/dL (12.0-16.0); LYMPHOCYTES # (AUTO) 1.5 K/uL (2.5-16.5); MEAN CORPUSCULAR HEMOGLOBIN 28 pg (27-31); MEAN CORPUSCULAR HGB CONC 34 g/dL (33-37); MEAN CORPUSCULAR VOLUME 82.1 fL (80-94); MONOCYTES # (AUTO) 0.6 K/uL (0.8-1.0); MONOCYTES % (AUTO) 9.5 % (1.7-9.3); NEUTROPHILS # (AUTO) 4.5 K/uL (1.8-7.7); NEUTROPHILS % (AUTO) 65.6 % (42.2-75.2); PLATELET COUNT (AUTO) 239 K/uL (140-450); RED BLOOD CELL COUNT(AUTO) 3.59 MIL/uL (4.20-5.40); RED CELL DISTRIBUTION WIDTH 14.5 % (11.6-13.7); WHITE BLOOD COUNT (AUTO) 6.8 K/uL (4.8-10.8)
[2021-04-03 09:51] LABS: ANION GAP 13.2 (8-16); CREATININE 0.7 mg/dL (0.6-1.3); POTASSIUM 3.2 mmol/L (3.5-5.1)
--- NOTE | 2021-04-03 10:36 | NUR ---
PT REQUESTING FOR BATHROOM, PT PLACED ON BEDPAN. 1 VOID. PT CLEANED. REPOSITIONED FOR COMFORT. CALL LIGHT WITHIN REACH, WILL CONTINUE TO MONITOR.
[2021-04-03] MEDS ORDERED: BLOOD GLUCOSE MONITORING 1 DEV DEV FS SCH ×2 (12:00→16:30)
[2021-04-03 12:06] LABS: ANION GAP 11.1 (8-16); CARBON DIOXIDE 23.3 mmol/L (21-32); CREATININE 0.7 mg/dL (0.6-1.3); POTASSIUM 3.4 mmol/L (3.5-5.1)
--- NOTE | 2021-04-03 13:00 | NUR ---
PT PROVIDED WITH LUNCH TRAY, EATING AT THIS TIME
--- NOTE | 2021-04-03 13:30 | NUR ---
INSULIN DRIP D/C'd per Dr Geno brambila.
[2021-04-03 16:24] LABS: ANION GAP 18.9 (8-16); CARBON DIOXIDE 18.8 mmol/L (21-32); CREATININE 0.7 mg/dL (0.6-1.3); POTASSIUM 3.7 mmol/L (3.5-5.1)
[2021-04-03] MEDS ORDERED: INSULIN REGULAR, HUMAN 100 UNIT in NACL 0.9% 100 ML IV SCH ×4 (16:55→17:10)
[2021-04-03] MEDS ORDERED: DEXT 5% / NACL 0.45% 1,000 ML IV SCH (16:55)
--- NOTE | 2021-04-03 17:00 | NUR ---
PT'S ANION GAP IS 18.[address] GONCALVES. ORDERS TO RESTART ON INSULIN DRIP. Addendum: 04/03/21 at 1843 by Darek Richter RN ACCU CHECK AT 1700 IS 157
--- NOTE | 2021-04-03 18:17 | NUR ---
PT PROVIDED WITH DINNER TRAY, EATING AT THIS TIME
--- NOTE | 2021-04-03 19:15 | NUR ---
REPORT GIVEN TO PM SHIFT RN FOR CONTINUITY OF CARE
--- NOTE | 2021-04-03 19:45 | NUR ---
REPORT RECEIVED FROM AM SHIFT RN . PT IS ALERT ORIENTED X 3,NO S/S OF RESP DISTRESS, NO SOB, NO C/O PAIN.CONT ON ROOM AIR SPO2 98%. SR ON MONITOR. IV SITE ADDIE PICC LINE INFUSING INSULIN 0.05 UNITS/HR, D5 0.45NS AT 40 ML/HR .PERIPHERAL IV LINE RAC NO 20 GAUGE SALINE FLUSH. SKIN WARM AND DRY, SKIN INTACT. ABD SOFT NON DISTENDED,HOB 30 DEGREES. CALL LIGHT WITHIN REACH. BED LOCKED IN LOWEST POSITION. SAFETY PRECAUTIONS IN PLACE. WILL CONTINUE TO MONITOR.
[2021-04-03 20:59] LABS: ANION GAP 10.5 (8-16); CARBON DIOXIDE 23.9 mmol/L (21-32); CREATININE 0.7 mg/dL (0.6-1.3); POTASSIUM 3.4 mmol/L (3.5-5.1)
[2021-04-03] MEDS ORDERED: INSULIN LANTUS 100 UNITS/ML 10 ML VIAL SUBQ SCH (21:00)
--- NOTE | 2021-04-03 21:00 | NUR ---
DR.DAVID GONCALVES MADE AWARE THAT PT ANION GAP 10.5 . BLOOD SUGAR AT THIS TIME 189 ASK MD HOW IS THE FLUIDS IF FOLLOWING INSULIN DRIPS PROTOCOL OR CONT SAME ORDER. PER MD TO CONT NS AT 20 CC/HR AND D5 IN 1/2 NS AT 40 CC/HR AND CONT THE INSULIN DRIPS AT 0.05 UNITS/KG/HR.
--- NOTE | 2021-04-03 21:41 | NUR ---
PLACED CALL TEXTILE SUPERVISOR MADE AWARE THAT ANION GAP IS 10.5 AND PT CONT ON INSULIN DRIPS 0.05UNITS/KG/HR. BLOOD SUGAR NOW 166. PER MD TO CONT BLOOD SUGAR CHECK Q 4 HOURS. NOT PER PROTOCOL BUT PER PREVIOUS ORDER.
--- NOTE | 2021-04-03 21:51 | NUR ---
K 3.4 K RIDER PRN GIVEN ORDER
[2021-04-04] VITALS (14 sets, daily range): BP systolic 114–141; BP diastolic 53–89
[2021-04-04 00:27] LABS: ANION GAP 12.6 (8-16); CARBON DIOXIDE 24.1 mmol/L (21-32); CREATININE 0.7 mg/dL (0.6-1.3); POTASSIUM 3.7 mmol/L (3.5-5.1)
--- NOTE | 2021-04-04 00:50 | NUR ---
ANION GAP 12.[address] MCADAMS AWARE. PER CONT INSULIN DRIPS FOR NOW.
--- NOTE | 2021-04-04 02:30 | NUR ---
PT SLEEP WELL
[2021-04-04] MEDS: BLOOD GLUCOSE MONITORING 1 DEV DEV FS SCH ×5 (04:00→20:57)
--- NOTE | 2021-04-04 04:00 | NUR ---
BMP DRAWN NO RESULT YET. FINGER STICK BLOOD SUGAR 117. PT SLEEPING
--- NOTE | 2021-04-04 06:45 | NUR ---
PT C/O THE ROOM VERY COLD, 6 BLANKETS WAS GIVEN TO COVER PT. WILL F/U IN AM WITH ENGENERING.
[2021-04-04 07:05] LABS: ANION GAP 11.2 (8-16); CARBON DIOXIDE 26.6 mmol/L (21-32); CREATININE 0.7 mg/dL (0.6-1.3); POTASSIUM 3.8 mmol/L (3.5-5.1)
--- NOTE | 2021-04-04 07:15 | NUR ---
REPORT RECEIVED FROM SPECIAL EDUCATION PARA PROFESSIONAL RN . PT IS AOX3, ON ROOM AIR, SPO2 98%. SR ON MONITOR. IV CLEAN, DRY, INTACT ON ADDIE PICC LINE INFUSING INSULIN 0.05 UNITS/HR, D5 0.45NS AT 40 ML/HR, NS AT 20ML/HR AND ON RAC 20 GAUGE SALINE LOCKED. SKIN INTACT. RAILWAY HEAD TENDER, PULSE OXIMETER, AND SAFETY MEASURES IN PLACE. HOB 30 DEGREES, BED LOCKED, BED IN LOW POSITION. CALL LIGHT WITHIN REACH. WILL CONTINUE TO MONITOR.
--- NOTE | 2021-04-04 07:31 | NUR ---
REPORT GIVEN TO ALEXYS. PT IS STABLE
--- NOTE | 2021-04-04 08:00 | NUR ---
DR. ABBE DELGADO. UPDATED ON PATIENT STATUS AND CONDITION. AWARE PATIENT'S ANION GAP CLOSED. WILL CONTINUE TO MONITOR.
[2021-04-04] MEDS: SODIUM PHOS / POTASSIUM PHOS 1 PKT PDR PO SCH ×3 (08:05→17:55)
[2021-04-04] MEDS: ENOXAPARIN 40 MG/0.4 ML SYR SUBQ SCH ×2 (08:07→08:40)
--- NOTE | 2021-04-04 08:15 | NUR ---
ADMINISTERED AM MEDICATION. PATIENT REFUSED LOVENOX, RISK BENEFITS EXPLAINED, PATIENT STILL REFUSED. ORAL CARE, HYGIENE CARE, AND CHG BATH PROVIDED. NO SIGNS OF DISTRESS, DENIES PAIN. CALL LIGHT WITHIN REACH. WILL CONTINUE TO MONITOR.
[2021-04-04 09:09] LABS: MAGNESIUM 1.9 mg/dL (1.8-2.4); PHOSPHORUS 4.4 mg/dL (2.5-4.9)
[2021-04-04 09:39] LABS: BASOPHILS # (AUTO) 0.1 K/uL (0.00-0.22); BASOPHILS % (AUTO) 1.1 % (0.0-2.0); EOSINOPHILS # (AUTO) 0.2 K/uL (0-0.4); EOSINOPHILS % (AUTO) 3.7 % (0.0-4.0); HEMATOCRIT 26.9 % (36-48); HEMOGLOBIN 8.8 g/dL (12.0-16.0); LYMPHOCYTES # (AUTO) 1.8 K/uL (2.5-16.5); LYMPHOCYTES % (AUTO) 39.2 % (20.5-51.1); MEAN CORPUSCULAR HEMOGLOBIN 28 pg (27-31); MEAN CORPUSCULAR HGB CONC 33 g/dL (33-37); MEAN CORPUSCULAR VOLUME 83.8 fL (80-94); MONOCYTES # (AUTO) 0.8 K/uL (0.8-1.0); MONOCYTES % (AUTO) 16.3 % (1.7-9.3); NEUTROPHILS # (AUTO) 1.9 K/uL (1.8-7.7); NEUTROPHILS % (AUTO) 39.7 % (42.2-75.2); PLATELET COUNT (AUTO) 278 K/uL (140-450); RED BLOOD CELL COUNT(AUTO) 3.21 MIL/uL (4.20-5.40); RED CELL DISTRIBUTION WIDTH 14.8 % (11.6-13.7); WHITE BLOOD COUNT (AUTO) 4.7 K/uL (4.8-10.8)
[2021-04-04 09:48] LABS: ANION GAP 13.1 (8-16); CARBON DIOXIDE 24.5 mmol/L (21-32); CREATININE 0.7 mg/dL (0.6-1.3); POTASSIUM 3.6 mmol/L (3.5-5.1)
--- NOTE | 2021-04-04 10:05 | NUR ---
CHECKED ON PATIENT, NO SIGNS OF DISTRESS. DENIES PAIN. WILL CONTINUE TO MONITOR.
--- NOTE | 2021-04-04 11:15 | NUR ---
CHECKED ON PATIENT. NO SIGNS OF DISTRESS. DENIES PAIN. WILL CONTINUE TO MONITOR.
[2021-04-04] MEDS: NACL 0.9% 1,000 ML IV SCH (11:20)
--- NOTE | 2021-04-04 12:00 | NUR ---
CHECKED PATIENT BLOOD SUGAR, 107. ON INSULIN DRIP. WILL CONTINUE TO MONITOR.
[2021-04-04 12:40] LABS: ANION GAP 9.8 (8-16); CARBON DIOXIDE 27.9 mmol/L (21-32); CREATININE 0.6 mg/dL (0.6-1.3); POTASSIUM 3.7 mmol/L (3.5-5.1)
--- NOTE | 2021-04-04 13:33 | NUR ---
PHYSICAL THERAPY AT BEDSIDE
--- NOTE | 2021-04-04 13:53 | NUR ---
CHECKED ON PATIENT. NO SIGNS OF DISTRESS. DENIES PAIN. WILL CONTINUE TO MONITOR.
--- NOTE | 2021-04-04 15:45 | NUR ---
CHECKED ON PATIENT. NO SIGNS OF DISTRESS. DENIES PAIN. WILL CONTINUE TO MONITOR.
--- NOTE | 2021-04-04 17:30 | NUR ---
CHECKED BLOOD SUGAR, 183, COVERED WITH 2 UNITS PER SLIDING SCALE. PATIENT AWARE OF TRANSFER. PATIENTS BELONGINGS PACKED AND READY FOR TRANSFER. WILL CONTINUE TO MONITOR.
[2021-04-04] MEDS: INSULIN LISPRO SLIDING SCALE 100 UNITS/ML VIAL SUBQ PRN ×2 (17:42→20:57)
--- NOTE | 2021-04-04 18:00 | NUR ---
CALLED TELE NURSE, NANDO, NOT READY FOR REPORT, STATES WILL TALK TO TELE CHARGE NURSE AND WILL CALL BACK. WILL CONTINUE TO MONITOR.
--- NOTE | 2021-04-04 19:30 | NUR ---
TELEPHONE REPORT ENDORSED TO TELE PM NURSE, SANGEETHA GUIDRY, FOR CONTINUITY OF CARE.
--- NOTE | 2021-04-04 20:00 | NUR ---
PATIENT RESTING ON BED, ON ROOM AIR, NO SIGNS OF DISTRESS, HEAD ELEVATED, LUNGS ARE CLEAR UPON AUSCULTATION. ON GRINDER OPERATOR WITH SR. NO COMPLAIN OF ANY PAIN AT THIS TIME. SAFETY MEASURES IMPLEMENTED, CALL LIGHT WITHIN REACH.
--- NOTE | 2021-04-04 21:00 | NUR ---
SCHEDULED BLOOD SUGAR CHECK GIVEN. PT TOLERATED WELL. PT ON ROOM AIR, SR ON BINDER ROLLER. SAFETY MEASURES IMPLEMENTED, CALL LIGHT WITHIN REACH.
--- NOTE | 2021-04-04 21:05 | NUR ---
BLOOD SUGAR WAS 199, GAVE 2 UNITS FOR INULIN COVERAGE.
[2021-04-05] VITALS: BP 113/55
--- NOTE | 2021-04-05 | NUR ---
PATIENT ASLEEP, ON ROOM AIR, NO SIGNS OF DISTRESS. SR ON BAND SEWER. SAFETY MEASURES IMPLEMENTED, CALL LIGHT WITHIN REACH.
--- NOTE | 2021-04-05 02:01 | NUR ---
PATIENT ASLEEP, ON ROOM AIR, NO SIGNS OF DISTRESS, SAFETY MEASURES IMPLEMENTED, CALL LIGHT WITHIN REACH.
[2021-04-05 04:00] VITALS: BP 114/52
[2021-04-05] MEDS: INSULIN LISPRO SLIDING SCALE 100 UNITS/ML VIAL SUBQ PRN ×2 (06:18→12:18)
[2021-04-05] MEDS: BLOOD GLUCOSE MONITORING 1 DEV DEV FS SCH ×2 (06:21→12:19)
--- NOTE | 2021-04-05 06:30 | NUR ---
PATIENT RESTING ON BED, ON ROOM AIR, NO SIGNS OF DISTRESS, SAFETY MEASURES IMPLEMENTED, CALL LIGHT WITHIN REACH.
--- NOTE | 2021-04-05 07:05 | NUR ---
RECEIVED BEDSIDE REPORT FROM LOBBY CONCIERGE NURSE FOR CONTINUITY OF CARE. PT IS AWAKE AND ALERT. A&OX4. ON RA WITH BREATHING UNLABORED. SR ON TELE MONITOR. PT IS AMBULATORY INDEPENDENTLY. PT IS CONTINENT OF THE BLADDER AND BOWEL. SKIN IS WARM, DRY, AND INTACT. IV IS IN THE RIGHT FOREARM 20 GAUGE SL. RIGHT UPPER ARM PICC LINE IN PLACE RUNNING NS AT 20 ML PER HOUR PER ORDER. PT IS STABLE. PLAN OF CARE DISCUSSED.
--- NOTE | 2021-04-05 07:27 | NUR ---
ENDORSE PT TO DAY SHIFT FOR CONTINUITY OF CARE, PT STABLE CONDITION, SAFETY MEASURES IMPLEMENTED
[2021-04-05 07:59] LABS: MAGNESIUM 1.6 mg/dL (1.8-2.4); PHOSPHORUS 4.1 mg/dL (2.5-4.9)
[2021-04-05 08:00] VITALS: BP 109/66
[2021-04-05] MEDS: MAG SULF 2000 MG/WATER PREMIX 50 ML IV PRN (08:45)
[2021-04-05] MEDS: SODIUM PHOS / POTASSIUM PHOS 1 PKT PDR PO SCH ×2 (08:45→12:22)
--- NOTE | 2021-04-05 08:45 | NUR ---
MAGNESIUM SULFATE 2 GRAM WAS GIVEN IVPB ORDERED FOR MAGNESIUM LEVEL OF 1.6. MEDICATION EDUCATION WAS PROVIDED AND PT VERBALIZED UNDERSTANDING.
--- NOTE | 2021-04-05 08:50 | NUR ---
PT REFUSED LOVENOX MEDICATION. EDUCATION WAS PROVIDED ON IMPORTANCE OF MEDICATION AND PT STILL REFUSED. NOTIFIED DR. MCADAMS VIA MESSAGE.
[2021-04-05] MEDS: ENOXAPARIN 40 MG/0.4 ML SYR SUBQ SCH (08:54)
[2021-04-05 09:14] LABS: EOSINOPHILS # (AUTO) 0.2 K/uL (0-0.4); EOSINOPHILS % (AUTO) 3.6 % (0.0-4.0); HEMATOCRIT 27.7 % (36-48); HEMOGLOBIN 9.2 g/dL (12.0-16.0); LYMPHOCYTES # (AUTO) 1.7 K/uL (2.5-16.5); LYMPHOCYTES % (AUTO) 37.8 % (20.5-51.1); MEAN CORPUSCULAR HEMOGLOBIN 28 pg (27-31); MEAN CORPUSCULAR HGB CONC 33 g/dL (33-37); MEAN CORPUSCULAR VOLUME 83.9 fL (80-94); MONOCYTES # (AUTO) 0.8 K/uL (0.8-1.0); MONOCYTES % (AUTO) 18.5 % (1.7-9.3); NEUTROPHILS # (AUTO) 1.7 K/uL (1.8-7.7); NEUTROPHILS % (AUTO) 39.1 % (42.2-75.2); PLATELET COUNT (AUTO) 300 K/uL (140-450); RED CELL DISTRIBUTION WIDTH 14.7 % (11.6-13.7); WHITE BLOOD COUNT (AUTO) 4.5 K/uL (4.8-10.8)
--- NOTE | 2021-04-05 10:30 | NUR ---
ROUNDED ON PT. SHE IS SITTING UP IN BED. A&OX4. ANSWERING QUESTIONS APPROPRIATELY. NO DISTRESS NOTED. PT IS STABLE.
--- NOTE | 2021-04-05 11:20 | NUR ---
DR. MCADAMS ASKED ME TO NOTIFY HER IF THE BS READING IS BELOW 200 FOR POSSIBLE DISCHARGE. NOTIFIED HER THAT THE CURRENT BS READING IS 200. WILL WAIT FOR ORDERS. WILL ALSO ADMINISTER INSULIN PER SLIDING SCALE.
[2021-04-05] MEDS: NACL 0.9% 1,000 ML IV SCH (11:24)
[2021-04-05 12:00] VITALS: BP 130/61
--- NOTE | 2021-04-05 12:19 | NUR ---
PT'S BS READING WAS 157. PT WAS GIVEN 2 UNITS OF HUMALOG INSULIN PER SLIDING SCALE.
[2021-04-05] MEDS ORDERED: LANTUS SUBQ (12:57)
[2021-04-05 13:22] VITALS: BP 130/61
[2021-04-05] MEDS ORDERED: ATOR40TA PO (13:26)
[2021-04-05] MEDS ORDERED: AMLO10TA89 PO (13:26)
[2021-04-05] MEDS ORDERED: HUM (13:30)
[2021-04-05] MEDS ORDERED: INSU10SU2 SC (13:31)
--- NOTE | 2021-04-05 14:25 | NUR ---
PT WAS DISCHARGED FROM THE HOSPITAL. DISCHARGE INSTRUCTIONS WERE PROVIDED AND PT VERBALIZED UNDERSTANDING. PICC LINE WAS REMOVED AND NO BLEEDING WAS PRESENT. IV WAS REMOVED FROM THE RIGHT FOREARM. BLEEDING WAS CONTROLLED. ID BAND WAS REMOVED. PT SIGNED THE DISCHARGE PAPERWORK AND LEFT THE BUILDING AMBULATING INDEPENDENTLY. PT STATED DAUGHTER WAS THERE TO PICK HER UP. PT IS STABLE. VS ARE STABLE. PT IS OFF THE UNIT.
[2021-04-05 17:46] LABS: ANION GAP 15.9 (8-16); CARBON DIOXIDE 22.4 mmol/L (21-32); CREATININE 0.8 mg/dL (0.6-1.3); POTASSIUM 4.3 mmol/L (3.5-5.1)
== END 2021-04-05 14:25 | disposition home or self-care (01) | DRG 871 ==
LOC: MED 21:17 → MMU 03-31 00:53 → MIC 03-31 03:34 → MTU 04-04 19:25
PROC: 02HV33Z Insertion of Infusion Device into Superior Vena Cava, Percutaneous Approach (ICD-10-PCS; principal; 2021-04-01)
DX: A41.9 Sepsis, unspecified organism (principal); E11.01 Type 2 diabetes mellitus with hyperosmolarity with coma; E11.11 Type 2 diabetes mellitus with ketoacidosis with coma; G93.41 Metabolic encephalopathy; N17.0 Acute kidney failure with tubular necrosis; J18.9 Pneumonia, unspecified organism; E87.0 Hyperosmolality and hypernatremia; E87.1 Hypo-osmolality and hyponatremia; E87.8 Other disorders of electrolyte and fluid balance, not elsewhere classified; Z20.822 Contact with and (suspected) exposure to COVID-19; E03.9 Hypothyroidism, unspecified; E86.0 Dehydration; E83.42 Hypomagnesemia; E83.39 Other disorders of phosphorus metabolism; H44.9 Unspecified disorder of globe; I25.10 Atherosclerotic heart disease of native coronary artery without angina pectoris; E87.6 Hypokalemia; Z91.14 Patient's other noncompliance with medication regimen
CPT/HCPCS: 36415; 70450; 71045; 71250; 80048; 80053; 81001; 82140; 82150; 82803; 82948; 83036; 83605; 83690; 83735; 83880; 84100; 84134; 84439; 84443; 84484; 85025; 85610; 85730; 87040; 87081; 87086; 93005; 96365; 96366; 96367; 96368; 96375; 97110; 97112; 97163-GP; 97530; 99291; G0480; J0696; J1650; J1815; J2001; J3370; J3475; J3480; J7030; U0003

== ENCOUNTER 2022-11-20 11:27 | Inpatient (IN) | payer MEDICAID, OTHER ==
[~2022-11-20] VITALS: Ht 154.9 cm; Wt 34.5 kg
[~2022-11-20 11:27] MED LIST: AMLO10TA89 PO; ATOR40TA PO; HUM; INSU10SU2 SC
[2022-11-20 11:40] VITALS: BP 116/62
[2022-11-20] MEDS ORDERED: NACL 0.9% 1,000 ML IV ONE ×2 (11:50→12:10)
[2022-11-20 12:03] LABS: BASOPHILS # (AUTO) 0.1 K/uL (0.00-0.22); BASOPHILS % (AUTO) 0.3 % (0.0-2.0); HEMOGLOBIN 16.4 g/dL (12.0-16.0); LYMPHOCYTES # (AUTO) 0.7 K/uL (2.5-16.5); LYMPHOCYTES % (AUTO) 4.4 % (20.5-51.1); MEAN CORPUSCULAR HEMOGLOBIN 27 pg (27-31); MEAN CORPUSCULAR HGB CONC 32 g/dL (33-37); MEAN CORPUSCULAR VOLUME 84.4 fL (80-94); MONOCYTES # (AUTO) 0.8 K/uL (0.8-1.0); MONOCYTES % (AUTO) 4.6 % (1.7-9.3); NEUTROPHILS # (AUTO) 15.4 K/uL (1.8-7.7); NEUTROPHILS % (AUTO) 90.7 % (42.2-75.2); PLATELET COUNT (AUTO) 369 K/uL (140-450); RED BLOOD CELL COUNT(AUTO) 6.04 MIL/uL (4.20-5.40); RED CELL DISTRIBUTION WIDTH 14.5 % (11.6-13.7)
[2022-11-20 12:36] LABS: ALBUMIN 4.9 g/dL (3.4-5.0); ANION GAP 37.1 (8-16); ASPARTATE AMINOTRANSFERASE 19 U/L (15-37); CARBON DIOXIDE 14.1 mmol/L (21-32); CHLORIDE 94 mmol/L (98-107); CREATININE 2.8 mg/dL (0.6-1.3); GFR ARICAN-AMERICAN 22 mL/min (>90); POTASSIUM 5.2 mmol/L (3.5-5.1); SODIUM SERUM 140 mmol/L (136-145); TOTAL BILIRUBIN 0.5 mg/dL (0.0-1.0); UREA NITROGEN, BLOOD 54 mg/dL (7-18)
[2022-11-20 12:41] LABS: GLUCOSE 839 mg/dL (74-106)
--- NOTE | 2022-11-20 12:41 | NUR ---
Glucose 839, Dr Bush notified. No new orders at this time.
[2022-11-20 12:43] LABS: ACETAMINOPHEN < 0.5 ug/ml (10-30)
[2022-11-20] MEDS ORDERED: cefTRIAXone 2,000 MG in DEXTROSE 5% 100 ML IV ONE (12:55)
[2022-11-20] MEDS ORDERED: INSULIN REGULAR, HUMAN 100 UNIT in NACL 0.9% 100 ML IV ONE ×2 (13:05)
[2022-11-20] MEDS ORDERED: cefTRIAXone 1,000 MG VIAL ONE (13:12)
[2022-11-20] MEDS ORDERED: cefTRIAXone 2,000 MG VIAL ONE (13:13)
[2022-11-20] MEDS ORDERED: INSULIN REGULAR, HUMAN 100 UNIT in NACL 0.9% 100 ML IV SCH ×2 (13:45)
[2022-11-20] MEDS ORDERED: DEXTROSE 50% 50 ML SYR IVP PRN (13:45)
[2022-11-20] MEDS ORDERED: LORazepam 2 MG/ML VIAL IVP PRN (13:50)
[2022-11-20] MEDS ORDERED: ONDANSETRON 4 MG/2 ML VIAL IVP PRN (13:50)
[2022-11-20] MEDS ORDERED: ACETAMINOPHEN 325 MG TAB PO PRN (13:50)
[2022-11-20] MEDS ORDERED: DOCUSATE SODIUM 100 MG GELCAP PO PRN (13:50)
[2022-11-20] MEDS ORDERED: POTASSIUM CHLORIDE 10 MEQ TABER PO PRN (13:50)
[2022-11-20] MEDS ORDERED: ZOLPIDEM 5 MG TAB PO PRN (13:55)
[2022-11-20] MEDS: BLOOD GLUCOSE MONITORING 1 DEV DEV FS SCH ×11 (13:58→22:50)
[2022-11-20] MEDS: NACL 0.9% 1,000 ML IV SCH ×3 (14:26→20:25)
--- NOTE | 2022-11-20 14:46 | NUR ---
DR FLORES NOTIFIED OF PT'S K LEVEL 5.2. STATED TO WAIT FOR NEXT BMP CHECK, NO ORDERS FOR NOW.
[2022-11-20 14:50] LABS: BILIRUBIN,URINE 1+ (NEGATIVE); BLOOD, URINE 2+ (NEGATIVE); COLOR,URINE YELLOW (YELLOW); LEUKOCYTE ESTERASE ,URINE TRACE (NEGATIVE); NITRITE, URINE NEGATIVE (NEGATIVE); PH,URINE 5.5 (5.0-9.0); UGLUCOSE 3+ (NEGATIVE)
[2022-11-20 15:41] LABS: APPEARANCE,URINE HAZY (CLEAR)
[2022-11-20 15:50] LABS: RBC,URINE 0-5 /HPF (0-5)
[2022-11-20 15:51] LABS: TRICHOMONAS,URINE Few /HPF (None Seen)
[2022-11-20 15:52] LABS: YEAST,URINE Few /HPF (None Seen)
[2022-11-20 16:45] LABS: ANION GAP 26.4 (8-16); CARBON DIOXIDE 16.4 mmol/L (21-32); CREATININE 2.3 mg/dL (0.6-1.3); POTASSIUM 3.8 mmol/L (3.5-5.1)
--- NOTE | 2022-11-20 18:20 | NUR ---
Asked pt which family member to contact to let them know of her admission to the hosp. Pt stated to call daughter Latrice. Called aLtrice to update her. Informed her of visiting policies.
--- NOTE | 2022-11-20 19:14 | NUR ---
Pt is in bed, sleeping. Pt in no acute distress at this time.
--- NOTE | 2022-11-20 19:23 | NUR ---
report given to jaspal cunningham
--- NOTE | 2022-11-20 19:30 | NUR ---
ASSUMED CARE OF PT AT THIS TIME. PT IN POSITION OF COMFORT. UPDATED PT ON POC. PT GOING TO ICU BED 1. VSS.
[2022-11-20 20:20] LABS: ANION GAP 22.4 (8-16); CARBON DIOXIDE 19.1 mmol/L (21-32); CREATININE 1.9 mg/dL (0.6-1.3); POTASSIUM 3.5 mmol/L (3.5-5.1)
[2022-11-20 21:02] VITALS: BP 118/59
[2022-11-20] MEDS: DEXT 5% / NACL 0.45% 1,000 ML IV SCH (21:20)
[2022-11-20] MEDS ORDERED: PIPERACILLIN/TAZOBACTAM 2.25 GM VIAL IV ONE (21:24)
[2022-11-20] MEDS: PIPERACILLIN/TAZOBACTAM 2.25 GM in DEXTROSE 5% 50 ML IV SCH (21:31)
[2022-11-20] MEDS: INSULIN REGULAR, HUMAN 100 UNIT in NACL 0.9% 100 ML IV SCH ×2 (21:50)
[2022-11-20 22:00] VITALS: BP 100/55
[2022-11-20 22:26] LABS: ANION GAP 20.3 (8-16); CARBON DIOXIDE 20.3 mmol/L (21-32); CREATININE 1.7 mg/dL (0.6-1.3); POTASSIUM 3.6 mmol/L (3.5-5.1)
[2022-11-20 23:00] VITALS: BP 102/64
[2022-11-20] MEDS ORDERED: KCL 20 MEQ IN 100 mL PREMIX 200 ML IV SCH (23:35)
[2022-11-21] VITALS (24 sets, daily range): BP systolic 90–158; BP diastolic 51–83
[2022-11-21] MEDS: BLOOD GLUCOSE MONITORING 1 DEV DEV FS SCH ×25 (00:17→23:45)
[2022-11-21] MEDS: NACL 0.9% 1,000 ML IV SCH ×4 (01:25→16:41)
[2022-11-21] MEDS: DEXT 5% / NACL 0.45% 1,000 ML IV SCH ×4 (01:53→16:41)
[2022-11-21] MEDS: MORPHINE SULFATE 2 MG/ML SYR IVP PRN ×4 (02:49→20:56)
[2022-11-21] MEDS: PIPERACILLIN/TAZOBACTAM 2.25 GM in DEXTROSE 5% 50 ML IV SCH ×3 (04:23→20:55)
[2022-11-21 04:24] LABS: ANION GAP 15.7 (8-16); CARBON DIOXIDE 22.8 mmol/L (21-32); CREATININE 1.5 mg/dL (0.6-1.3); POTASSIUM 4.5 mmol/L (3.5-5.1)
[2022-11-21 05:14] LABS: BASOPHILS # (AUTO) 0.1 K/uL (0.00-0.22); BASOPHILS % (AUTO) 0.9 % (0.0-2.0); EOSINOPHILS % (AUTO) 0.3 % (0.0-4.0); HEMATOCRIT 39.7 % (36-48); HEMOGLOBIN 12.8 g/dL (12.0-16.0); LYMPHOCYTES # (AUTO) 1.5 K/uL (2.5-16.5); LYMPHOCYTES % (AUTO) 10.3 % (20.5-51.1); MEAN CORPUSCULAR HEMOGLOBIN 27 pg (27-31); MEAN CORPUSCULAR HGB CONC 32 g/dL (33-37); MONOCYTES % (AUTO) 6.9 % (1.7-9.3); NEUTROPHILS # (AUTO) 12.1 K/uL (1.8-7.7); NEUTROPHILS % (AUTO) 81.6 % (42.2-75.2); PLATELET COUNT (AUTO) 231 K/uL (140-450); RED BLOOD CELL COUNT(AUTO) 4.84 MIL/uL (4.20-5.40); RED CELL DISTRIBUTION WIDTH 14.5 % (11.6-13.7); WHITE BLOOD COUNT (AUTO) 14.8 K/uL (4.8-10.8)
--- NOTE | 2022-11-21 07:29 | NUR ---
DR. ORDONEZ (NEPHROLOGY) AT BEDSIDE, PLAN TO SWITCH IV FLUIDS TO D5 AND DC D5 1/2 DUE TO SODIUM LEVEL. Addendum: 11/21/22 at 2139 by Linda France RN INCORRECT ENTRY FOR THIS PATIENT
[2022-11-21 10:54] LABS: CARBON DIOXIDE 22.6 mmol/L (21-32); CREATININE 1.3 mg/dL (0.6-1.3); POTASSIUM 3.6 mmol/L (3.5-5.1)
[2022-11-21 15:29] LABS: ANION GAP 15.5 (8-16); CARBON DIOXIDE 19.8 mmol/L (21-32); CREATININE 1.3 mg/dL (0.6-1.3); POTASSIUM 3.3 mmol/L (3.5-5.1)
--- NOTE | 2022-11-21 19:15 | NUR ---
TRANSFER OF CARE FROM [facility], REPORT RECEIVED FROM KAMAR Ferguson RN. PATIENT RECEIVED AWAKE, ALERT AND ORIENTED x3. PATIENT IS ABLE TO MAKE NEEDS KNOWN AND IS ABLE TO FOLLOW COMMANDS. PATIENT CURRENTLY ON ROOM AIR AND HAS BEEN STARTED ON A CLEAR LIQUID DIET. PATIENT HAS COMPLAINTS OF ABDOMINAL PAIN. PATIENT HAS 20G PERIPHERAL LINE IN THE LEFT FOREARM, AND 22G PERIPHERAL LINE IN THE LEFT AC WITH THE FOLLOWING MEDICATIONS, CURRENTLY INFUSING: INSULIN DRIP AT 1.65ML/HR (0.05 IU/KG/HR) PATIENT HAS PUREWICK IN PLACE, AND SKIN IS INTACT. WILL CONTINUE TO MONITOR THIS PATIENT FOR ANY CHANGE IN CONDITION AND NOTIFY MD RIGHT AWAY.
--- NOTE | 2022-11-21 19:29 | NUR ---
DR. ORDONEZ (NEPHROLOGY) AT BEDSIDE, PLAN TO SWITCH IV FLUIDS TO D5 AND DC D5 1/2 DUE TO SODIUM LEVEL.
[2022-11-21 19:48] LABS: ANION GAP 13.5 (8-16); CREATININE 1.2 mg/dL (0.6-1.3); POTASSIUM 3.5 mmol/L (3.5-5.1)
[2022-11-21] MEDS: DEXTROSE 5% 1,000 ML IV SCH (20:54)
--- NOTE | 2022-11-21 23:24 | NUR ---
MESSAGE SENT TO DR. MATIAS REGARDING CT SCAN RESULTS
--- NOTE | 2022-11-21 23:29 | NUR ---
VISUAL CHECK ON PATIENT: PATIENT RESTING IN BED WITH EYES CLOSED, EASILY AROUSABLE. DENIES ANY CURRENT COMPLAINTS
[2022-11-22] VITALS (21 sets, daily range): BP systolic 108–157; BP diastolic 59–87
[2022-11-22] MEDS: BLOOD GLUCOSE MONITORING 1 DEV DEV FS SCH ×11 (01:01→21:55)
[2022-11-22] MEDS: DEXTROSE 50% 50 ML SYR IVP PRN ×2 (01:02→07:18)
[2022-11-22] MEDS: PIPERACILLIN/TAZOBACTAM 2.25 GM in DEXTROSE 5% 50 ML IV SCH ×3 (05:32→20:45)
[2022-11-22 05:49] LABS: BASOPHILS % (AUTO) 0.5 % (0.0-2.0); EOSINOPHILS # (AUTO) 0.2 K/uL (0-0.4); EOSINOPHILS % (AUTO) 2.6 % (0.0-4.0); HEMATOCRIT 36.6 % (36-48); HEMOGLOBIN 12.1 g/dL (12.0-16.0); LYMPHOCYTES # (AUTO) 1.9 K/uL (2.5-16.5); LYMPHOCYTES % (AUTO) 23.6 % (20.5-51.1); MEAN CORPUSCULAR HEMOGLOBIN 27 pg (27-31); MEAN CORPUSCULAR HGB CONC 33 g/dL (33-37); MEAN CORPUSCULAR VOLUME 82.1 fL (80-94); MONOCYTES # (AUTO) 0.5 K/uL (0.8-1.0); MONOCYTES % (AUTO) 6.4 % (1.7-9.3); NEUTROPHILS # (AUTO) 5.4 K/uL (1.8-7.7); NEUTROPHILS % (AUTO) 66.9 % (42.2-75.2); PLATELET COUNT (AUTO) 223 K/uL (140-450); RED BLOOD CELL COUNT(AUTO) 4.46 MIL/uL (4.20-5.40); RED CELL DISTRIBUTION WIDTH 14.2 % (11.6-13.7)
[2022-11-22 06:29] LABS: CREATININE 1.1 mg/dL (0.6-1.3)
--- NOTE | 2022-11-22 07:22 | NUR ---
TRANSFER OF CARE TO [facility], REPORT ENDORSED TO EUSEBIA Hernandez RN.
--- NOTE | 2022-11-22 07:30 | NUR ---
RECEIVED REPORT FROM NIGHTSHIFT NURSE AND STATES PT'S BLOOD GLUCOSE WAS 59 AND D50 IVP WAS GIVEN AT 0718. WILL CONTACT MD REGARDING POSSIBLE NEW ORDERS. PT A/O X4. NO SOB OR RESPIRATORY DISTRESS. ON RA. HOB ELEVATED. CLEAR LIQUID DIET. INSULIN DRIP @ 0.05 MCG/KG/HR ON LAC #20. LFA #20 SL. C/O ABDOMINAL PAIN, ACHING 6/10 BUT REFUSE PAIN MED. NEEDS ALL MET AT THIS TIME. ALL SAFETY MEASURES IN PLACE.
[2022-11-22] MEDS: ENOXAPARIN 30 MG/0.3 ML SYR SUBQ SCH (08:30)
[2022-11-22] MEDS: INSULIN REGULAR, HUMAN 100 UNIT in NACL 0.9% 100 ML IV SCH ×2 (08:36)
[2022-11-22] MEDS ORDERED: DEXTROSE 50% 50 ML SYR IVP PRN (08:55)
--- NOTE | 2022-11-22 09:04 | NUR ---
PATIENT HAS BEEN SCREENED AND CATEGORIZED HIGH NUTRITION RISK. PATIENT WILL BE SEEN WITHIN 1-2 DAYS OF ADMISSION. 11/20/22-11/22/[address] REFERRAL RECEIVED FOR UNINTENTIONAL WEIGHT LOSS
[2022-11-22] MEDS ORDERED: INSULIN LANTUS 100 UNITS/ML 10 ML VIAL SUBQ SCH (09:15)
--- NOTE | 2022-11-22 09:15 | NUR ---
CONTACTED DR. MATIAS REGARDING ANION GAP AND BLOOD GLUCOSE. ORDER FOR ONE TIME DOSE LANTUS 20 UNITS AND TO STOP INSULIN DRIP 1 HOUR AFTER. ALSO ORDER FOR SLIDING SCALE ACHS. WILL CARRY OUT ORDERS.
--- NOTE | 2022-11-22 09:56 | NUR ---
PUREWICK NOT IN PLACE AND HYGIENIC CARE PROVIDED. 800 ML URINE OUTPUT VIA PUREWICK. OFFERED A BEDSIDE COMMODE TO PT AND PT STATES SHE PREFERS A BEDSIDE COMMODE RATHER THAN PUREWICK. PT BLE STRENGTH STRONG. BUE STRENGTH STRONG. PT STATES SHE AMBULATES AT HOME. DENIES DIZZINESS. BSC PROVIDED AT BEDSIDE. ALL NEEDS MET AT THIS TIME. ALL SAFETY MEASURES IN PLACE.
--- NOTE | 2022-11-22 10:15 | NUR ---
INSULIN DRIP STOPPED. PT IN NO ACUTE DISTRESS. ON RA. ENCOURAGE PT TO ASK FOR PAIN MED IF NEEDED. HOB ELEVATED. ALL NEEDS MET AT THIS TIME. ALL SAFETY MEASURES IN PLACE.
[2022-11-22] MEDS ORDERED: hydrALAZINE 20 MG/ML VIAL IVP PRN (12:20)
--- NOTE | 2022-11-22 13:30 | NUR ---
DR. CACERES AND DR. MATIAS ROUNDED ON PT AND PT IS AWARE OF CT RESULTS. DR CACERES SPOKE WITH PT REGARDING POSSIBLE BIOPSY. DR. CACERES ORDER FOR SS CONSULT.
--- NOTE | 2022-11-22 13:45 | NUR ---
11/22/22 RD INITIAL ASSESSMENT COMPLETED. PLEASE REFER TO NUTRITION ASSESSMENT UNDER CARE ACTIVITY FOR ESTIMATED NUTRITIONAL NEEDS. 1. RECOMMEND REGULAR TEXTURE CCHO DIET. 2. RECOMMEND GLUCERNA BID TO OPTIMIZE NUTRITIONAL NEEDS. -IF PT CANNOT TOLERATE PO INTAKE AND WHEN/IF MEDICALLY APPROPRIATE TO INITIATE TUBE FEED, RECOMMEND VITAL AF 1.2 SHAYNA WITH A GOAL RATE OF 45 ML/HR -START AT 10 ML/HR AND INCREASE BY 10 ML Q4H UNTIL GOAL RATE IS REACHED PT TOLERATES -FWF 100 ML Q8H OR PER MD 3. MONITOR PO INTAKE 4. RD TO FOLLOW-UP 2-3 DAYS, HIGH RISK ANISH MONET RD
[2022-11-22] MEDS: MAG SULF 2000 MG/WATER PREMIX 50 ML IV PRN (14:15)
--- NOTE | 2022-11-22 15:24 | NUR ---
PT SAFETY AMBULATED TO AND FROM BSC WITH STEADY GAIT. PT WITH URINE OUTPUT. CONTACTED MD REGARDING BP. WILL INPUT NEW ORDERS.
[2022-11-22] MEDS ORDERED: hydrALAZINE 10 MG TAB PO PRN (15:30)
[2022-11-22] MEDS: DEXTROSE 5% 1,000 ML IV SCH (16:15)
--- NOTE | 2022-11-22 19:16 | NUR ---
REPORT GIVEN TO NIGHTSHIFT NURSE YUE FOR CONTINUITY OF CARE. PT STABLE AT THIS TIME.
--- NOTE | 2022-11-22 19:20 | NUR ---
TRANSFER OF CARE FROM [facility], REPORT RECEIVED FROM EUSEBIA Hernandez RN. PATIENT RECEIVED AWAKE, ALERT AND ORIENTED x3. PATIENT IS ABLE TO MAKE NEEDS KNOWN AND IS ABLE TO FOLLOW COMMANDS. PATIENT HAS 20G PERIPHERAL LINE IN THE LEFT FOREARM, AND 22G PERIPHERAL LINE IN THE LEFT AC WITH THE FOLLOWING MEDICATIONS, CURRENTLY INFUSING: D5 @50ML/HR AND SKIN IS INTACT. CURRENT VITALS AT START OF SHIFT: TEMP = 97.6F, HR = 65, O2 SAT= 98%, R = 18, AND BP = 126/84 WILL CONTINUE TO MONITOR THIS PATIENT FOR ANY ACUTE CHANGES AND PROMPTLY NOTIFY MD.
[2022-11-22] MEDS: INSULIN LISPRO SLIDING SCALE 100 UNITS/ML VIAL SUBQ PRN (21:54)
[2022-11-23] VITALS: BP 119/63
[2022-11-23 04:00] VITALS: BP 154/69
[2022-11-23] MEDS: PIPERACILLIN/TAZOBACTAM 2.25 GM in DEXTROSE 5% 50 ML IV SCH ×3 (05:33→21:33)
[2022-11-23 06:08] LABS: BASOPHILS % (AUTO) 0.8 % (0.0-2.0); EOSINOPHILS # (AUTO) 0.2 K/uL (0-0.4); EOSINOPHILS % (AUTO) 3.3 % (0.0-4.0); HEMATOCRIT 34.3 % (36-48); HEMOGLOBIN 11.4 g/dL (12.0-16.0); LYMPHOCYTES # (AUTO) 1.8 K/uL (2.5-16.5); LYMPHOCYTES % (AUTO) 30.9 % (20.5-51.1); MEAN CORPUSCULAR HEMOGLOBIN 27 pg (27-31); MEAN CORPUSCULAR HGB CONC 33 g/dL (33-37); MEAN CORPUSCULAR VOLUME 81.1 fL (80-94); MONOCYTES # (AUTO) 0.5 K/uL (0.8-1.0); MONOCYTES % (AUTO) 7.9 % (1.7-9.3); NEUTROPHILS # (AUTO) 3.4 K/uL (1.8-7.7); NEUTROPHILS % (AUTO) 57.1 % (42.2-75.2); PLATELET COUNT (AUTO) 210 K/uL (140-450); RED BLOOD CELL COUNT(AUTO) 4.23 MIL/uL (4.20-5.40); RED CELL DISTRIBUTION WIDTH 13.9 % (11.6-13.7); WHITE BLOOD COUNT (AUTO) 5.9 K/uL (4.8-10.8)
--- NOTE | 2022-11-23 07:27 | NUR ---
TRANSFER OF CARE TO [facility], REPORT ENDORSED TO SANNA Prabhakar RN
--- NOTE | 2022-11-23 07:34 | NUR ---
GOT REPORT FROM THE NIGHT NURSE, PT AWAKE DISCUSSED POC.[id number]
[2022-11-23 08:00] VITALS: BP 125/60
[2022-11-23] MEDS: INSULIN LISPRO SLIDING SCALE 100 UNITS/ML VIAL SUBQ PRN ×3 (08:09→18:04)
[2022-11-23] MEDS: BLOOD GLUCOSE MONITORING 1 DEV DEV FS SCH ×4 (08:12→21:33)
[2022-11-23] MEDS: ATORVASTATIN 20 MG TAB PO SCH (08:42)
[2022-11-23] MEDS: PANTOPRAZOLE 40 MG TABEC PO SCH (08:43)
[2022-11-23] MEDS: ENOXAPARIN 30 MG/0.3 ML SYR SUBQ SCH (08:43)
[2022-11-23] MEDS: amLODIPine 5 MG TAB PO SCH (08:43)
[2022-11-23] MEDS: MAG SULF 2000 MG/WATER PREMIX 50 ML IV PRN (10:17)
--- NOTE | 2022-11-23 11:39 | NUR ---
PT. WITH LOW YVETTE SCALE AT MODERATE TO HIGH RISK, CONTINUE TO FOLLOW PRESSURE INJURY PREVENTION INTERVENTIONS. -POSITIONING: TURN AND REPOSITION PATIENT Q 2H OR SOONER USE PILLOWS TO KEEP BONY PROMINENCES FROM DIRECT CONTACT WITH SURFACES USE REPOSITIONING WEDGES TO PROVIDE 30-DEGREE ANGLE FOR SIDE LYING POSITIONS OFFLOADING OR FOAM DRESSING TO ALL TUBING TO PREVENT MEDICAL DEVICES RELATED PRESSURE INJURY -RE-EVALUATING AND MANAGING INCONTINENCE MONITOR SKIN CONDITION DURING POSITION CHANGE DO NOT MASSAGE REDNESS, BONY PROMINENCES FREQUENT ERUM-CARE AND PROVIDE BARRIER CREAMS PRN IF SOILING MOISTURE CONTROL BY OFFER BED REID/URINAL /ABSORBENT PAD TO WICK AND HOLD MOISTURE KEEP SKIN DRY AND PROTECT FROM FRICTION -MANAGE FRICTION/SHEAR/MOBILITY KEEP HOB AT THE LOWEST LEVEL OF ELEVATION NO MORE THAN 30 DEGREE UNLESS OTHERWISE CONTRAINDICATED USE LIFT SHEET OR TRANSFER DEVICE TO MOVE PATIENT AND PREVENT LATERAL SHEER. PROTECT HEELS, ELBOWS BONY PROMINENCES WITH SKIN BERRIES OR FOAM DRESSING IF EXPOSED TO FRICTION OFFLOAD BILATERAL HEELS BY PLACING PILLOWS UNDER CALVES AT ALL TIMES, UNLESS OTHERWISE CONTRAINDICATED -PRESSURE REDISTRIBUTION SURFACE THERAPY JENNY ISOFLEX MATTRESS -NUTRITION: PLEASE FOLLOW RD RECOMMENDATIONS AND OFFER NUTRITION SUPPLEMENTS IF ORDERED. PLEASE CONTACT WOUND CARE NURSE FOR ANY QUESTION AND CHANGE OF WOUND CONDITION.
[2022-11-23 12:00] VITALS: BP 108/58
[2022-11-23] MEDS: DEXTROSE 5% 1,000 ML IV SCH (12:52)
--- NOTE | 2022-11-23 14:31 | NUR ---
pt sleeping now exited to be discharged tomorrow, pt uses the bedside commode with out assistance.[email or web address]
[2022-11-23 16:00] VITALS: BP 100/52
--- NOTE | 2022-11-23 19:29 | NUR ---
GAVE REPORT TO THE NIGHT NURSE, PT SAAD.[id number]
[2022-11-23 20:00] VITALS: BP 127/78
[2022-11-24] VITALS: BP 132/71
[2022-11-24 04:00] VITALS: BP 133/62
[2022-11-24] MEDS: PIPERACILLIN/TAZOBACTAM 2.25 GM in DEXTROSE 5% 50 ML IV SCH (05:01)
[2022-11-24 06:02] LABS: BASOPHILS % (AUTO) 0.4 % (0.0-2.0); EOSINOPHILS # (AUTO) 0.2 K/uL (0-0.4); EOSINOPHILS % (AUTO) 3.2 % (0.0-4.0); HEMATOCRIT 32.2 % (36-48); HEMOGLOBIN 10.7 g/dL (12.0-16.0); LYMPHOCYTES # (AUTO) 1.9 K/uL (2.5-16.5); LYMPHOCYTES % (AUTO) 31.5 % (20.5-51.1); MEAN CORPUSCULAR HEMOGLOBIN 27 pg (27-31); MEAN CORPUSCULAR HGB CONC 33 g/dL (33-37); MEAN CORPUSCULAR VOLUME 81.4 fL (80-94); MONOCYTES # (AUTO) 0.6 K/uL (0.8-1.0); MONOCYTES % (AUTO) 10.1 % (1.7-9.3); NEUTROPHILS # (AUTO) 3.2 K/uL (1.8-7.7); NEUTROPHILS % (AUTO) 54.8 % (42.2-75.2); PLATELET COUNT (AUTO) 208 K/uL (140-450); RED BLOOD CELL COUNT(AUTO) 3.95 MIL/uL (4.20-5.40); RED CELL DISTRIBUTION WIDTH 13.8 % (11.6-13.7); WHITE BLOOD COUNT (AUTO) 5.9 K/uL (4.8-10.8)
--- NOTE | 2022-11-24 07:20 | NUR ---
RECEIVED BEDSIDE REPORT FROM BREANNA IMPORT EXPORT AGENT RN, FOR CONTINUITY OF CARE. PT A/O X4, ABLE TO MAKE NEEDS KNOWN. ROOM AIR. SB ON MONITOR. 22G IV TO LEFT FOREARM SALINE LOCK. STRENGTH WNL. STANDARD PRECAUTION, CALL LIGHT WITHIN REACH. BED LOCKED AND IN LOWEST POSITION. Addendum: 11/24/22 at 0921 by Lexi Abdi RN REPORT FROM TRACY OWENS Addendum: 11/24/22 at 1224 by Lexi Abdi RN 20G IV TO L FA AND 22G IV TO LAC SALINE LOCK.
[2022-11-24] MEDS: BLOOD GLUCOSE MONITORING 1 DEV DEV FS SCH ×2 (07:37→12:09)
[2022-11-24] MEDS: INSULIN LISPRO SLIDING SCALE 100 UNITS/ML VIAL SUBQ PRN ×2 (07:39→12:32)
[2022-11-24 08:00] VITALS: BP 128/84
[2022-11-24] MEDS: PANTOPRAZOLE 40 MG TABEC PO SCH (08:02)
[2022-11-24] MEDS: ATORVASTATIN 20 MG TAB PO SCH (08:02)
[2022-11-24] MEDS: amLODIPine 5 MG TAB PO SCH (08:02)
[2022-11-24] MEDS: ENOXAPARIN 30 MG/0.3 ML SYR SUBQ SCH ×2 (08:05→08:47)
[2022-11-24] MEDS: DEXTROSE 5% 1,000 ML IV SCH (08:15)
[2022-11-24 08:38] LABS: ANION GAP 11.8 (8-16); CREATININE 0.8 mg/dL (0.6-1.3); POTASSIUM 3.8 mmol/L (3.5-5.1)
[2022-11-24 08:49] LABS: MAGNESIUM 1.8 mg/dL (1.8-2.4); PHOSPHORUS 3.6 mg/dL (2.5-4.9)
[2022-11-24] MEDS ORDERED: DOCU-299 PO (11:17)
[2022-11-24 11:27] VITALS: BP 123/62
[2022-11-24 12:00] VITALS: BP 136/67
--- NOTE | 2022-11-24 12:00 | NUR ---
PT AWAKE AND ALERT. SIGNED ALL DISCHARGE PAPERWORK.
--- NOTE | 2022-11-24 12:55 | NUR ---
PT ESCORTED TO [facility] WITH ALL BELONGINGS. VERIFIED PT HAD HOUSE KEYS ON PERSON.
== END 2022-11-24 12:55 | disposition home or self-care (01) | DRG 720 ==
LOC: MED 11:27 → MMU 13:41 → MIC 17:33
PROVIDERS: ADMIT Family Medicine; ATTEND Family Medicine
DX: A41.9 Sepsis, unspecified organism (principal); N17.0 Acute kidney failure with tubular necrosis; J96.01 Acute respiratory failure with hypoxia; E11.10 Type 2 diabetes mellitus with ketoacidosis without coma; E43 Unspecified severe protein-calorie malnutrition; J18.9 Pneumonia, unspecified organism; E87.0 Hyperosmolality and hypernatremia; C34.90 Malignant neoplasm of unspecified part of unspecified bronchus or lung; J44.0 Chronic obstructive pulmonary disease with (acute) lower respiratory infection; Z20.822 Contact with and (suspected) exposure to COVID-19; E87.5 Hyperkalemia; N18.31 Chronic kidney disease, stage 3a; Z68.1 Body mass index [BMI] 19.9 or less, adult; Z87.891 Personal history of nicotine dependence; Z79.4 Long term (current) use of insulin
CPT/HCPCS: 36415; 36600; 71045; 71250; 80048; 80053; 81001; 82803; 82948; 83605; 83690; 83735; 84100; 84484; 85025; 87040; 87081; 87086; 93005; 96365; 96367; 97116; 97163-GP; 99291; G0480; G0482; J0696; J1650; J1815; J2270; J2543; J3475; J3480; J7060; Q0092